=== PATIENT | male | born 1945 | race Caucasian/White ===

== ENCOUNTER 2018-04-18 11:01 | Inpatient (IN) | payer MEDICARE, MEDICAID ==
[~2018-04-18] VITALS: Ht 170.2 cm; Wt 43.1 kg
[2018-04-18] MEDS ORDERED: ALBU4TAB6 PO (11:04)
[2018-04-18] MEDS ORDERED: ALBUTEROL (0.083%) 2.5MG/3ML NEB HHN STA (11:31)
[2018-04-18] MEDS ORDERED: IPRATROPIUM BROMIDE (0.02%) 0.5MG/2.5ML NEB HHN STA (11:31)
[2018-04-18] MEDS ORDERED: SODIUM CHLORIDE 0.9% 1,000 ML IV ONE (11:35)
[2018-04-18 12:26] LABS: BASOPHILS % 0.4 % (0.0-2.0); EOSINOPHILS % 3.9 % (0.0-5.0); HEMATOCRIT. 41.3 % (42.0-52.0); HEMOGLOBIN. 13.1 g/dL (14.0-18.0); LYMPHOCYTES % 29.3 % (20.0-50.0); MEAN CORPUSCULAR HEMOGLOBIN 24.6 pg (28.0-32.0); MEAN CORPUSCULAR VOLUME 77.1 fL (80.0-94.0); MEAN PLATELET VOLUME 7.1 fl (7.4-10.4); MONOCYTES % 9.3 % (2.0-8.0); NEUTROPHILS % 57.1 % (40.0-76.0); PLATELET 277 x1000/uL (130-400); RED BLOOD CELL COUNT 5.35 mill/uL (4.7-6.1); RED CELL DISTRIBUTION WIDTH 15.6 % (11.6-14.6)
[2018-04-18 12:32] LABS: CHLORIDE 102 mEq/L (98-107)
[2018-04-18 12:34] LABS: PARTIAL THROMBOPLASTIN TIME 27.3 sec (23.4-31.0); PROTHROMBIN TIME 10.4 sec (9.1-11.1)
[2018-04-18 14:19] LABS: CLARITY URINE CLEAR (CLEAR); COLOR URINE YELLOW (YELLOW); KETONES URINE NEGATIVE (NEGATIVE); LEUKOCYTE ESTERASE URINE NEGATIVE (NEGATIVE); NITRITE URINE NEGATIVE (NEGATIVE); OCCULT BLOOD URINE NEGATIVE (NEGATIVE); PH URINE 6.5 (4.5-8.0); PROTEIN URINE TRACE (NEGATIVE); SPECIFIC GRAVITY URINE 1.016 (1.005-1.030); UROBILINOGEN URINE 0.2 E.U./dL (0.2-1.0)
[2018-04-18 14:53] LABS: *AMPHETAMINES SCREEN URINE NEGATIVE (NEGATIVE); *BARBITURATES SCREEN URINE NEGATIVE (NEGATIVE); *BENZODIAZEPINES SCREEN URINE NEGATIVE (NEGATIVE); *COCAINE SCREEN URINE PRESUMTIVE POSITIVE (NEGATIVE)
[2018-04-18 14:54] LABS: CANNABINOID URINE SCREEN NEGATIVE (NEGATIVE); METHADONE URINE SCREEN NEGATIVE (NEGATIVE); OPIATES URINE SCREEN NEGATIVE (NEGATIVE); PHENCYCLIDINE URINE SCREEN NEGATIVE (NEGATIVE)
[2018-04-18 15:30] VITALS: BP 120/67
[2018-04-18 16:00] VITALS: BP 120/67
[2018-04-18] MEDS ORDERED: GUAIFENESIN 200MG/10ML SUGAR FREE UDC PO PRN (17:00)
[2018-04-18] MEDS ORDERED: ONDANSETRON HCL 4MG/2ML INJ IV PRN (17:00)
[2018-04-18] MEDS ORDERED: MAGNESIUM/ALUMINUM HYDROXIDE/SIMETHICONE 30ML UDC PO PRN (17:00)
[2018-04-18] MEDS ORDERED: DEXT 5%/0.45% NACL 1000ML 1,000 ML IV SCH (17:00)
[2018-04-18] MEDS ORDERED: SODIUM POLYSTYRENE SULFONATE 15 G/60 ML BOT PO NR (17:00)
[2018-04-18] MEDS ORDERED: DIPHENHYDRAMINE 50MG/ML VIAL IV PRN (17:00)
[2018-04-18] MEDS ORDERED: IPRATROPIUM/ALBUTEROL 0.5-3(2.5)MG/3ML NEB INH PRN (17:00)
[2018-04-18] MEDS ORDERED: CLONIDINE 0.1MG TABLET PO PRN (17:00)
[2018-04-18] MEDS ORDERED: ACETAMINOPHEN 325MG TABLET PO PRN (17:00)
[2018-04-18] MEDS ORDERED: METHYLPREDNISOLONE SOD SUCC 40 MG/ML VIAL IV SCH (17:00)
[2018-04-18] MEDS ORDERED: MAGNESIUM HYDROXIDE 400MG/5ML 30ML UDC PO PRN (17:00)
[2018-04-18] MEDS ORDERED: PROMETHAZINE/DEXTROMETHORPHAN 6.25-15MG/5ML BOTTLE 120ML PO PRN (18:30)
[2018-04-18] MEDS: LORAZEPAM 1MG TABLET PO PRN (18:45)
[2018-04-18 20:08] VITALS: BP 147/93
[2018-04-18] MEDS: IPRATROPIUM/ALBUTEROL 0.5-3(2.5)MG/3ML NEB HHN SCH ×2 (20:10→23:42)
[2018-04-18] MEDS: GUAIFENESIN 600MG ER TABLET PO SCH (20:55)
[2018-04-18] MEDS: SODIUM CHLORIDE 0.9% 1,000 ML IV SCH (20:55)
[2018-04-18] MEDS ORDERED: TEMAZEPAM 15MG CAPSULE PO PRN (21:00)
[2018-04-18] MEDS ORDERED: GUAIFENESIN 600MG ER TABLET PO SCH (21:00)
[2018-04-18] MEDS ORDERED: FAMOTIDINE 20MG TABLET PO SCH (21:00)
[2018-04-19] VITALS: BP 141/87
[2018-04-19] MEDS: METHYLPREDNISOLONE SOD SUCC 40 MG/ML VIAL IV SCH ×3 (00:18→17:58)
[2018-04-19] MEDS: IPRATROPIUM/ALBUTEROL 0.5-3(2.5)MG/3ML NEB HHN SCH ×5 (03:22→19:51)
[2018-04-19 04:00] VITALS: BP 105/69
[2018-04-19 06:39] LABS: PHOSPHORUS 4.3 mg/dL (2.5-4.9)
[2018-04-19 06:40] LABS: BASOPHILS % 0.1 % (0.0-2.0); HEMATOCRIT. 38.9 % (42.0-52.0); HEMOGLOBIN. 12.4 g/dL (14.0-18.0); LYMPHOCYTES % 21.1 % (20.0-50.0); MEAN CORPUSCULAR HEMOGLOBIN 24.8 pg (28.0-32.0); MEAN PLATELET VOLUME 7.7 fl (7.4-10.4); MONOCYTES % 1.1 % (2.0-8.0); NEUTROPHILS % 77.7 % (40.0-76.0); PLATELET 270 x1000/uL (130-400); RED BLOOD CELL COUNT 4.98 mill/uL (4.7-6.1); RED CELL DISTRIBUTION WIDTH 15.5 % (11.6-14.6)
[2018-04-19] MEDS: LORAZEPAM 1MG TABLET PO PRN (09:29)
[2018-04-19] MEDS: FAMOTIDINE 20MG TABLET PO SCH (09:29)
[2018-04-19] MEDS: GUAIFENESIN 600MG ER TABLET PO SCH ×2 (09:29→21:30)
[2018-04-19] MEDS: SODIUM CHLORIDE 0.9% 1,000 ML IV SCH ×2 (09:48→22:05)
[2018-04-19 12:00] VITALS: BP 129/81
[2018-04-19 16:00] VITALS: BP 104/64
[2018-04-19] MEDS ORDERED: IPRATROPIUM/ALBUTEROL 0.5-3(2.5)MG/3ML NEB HHN SCH (18:00)
[2018-04-19] MEDS ORDERED: LORAZEPAM 0.5MG TABLET PO PRN (18:30)
[2018-04-19 20:00] VITALS: BP 106/59
[2018-04-20] VITALS: BP 115/60
[2018-04-20] MEDS: IPRATROPIUM/ALBUTEROL 0.5-3(2.5)MG/3ML NEB HHN SCH ×2 (02:10→09:08)
[2018-04-20 04:00] VITALS: BP 119/67
[2018-04-20 06:40] LABS: PHOSPHORUS 3.5 mg/dL (2.5-4.9)
[2018-04-20 07:56] VITALS: BP 126/78
[2018-04-20] MEDS: METHYLPREDNISOLONE SOD SUCC 40 MG/ML VIAL IV SCH ×2 (08:17)
[2018-04-20] MEDS: GUAIFENESIN 600MG ER TABLET PO SCH (08:19)
[2018-04-20] MEDS: FAMOTIDINE 20MG TABLET PO SCH (08:19)
[2018-04-20] MEDS ORDERED: IPRATROPIUM/ALBUTEROL 0.5-3(2.5)MG/3ML NEB HHN PRN (09:45)
[2018-04-20] MEDS ORDERED: TAMSULOSIN HCL 0.4MG SR CAPSULE PO SCH (09:45)
[2018-04-20 12:00] VITALS: BP 117/71
[2018-04-20] MEDS ORDERED: BUDESONIDE 0.5MG/2ML NEB HHN SCH (14:00)
[2018-04-20 16:00] VITALS: BP 119/70
[2018-04-20] MEDS ORDERED: METHYLPREDNISOLONE SOD SUCC 40 MG/ML VIAL IV SCH (16:00)
[2018-04-29] MEDS ORDERED: PRED10TA23 MT (15:26)
[2018-04-29] MEDS ORDERED: TAMS0.4C31 MT (15:27)
== END 2018-04-20 16:31 | disposition home or self-care (01) | DRG 140 ==
LOC: ER 11:01 → 6WST 14:19 → ENRESERV 14:32
PROVIDERS: ADMIT Internal Medicine; ATTEND Internal Medicine
DX: J44.1 Chronic obstructive pulmonary disease with (acute) exacerbation (principal); J96.00 Acute respiratory failure, unspecified whether with hypoxia or hypercapnia; N17.9 Acute kidney failure, unspecified; E44.0 Moderate protein-calorie malnutrition; E87.5 Hyperkalemia; N18.3 Chronic kidney disease, stage 3 (moderate); F17.210 Nicotine dependence, cigarettes, uncomplicated; J98.11 Atelectasis; H26.9 Unspecified cataract; E86.0 Dehydration; D56.9 Thalassemia, unspecified; F14.90 Cocaine use, unspecified, uncomplicated; Z90.3 Acquired absence of stomach [part of]; Z68.1 Body mass index [BMI] 19.9 or less, adult; Z82.49 Family history of ischemic heart disease and other diseases of the circulatory system; Z87.01 Personal history of pneumonia (recurrent); Z87.11 Personal history of peptic ulcer disease
CPT/HCPCS: 36415; 71045; 76770; 80048; 80053; 80305; 81003; 83540; 83550; 83690; 83735; 83880; 84100; 84484; 85025; 85610; 85730; 87804; 93005; 93306; 93970; 94640; 96360; 99285; J2920; J7030; J7611; J7620

== ENCOUNTER 2018-05-03 11:03 | Inpatient (IN) | payer MEDICARE, MEDICAID ==
[~2018-05-03] VITALS: Ht 172.7 cm; Wt 56.7 kg
[~2018-05-03 11:03] MED LIST: ALBU4TAB6 PO; PRED10TA23 MT; TAMS0.4C31 MT
[2018-05-03] MEDS ORDERED: ALBUTEROL (0.083%) 2.5MG/3ML NEB HHN STA (11:19)
[2018-05-03] MEDS ORDERED: METHYLPREDNISOLONE SOD SUCC 125 MG/2 ML VIAL IV STA (11:19)
[2018-05-03] MEDS ORDERED: IPRATROPIUM BROMIDE (0.02%) 0.5MG/2.5ML NEB HHN STA (11:19)
[2018-05-03 11:43] LABS: BASOPHILS % 0.4 % (0.0-2.0); EOSINOPHILS % 3.1 % (0.0-5.0); HEMATOCRIT. 38.5 % (42.0-52.0); HEMOGLOBIN. 12.1 g/dL (14.0-18.0); LYMPHOCYTES % 28.2 % (20.0-50.0); MEAN CORPUSCULAR HEMOGLOBIN 24.5 pg (28.0-32.0); MEAN CORPUSCULAR VOLUME 77.6 fL (80.0-94.0); MEAN PLATELET VOLUME 7.2 fl (7.4-10.4); MONOCYTES % 6.8 % (2.0-8.0); NEUTROPHILS % 61.5 % (40.0-76.0); PLATELET 341 x1000/uL (130-400); RED BLOOD CELL COUNT 4.96 mill/uL (4.7-6.1); RED CELL DISTRIBUTION WIDTH 15.8 % (11.6-14.6)
[2018-05-03 11:55] LABS: CHLORIDE 100 mEq/L (98-107)
[2018-05-03] MEDS ORDERED: IPRATROPIUM/ALBUTEROL 0.5-3(2.5)MG/3ML NEB INH PRN (20:00)
[2018-05-03] MEDS ORDERED: GUAIFENESIN 200MG/10ML SUGAR FREE UDC PO PRN (20:00)
[2018-05-03] MEDS ORDERED: MAGNESIUM/ALUMINUM HYDROXIDE/SIMETHICONE 30ML UDC PO PRN (20:00)
[2018-05-03] MEDS ORDERED: ONDANSETRON HCL 4MG/2ML INJ IV PRN (20:00)
[2018-05-03] MEDS ORDERED: TEMAZEPAM 15MG CAPSULE PO PRN (20:00)
[2018-05-03] MEDS ORDERED: ACETAMINOPHEN 325MG TABLET PO PRN (20:00)
[2018-05-03] MEDS ORDERED: LORAZEPAM 0.5MG TABLET PO PRN (20:00)
[2018-05-03] MEDS ORDERED: MAGNESIUM HYDROXIDE 400MG/5ML 30ML UDC PO PRN (20:00)
[2018-05-03 20:57] VITALS: BP 115/72
[2018-05-03] MEDS: SODIUM CHLORIDE 0.9% INJ 3ML FLUSH IVF SCH (22:38)
[2018-05-03] MEDS: METHYLPREDNISOLONE SOD SUCC 125 MG/2 ML VIAL IV SCH (22:38)
[2018-05-03] MEDS: IPRATROPIUM/ALBUTEROL 0.5-3(2.5)MG/3ML NEB HHN SCH (23:12)
[2018-05-03 23:42] VITALS: BP 115/72
[2018-05-04] VITALS: BP 123/62
[2018-05-04] MEDS: IPRATROPIUM/ALBUTEROL 0.5-3(2.5)MG/3ML NEB HHN SCH ×6 (04:16→21:36)
[2018-05-04] MEDS: METHYLPREDNISOLONE SOD SUCC 125 MG/2 ML VIAL IV SCH (06:08)
[2018-05-04] MEDS: SODIUM CHLORIDE 0.9% INJ 3ML FLUSH IVF SCH ×3 (06:08→22:56)
[2018-05-04 08:00] VITALS: BP 134/84
[2018-05-04] MEDS ORDERED: PNEUMOCOCCAL 23-VAL P-SAC VAC 0.5 ML IM ONE (08:00)
[2018-05-04] MEDS: GUAIFENESIN 600MG ER TABLET PO SCH ×2 (08:23→21:38)
[2018-05-04] MEDS: TAMSULOSIN HCL 0.4MG SR CAPSULE PO SCH (08:24)
[2018-05-04] MEDS: FAMOTIDINE 20MG TABLET PO SCH (08:24)
[2018-05-04] MEDS ORDERED: INFLUENZA VIRUS VACCINE(AFLURIA) 0.5ML SYR IM ONE (10:00)
[2018-05-04] MEDS ORDERED: BENZONATATE 100MG CAPSULE PO PRN (11:00)
[2018-05-04 12:00] VITALS: BP 100/60
[2018-05-04 16:00] VITALS: BP 103/63
[2018-05-04 16:43] LABS: *AMPHETAMINES SCREEN URINE NEGATIVE (NEGATIVE); *BARBITURATES SCREEN URINE NEGATIVE (NEGATIVE); *BENZODIAZEPINES SCREEN URINE NEGATIVE (NEGATIVE); *COCAINE SCREEN URINE PRESUMTIVE POSITIVE (NEGATIVE)
[2018-05-04 16:44] LABS: CANNABINOID URINE SCREEN NEGATIVE (NEGATIVE); METHADONE URINE SCREEN NEGATIVE (NEGATIVE); OPIATES URINE SCREEN NEGATIVE (NEGATIVE); PHENCYCLIDINE URINE SCREEN NEGATIVE (NEGATIVE)
[2018-05-04] MEDS: METHYLPREDNISOLONE SOD SUCC 40 MG/ML VIAL IV SCH (17:33)
[2018-05-04 20:00] VITALS: BP 121/79
[2018-05-05] VITALS: BP 106/62
[2018-05-05] MEDS: IPRATROPIUM/ALBUTEROL 0.5-3(2.5)MG/3ML NEB HHN SCH ×5 (01:07→22:13)
[2018-05-05 04:00] VITALS: BP 110/71
[2018-05-05] MEDS: SODIUM CHLORIDE 0.9% INJ 3ML FLUSH IVF SCH ×2 (06:02→20:58)
[2018-05-05 08:00] VITALS: BP 138/90
[2018-05-05] MEDS: TAMSULOSIN HCL 0.4MG SR CAPSULE PO SCH (10:09)
[2018-05-05] MEDS: FAMOTIDINE 20MG TABLET PO SCH (10:09)
[2018-05-05] MEDS: GUAIFENESIN 600MG ER TABLET PO SCH ×2 (10:09→20:56)
[2018-05-05] MEDS: METHYLPREDNISOLONE SOD SUCC 40 MG/ML VIAL IV SCH (10:10)
[2018-05-05 12:00] VITALS: BP 110/69
[2018-05-05 16:00] VITALS: BP 100/54
[2018-05-05 20:00] VITALS: BP_SYST 120; BP_SYST 160; BP_DIAS 76; BP_DIAS 83
[2018-05-06 04:00] VITALS: BP 117/65
[2018-05-06] MEDS: IPRATROPIUM/ALBUTEROL 0.5-3(2.5)MG/3ML NEB HHN SCH ×4 (05:54→20:55)
[2018-05-06] MEDS: SODIUM CHLORIDE 0.9% INJ 3ML FLUSH IVF SCH ×3 (06:28→22:47)
[2018-05-06 08:00] VITALS: BP 109/85
[2018-05-06] MEDS: GUAIFENESIN 600MG ER TABLET PO SCH ×2 (09:30→21:42)
[2018-05-06] MEDS: FAMOTIDINE 20MG TABLET PO SCH (09:30)
[2018-05-06] MEDS: PREDNISONE 20MG TABLET PO SCH (09:30)
[2018-05-06] MEDS: TAMSULOSIN HCL 0.4MG SR CAPSULE PO SCH (09:31)
[2018-05-06 12:00] VITALS: BP 94/54
[2018-05-06 12:03] LABS: BG BASE EXCESS 7.2 mmol/L (-2.0-2.0); BG CARBOXYHEMOGLOBIN 0.8 % (0.5-1.5); BG DEOXYHEMOGLOBIN 5.5 % (0.0-5.0); BG FRACTION INSPIRED OXYGEN 21; BG HCO3 ACT 33.2 mmol/L (22.0-26.0); BG METHEMOGLOBIN 0.2 % (0.0-1.5); BG OXYGEN SATURATION 94.4 % (92.0-98.5); BG OXYHEMOGLOBIN 93.5 % (94.0-97.0); BG PCO2 53.5 mmHg (35.0-45.0); BG PO2 71.5 mmHg (75.0-100.0); BG SAMPLE SITE RIGHT RADIAL; BG TOTAL HEMOGLOBIN 11.8 g/dL (12.0-18.0); BG VENT MODE ROOM AIR
[2018-05-06 16:00] VITALS: BP 103/75
[2018-05-06 20:00] VITALS: BP 128/77
[2018-05-07] VITALS: BP 107/70
[2018-05-07] MEDS: IPRATROPIUM/ALBUTEROL 0.5-3(2.5)MG/3ML NEB HHN SCH ×5 (00:31→16:00)
[2018-05-07 04:00] VITALS: BP 104/69
[2018-05-07] MEDS: SODIUM CHLORIDE 0.9% INJ 3ML FLUSH IVF SCH ×2 (07:31→17:03)
[2018-05-07] MEDS: TAMSULOSIN HCL 0.4MG SR CAPSULE PO SCH (09:11)
[2018-05-07] MEDS: FAMOTIDINE 20MG TABLET PO SCH (09:12)
[2018-05-07] MEDS: GUAIFENESIN 600MG ER TABLET PO SCH (09:12)
[2018-05-07] MEDS: PREDNISONE 20MG TABLET PO SCH (09:12)
[2018-05-07 18:05] VITALS: BP 102/56
== END 2018-05-07 18:35 | disposition home or self-care (01) | DRG 816 ==
LOC: ER 11:03 → 5WST 12:25 → ENRESERV 18:59
PROVIDERS: ADMIT Internal Medicine; ATTEND Internal Medicine
DX: T40.5X1A Poisoning by cocaine, accidental (unintentional), initial encounter (principal); J96.00 Acute respiratory failure, unspecified whether with hypoxia or hypercapnia; J44.1 Chronic obstructive pulmonary disease with (acute) exacerbation; E44.1 Mild protein-calorie malnutrition; J45.901 Unspecified asthma with (acute) exacerbation; J68.0 Bronchitis and pneumonitis due to chemicals, gases, fumes and vapors; Z96.641 Presence of right artificial hip joint; D72.829 Elevated white blood cell count, unspecified; F14.90 Cocaine use, unspecified, uncomplicated; H54.7 Unspecified visual loss; K44.9 Diaphragmatic hernia without obstruction or gangrene; N18.9 Chronic kidney disease, unspecified; N40.0 Benign prostatic hyperplasia without lower urinary tract symptoms; Z87.11 Personal history of peptic ulcer disease; Z87.891 Personal history of nicotine dependence; Z90.3 Acquired absence of stomach [part of]; Z91.14 Patient's other noncompliance with medication regimen; Z88.0 Allergy status to penicillin; Z79.899 Other long term (current) drug therapy; Y92.89 Other specified places as the place of occurrence of the external cause; Z68.1 Body mass index [BMI] 19.9 or less, adult
CPT/HCPCS: 36415; 36600; 71045; 80305; 82375; 82805; 83880; 84484; 90686; 90732; 93005; 94618; 94640; 96374; 97116; 97162; 99285; C1893; J2920; J2930; J7512; J7611; J7620

== ENCOUNTER 2018-05-16 05:52 | Inpatient (IN) | payer MEDICARE, MEDICAID ==
[~2018-05-16] VITALS: Ht 172.7 cm; Wt 85.0 kg
[2018-05-16] MEDS ORDERED: METHYLPREDNISOLONE SOD SUCC 125 MG/2 ML VIAL IV STA (06:34)
[2018-05-16] MEDS ORDERED: IPRATROPIUM BROMIDE (0.02%) 0.5MG/2.5ML NEB HHN STA ×2 (06:34→09:34)
[2018-05-16] MEDS ORDERED: ALBUTEROL (0.083%) 2.5MG/3ML NEB HHN STA ×2 (06:34→09:34)
[2018-05-16] MEDS ORDERED: MAGNESIUM 2 G PREMIX 50 ML IV STA (06:34)
[2018-05-16] MEDS ORDERED: LEVOFLOXACIN 500MG PREMIX 100 ML IV ONE (06:45)
[2018-05-16] MEDS ORDERED: SODIUM CHLORIDE 0.9% 1000ML BAG (SEPSIS BOLUS) IV ONE (06:45)
[2018-05-16 07:19] LABS: BASOPHILS % 0.2 % (0.0-2.0); EOSINOPHILS % 0.8 % (0.0-5.0); HEMATOCRIT. 34.5 % (42.0-52.0); HEMOGLOBIN. 10.9 g/dL (14.0-18.0); LYMPHOCYTES % 26.6 % (20.0-50.0); MEAN CORPUSCULAR HEMOGLOBIN 24.3 pg (28.0-32.0); MEAN CORPUSCULAR VOLUME 77.1 fL (80.0-94.0); MONOCYTES % 4.4 % (2.0-8.0); PLATELET 319 x1000/uL (130-400); RED BLOOD CELL COUNT 4.47 mill/uL (4.7-6.1); RED CELL DISTRIBUTION WIDTH 15.8 % (11.6-14.6)
[2018-05-16 07:27] LABS: PARTIAL THROMBOPLASTIN TIME 26.9 sec (23.4-31.0)
[2018-05-16 07:30] LABS: CHLORIDE 105 mEq/L (98-107)
[2018-05-16] MEDS ORDERED: IBUPROFEN 600MG TABLET PO PRN (11:30)
[2018-05-16] MEDS: FAMOTIDINE 20MG TABLET PO SCH (12:00)
[2018-05-16 13:00] VITALS: BP 107/46
[2018-05-16] MEDS: METHYLPREDNISOLONE SOD SUCC 125 MG/2 ML VIAL IV SCH ×2 (13:58→21:30)
[2018-05-16] MEDS ORDERED: ONDANSETRON HCL 4MG/2ML INJ IV PRN (15:15)
[2018-05-16] MEDS ORDERED: GUAIFENESIN 200MG/10ML SUGAR FREE UDC PO PRN (15:15)
[2018-05-16] MEDS ORDERED: CLONIDINE 0.1MG TABLET PO PRN (15:15)
[2018-05-16] MEDS ORDERED: IPRATROPIUM/ALBUTEROL 0.5-3(2.5)MG/3ML NEB INH PRN (15:15)
[2018-05-16] MEDS ORDERED: MAGNESIUM/ALUMINUM HYDROXIDE/SIMETHICONE 30ML UDC PO PRN (15:15)
[2018-05-16] MEDS: IPRATROPIUM/ALBUTEROL 0.5-3(2.5)MG/3ML NEB HHN SCH ×2 (15:24→21:06)
[2018-05-16 16:00] VITALS: BP 105/57
[2018-05-16] MEDS ORDERED: MVI, ADULT NO.1 10 ML, FOLIC ACID 1 MG, THIAMINE HCL 100 MG in SODIUM CHLORIDE 0.9% 1,0... IV NR ×4 (17:30)
[2018-05-16 20:00] VITALS: BP 104/54
[2018-05-17] VITALS: BP 112/22
[2018-05-17] MEDS: IPRATROPIUM/ALBUTEROL 0.5-3(2.5)MG/3ML NEB HHN SCH ×8 (01:05→23:40)
[2018-05-17 04:30] VITALS: BP 112/66
[2018-05-17] MEDS: METHYLPREDNISOLONE SOD SUCC 125 MG/2 ML VIAL IV SCH ×3 (05:22→21:07)
[2018-05-17] MEDS: ACETAMINOPHEN 325MG TABLET PO PRN (05:37)
[2018-05-17 07:17] LABS: CLARITY URINE CLEAR (CLEAR); COLOR URINE YELLOW (YELLOW); KETONES URINE NEGATIVE (NEGATIVE); LEUKOCYTE ESTERASE URINE NEGATIVE (NEGATIVE); NITRITE URINE NEGATIVE (NEGATIVE); OCCULT BLOOD URINE NEGATIVE (NEGATIVE); PH URINE 5.5 (4.5-8.0); PROTEIN URINE NEGATIVE (NEGATIVE); SPECIFIC GRAVITY URINE 1.008 (1.005-1.030); UROBILINOGEN URINE 0.2 E.U./dL (0.2-1.0)
[2018-05-17 08:00] VITALS: BP 113/61
[2018-05-17] MEDS: TAMSULOSIN HCL 0.4MG SR CAPSULE PO SCH (09:12)
[2018-05-17] MEDS: FAMOTIDINE 20MG TABLET PO SCH (09:12)
[2018-05-17 12:00] VITALS: BP 120/66
[2018-05-17] MEDS: DEXT 5%/0.45% NACL 1000ML 1,000 ML IV SCH ×2 (13:37→22:55)
[2018-05-17 16:13] VITALS: BP 127/63
[2018-05-17 17:07] LABS: *AMPHETAMINES SCREEN URINE NEGATIVE (NEGATIVE); *BARBITURATES SCREEN URINE NEGATIVE (NEGATIVE); *BENZODIAZEPINES SCREEN URINE NEGATIVE (NEGATIVE); *COCAINE SCREEN URINE PRESUMTIVE POSITIVE (NEGATIVE)
[2018-05-17 17:08] LABS: CANNABINOID URINE SCREEN NEGATIVE (NEGATIVE); METHADONE URINE SCREEN NEGATIVE (NEGATIVE); OPIATES URINE SCREEN NEGATIVE (NEGATIVE); PHENCYCLIDINE URINE SCREEN NEGATIVE (NEGATIVE)
[2018-05-17] MEDS ORDERED: KETOROLAC 15MG/ML VIAL IV NR (18:30)
[2018-05-17 20:00] VITALS: BP 128/74
[2018-05-18] VITALS (7 sets, daily range): BP systolic 99–126; BP diastolic 60–84
[2018-05-18] MEDS: METHYLPREDNISOLONE SOD SUCC 125 MG/2 ML VIAL IV SCH ×2 (05:15→14:50)
[2018-05-18] MEDS: ACETAMINOPHEN 325MG TABLET PO PRN ×3 (06:29→20:04)
[2018-05-18] MEDS: IPRATROPIUM/ALBUTEROL 0.5-3(2.5)MG/3ML NEB HHN SCH ×5 (07:34→21:17)
[2018-05-18 08:11] LABS: BASOPHILS % 0.1 % (0.0-2.0); HEMATOCRIT. 34.3 % (42.0-52.0); HEMOGLOBIN. 10.6 g/dL (14.0-18.0); LYMPHOCYTES % 20.4 % (20.0-50.0); MEAN CORPUSCULAR HEMOGLOBIN 24.1 pg (28.0-32.0); MEAN CORPUSCULAR VOLUME 77.7 fL (80.0-94.0); MEAN PLATELET VOLUME 7.6 fl (7.4-10.4); MONOCYTES % 4.2 % (2.0-8.0); NEUTROPHILS % 75.3 % (40.0-76.0); PLATELET 325 x1000/uL (130-400); RED BLOOD CELL COUNT 4.42 mill/uL (4.7-6.1); RED CELL DISTRIBUTION WIDTH 15.9 % (11.6-14.6)
[2018-05-18] MEDS: FAMOTIDINE 20MG TABLET PO SCH (09:57)
[2018-05-18] MEDS: TAMSULOSIN HCL 0.4MG SR CAPSULE PO SCH (09:57)
[2018-05-18] MEDS: DEXT 5%/0.45% NACL 1000ML 1,000 ML IV SCH (09:58)
[2018-05-18] MEDS: METHYLPREDNISOLONE SOD SUCC 40 MG/ML VIAL IV SCH (20:04)
[2018-05-19] VITALS: BP 110/60
[2018-05-19] MEDS: IPRATROPIUM/ALBUTEROL 0.5-3(2.5)MG/3ML NEB HHN SCH ×4 (00:54→11:01)
[2018-05-19 04:00] VITALS: BP 139/61
[2018-05-19] MEDS: DEXT 5%/0.45% NACL 1000ML 1,000 ML IV SCH ×2 (04:46→15:30)
[2018-05-19] MEDS: TAMSULOSIN HCL 0.4MG SR CAPSULE PO SCH (10:02)
[2018-05-19] MEDS: METHYLPREDNISOLONE SOD SUCC 40 MG/ML VIAL IV SCH (10:02)
[2018-05-19] MEDS: ACETAMINOPHEN 325MG TABLET PO PRN (10:02)
[2018-05-19] MEDS: FAMOTIDINE 20MG TABLET PO SCH (10:02)
[2018-05-19 12:00] VITALS: BP 114/72
[2018-05-19 15:22] VITALS: BP 114/72
[2018-05-19 16:00] VITALS: BP 164/69
[2018-05-19 17:00] VITALS: BP 139/62
== END 2018-05-19 17:10 | disposition home or self-care (01) | DRG 816 ==
LOC: ER 05:52 → 8WST 08:10 → EDBEDREQ 08:14 → ENRESERV 09:36
PROVIDERS: ADMIT Internal Medicine; ATTEND Internal Medicine
DX: T40.5X1A Poisoning by cocaine, accidental (unintentional), initial encounter (principal); J96.00 Acute respiratory failure, unspecified whether with hypoxia or hypercapnia; N17.9 Acute kidney failure, unspecified; R65.10 Systemic inflammatory response syndrome (SIRS) of non-infectious origin without acute organ dysfunction; J68.0 Bronchitis and pneumonitis due to chemicals, gases, fumes and vapors; J44.1 Chronic obstructive pulmonary disease with (acute) exacerbation; E86.0 Dehydration; N18.9 Chronic kidney disease, unspecified; K30 Functional dyspepsia; M25.511 Pain in right shoulder; T38.0X5A Adverse effect of glucocorticoids and synthetic analogues, initial encounter; D72.829 Elevated white blood cell count, unspecified; W01.0XXA Fall on same level from slipping, tripping and stumbling without subsequent striking against object, initial encounter; H54.7 Unspecified visual loss; Z96.641 Presence of right artificial hip joint; N40.0 Benign prostatic hyperplasia without lower urinary tract symptoms; H26.9 Unspecified cataract; Z87.11 Personal history of peptic ulcer disease; Z87.891 Personal history of nicotine dependence; Z90.3 Acquired absence of stomach [part of]; Z88.0 Allergy status to penicillin; Z79.899 Other long term (current) drug therapy; Z87.01 Personal history of pneumonia (recurrent); Y92.89 Other specified places as the place of occurrence of the external cause; Z87.81 Personal history of (healed) traumatic fracture; Y93.89 Activity, other specified; Y99.8 Other external cause status
CPT/HCPCS: 36415; 71045; 73030; 73060; 80048; 80305; 83605; 83880; 84145; 84484; 93005; 96365; 96366; 96375; 99291; A4565; J1885; J1956; J2920; J2930; J3411; J3475; J3490; J7030; J7611; J7620

== ENCOUNTER 2018-05-30 12:49 | Inpatient (IN) | payer MEDICARE, MEDICAID ==
[~2018-05-30] VITALS: Ht 172.7 cm; Wt 61.2 kg
[~2018-05-30 12:49] MED LIST changes: -ALBU4TAB6 PO; -PRED10TA23 MT; -TAMS0.4C31 MT; +TAMS0.4C31 PO
[2018-05-30] MEDS ORDERED: ALBUTEROL (0.083%) 2.5MG/3ML NEB HHN STA (12:53)
[2018-05-30] MEDS ORDERED: METHYLPREDNISOLONE SOD SUCC 125 MG/2 ML VIAL IV STA (12:53)
[2018-05-30 15:34] LABS: BASOPHILS % 0.1 % (0.0-2.0); EOSINOPHILS % 1.2 % (0.0-5.0); HEMATOCRIT. 35.1 % (42.0-52.0); HEMOGLOBIN. 10.9 g/dL (14.0-18.0); LYMPHOCYTES % 24.5 % (20.0-50.0); MEAN CORPUSCULAR HEMOGLOBIN 24.2 pg (28.0-32.0); MEAN CORPUSCULAR VOLUME 77.7 fL (80.0-94.0); MEAN PLATELET VOLUME 7.2 fl (7.4-10.4); MONOCYTES % 4.3 % (2.0-8.0); NEUTROPHILS % 69.9 % (40.0-76.0); PLATELET 390 x1000/uL (130-400); RED BLOOD CELL COUNT 4.51 mill/uL (4.7-6.1); RED CELL DISTRIBUTION WIDTH 16.3 % (11.6-14.6)
[2018-05-30 15:35] LABS: CHLORIDE 101 mEq/L (98-107)
[2018-05-30 16:00] VITALS: BP 95/68
[2018-05-30 18:14] VITALS: BP 95/68
[2018-05-30] MEDS ORDERED: DEXTROSE 50% WATER 50ML SYRINGE IV PRN (18:30)
[2018-05-30] MEDS ORDERED: MAGNESIUM/ALUMINUM HYDROXIDE/SIMETHICONE 30ML UDC PO PRN (18:30)
[2018-05-30] MEDS ORDERED: ACETAMINOPHEN 650MG/20.3ML UDC GT PRN (18:30)
[2018-05-30] MEDS ORDERED: ACETAMINOPHEN 650MG SUPP PR PRN (18:30)
[2018-05-30] MEDS ORDERED: GUAIFENESIN 200MG/10ML SUGAR FREE UDC PO PRN (18:30)
[2018-05-30] MEDS ORDERED: DIPHENHYDRAMINE 50MG/ML VIAL IV PRN (18:30)
[2018-05-30] MEDS ORDERED: DOCUSATE SODIUM 100MG CAPSULE PO PRN (18:30)
[2018-05-30] MEDS ORDERED: CLONIDINE 0.1MG TABLET PO PRN (18:30)
[2018-05-30] MEDS ORDERED: NA PHOS,M-B/NA PHOS,DI-BA ENEMA 118ML PR PRN (18:30)
[2018-05-30] MEDS ORDERED: ONDANSETRON HCL 4MG/2ML INJ IV PRN (18:30)
[2018-05-30] MEDS ORDERED: ENOXAPARIN 40MG/0.4ML SYR SUBCUT SCH (18:45)
[2018-05-30 19:03] LABS: D-DIMER 1.12 mg/L FEU (<0.50); PROTHROMBIN TIME 10.1 sec (9.1-11.1)
[2018-05-30] MEDS: IPRATROPIUM/ALBUTEROL 0.5-3(2.5)MG/3ML NEB INH SCH (19:37)
[2018-05-30 20:00] VITALS: BP 109/64
[2018-05-30] MEDS ORDERED: SODIUM CHLORIDE 10% FOR INH 15ML VIAL NEB INH NR (20:00)
[2018-05-30] MEDS: ACETAMINOPHEN 325MG TABLET PO PRN (20:49)
[2018-05-30] MEDS: SODIUM CHLORIDE 0.9% 1,000 ML IV SCH (20:50)
[2018-05-30] MEDS: BLOOD SUGAR DIAGNOSTIC STRIP TEST SCH (21:04)
[2018-05-30] MEDS: INSULIN LISPRO 100 UNITS/ML SUBCUT SCH (21:11)
[2018-05-30] MEDS: AZITHROMYCIN 500 MG in DEXT 5% WATER 250 ML IV SCH (21:31)
[2018-05-30] MEDS ORDERED: SODIUM CHLORIDE 0.9% INJ 3ML FLUSH IVF SCH (22:00)
[2018-05-30] MEDS ORDERED: P20 PO (22:12)
[2018-05-30] MEDS ORDERED: ASPI-1159 PO (22:13)
[2018-05-30] MEDS ORDERED: LEVO500T89 PO (22:13)
[2018-05-30] MEDS ORDERED: MONT10TA21 PO (22:13)
[2018-05-30] MEDS ORDERED: PRED10TA23 PO (22:14)
[2018-05-30] MEDS ORDERED: CARV3.1242 PO (22:15)
[2018-05-30] MEDS ORDERED: BUDE6HFA INH (22:15)
[2018-05-30 23:36] LABS: CREATINE KINASE 37 IU/L (39-308)
[2018-05-30 23:37] LABS: CREATINE KINASE MB FRACTION 2.9 ng/mL (0.5-3.6)
[2018-05-30] MEDS: CEFTRIAXONE 1 G PREMIX 50 ML IV SCH (23:54)
[2018-05-31] VITALS: BP 97/59
[2018-05-31] MEDS: IPRATROPIUM/ALBUTEROL 0.5-3(2.5)MG/3ML NEB INH SCH ×4 (02:05→18:50)
[2018-05-31 04:00] VITALS: BP 100/61
[2018-05-31 05:09] LABS: CLARITY URINE CLEAR (CLEAR); COLOR URINE YELLOW (YELLOW); KETONES URINE NEGATIVE (NEGATIVE); LEUKOCYTE ESTERASE URINE NEGATIVE (NEGATIVE); NITRITE URINE NEGATIVE (NEGATIVE); OCCULT BLOOD URINE NEGATIVE (NEGATIVE); PROTEIN URINE NEGATIVE (NEGATIVE); SPECIFIC GRAVITY URINE 1.024 (1.005-1.030); UROBILINOGEN URINE 0.2 E.U./dL (0.2-1.0)
[2018-05-31 05:36] LABS: *AMPHETAMINES SCREEN URINE NEGATIVE (NEGATIVE); *BARBITURATES SCREEN URINE NEGATIVE (NEGATIVE); *BENZODIAZEPINES SCREEN URINE NEGATIVE (NEGATIVE); *COCAINE SCREEN URINE PRESUMTIVE POSITIVE (NEGATIVE)
[2018-05-31 05:37] LABS: CANNABINOID URINE SCREEN NEGATIVE (NEGATIVE); METHADONE URINE SCREEN NEGATIVE (NEGATIVE); OPIATES URINE SCREEN NEGATIVE (NEGATIVE); PHENCYCLIDINE URINE SCREEN NEGATIVE (NEGATIVE)
[2018-05-31] MEDS: BLOOD SUGAR DIAGNOSTIC STRIP TEST SCH ×4 (06:22→22:00)
[2018-05-31 06:24] LABS: HEMATOCRIT. 29.5 % (42.0-52.0); HEMOGLOBIN. 9.5 g/dL (14.0-18.0); MEAN CORPUSCULAR HEMOGLOBIN 24.9 pg (28.0-32.0); MEAN CORPUSCULAR VOLUME 77.2 fL (80.0-94.0); MEAN PLATELET VOLUME 7.3 fl (7.4-10.4); PLATELET 352 x1000/uL (130-400); RED BLOOD CELL COUNT 3.82 mill/uL (4.7-6.1); RED CELL DISTRIBUTION WIDTH 15.7 % (11.6-14.6)
[2018-05-31] MEDS: GLIPIZIDE 5MG TABLET PO SCH ×2 (06:24→18:12)
[2018-05-31] MEDS: ACETAMINOPHEN 325MG TABLET PO PRN ×2 (06:26→20:37)
[2018-05-31] MEDS: INSULIN LISPRO 100 UNITS/ML SUBCUT SCH ×4 (06:27→22:05)
[2018-05-31 06:46] LABS: CHLORIDE 103 mEq/L (98-107)
[2018-05-31 07:13] LABS: LDL CHOLESTEROL 90 mg/dL (5-100)
[2018-05-31 07:14] LABS: CREATINE KINASE 40 IU/L (39-308); HDL CHOLESTEROL 61 mg/dL (40-59)
[2018-05-31 07:17] LABS: CREATINE KINASE MB FRACTION 2.6 ng/mL (0.5-3.6)
[2018-05-31 07:29] LABS: BG BASE EXCESS 0.8 mmol/L (-2.0-2.0); BG CARBOXYHEMOGLOBIN 0.5 % (0.5-1.5); BG DEOXYHEMOGLOBIN 5.6 % (0.0-5.0); BG HCO3 ACT 26.1 mmol/L (22.0-26.0); BG METHEMOGLOBIN 0.3 % (0.0-1.5); BG OXYGEN SATURATION 94.4 % (92.0-98.5); BG OXYHEMOGLOBIN 93.6 % (94.0-97.0); BG PCO2 44.8 mmHg (35.0-45.0); BG PH 7.384 (7.350-7.450); BG PO2 75.4 mmHg (75.0-100.0); BG SAMPLE SITE RIGHT RADIAL; BG TOTAL HEMOGLOBIN 10.5 g/dL (12.0-18.0); BG VENT MODE ROOM AIR
[2018-05-31 12:00] VITALS: BP 111/64
[2018-05-31 13:11] LABS: PLATELET ESTIMATE NORMAL
[2018-05-31 16:00] VITALS: BP 123/69
[2018-05-31] MEDS: SODIUM CHLORIDE 0.9% 1,000 ML IV SCH ×2 (18:14→19:30)
[2018-05-31 20:00] VITALS: BP 98/69
[2018-05-31] MEDS: AZITHROMYCIN 500 MG in DEXT 5% WATER 250 ML IV SCH (20:36)
[2018-05-31] MEDS: IPRATROPIUM/ALBUTEROL 0.5-3(2.5)MG/3ML NEB INH PRN (21:24)
[2018-05-31] MEDS: CEFTRIAXONE 1 G PREMIX 50 ML IV SCH (22:34)
[2018-06-01] VITALS: BP 91/50
[2018-06-01] MEDS: IPRATROPIUM/ALBUTEROL 0.5-3(2.5)MG/3ML NEB INH SCH ×3 (01:55→12:50)
[2018-06-01 04:00] VITALS: BP 106/61
[2018-06-01 05:36] LABS: HEMOGLOBIN. 9.4 g/dL (14.0-18.0); MEAN CORPUSCULAR HEMOGLOBIN 25.1 pg (28.0-32.0); MEAN CORPUSCULAR VOLUME 77.7 fL (80.0-94.0); MEAN PLATELET VOLUME 7.3 fl (7.4-10.4); PLATELET 329 x1000/uL (130-400); RED BLOOD CELL COUNT 3.74 mill/uL (4.7-6.1); RED CELL DISTRIBUTION WIDTH 15.7 % (11.6-14.6)
[2018-06-01] MEDS: ACETAMINOPHEN 325MG TABLET PO PRN (05:51)
[2018-06-01] MEDS: INSULIN LISPRO 100 UNITS/ML SUBCUT SCH ×3 (06:02→16:31)
[2018-06-01] MEDS: BLOOD SUGAR DIAGNOSTIC STRIP TEST SCH ×3 (06:03→16:31)
[2018-06-01 06:22] LABS: CHLORIDE 103 mEq/L (98-107)
[2018-06-01] MEDS: GLIPIZIDE 5MG TABLET PO SCH ×2 (10:00→16:31)
[2018-06-01] MEDS: SODIUM CHLORIDE 0.9% 1,000 ML IV SCH (10:02)
[2018-06-01 11:15] VITALS: BP 98/54
[2018-06-01 12:00] VITALS: BP 104/61
[2018-06-01 12:28] LABS: PLATELET ESTIMATE NORMAL
[2018-06-01] MEDS ORDERED: NEOMY SULF/BACITRAC ZN/POLY OINT 28GM TOP SCH (13:00)
[2018-06-01] MEDS: IPRATROPIUM/ALBUTEROL 0.5-3(2.5)MG/3ML NEB INH PRN (15:22)
[2018-06-01 16:00] VITALS: BP 123/78
[2018-06-01 16:32] VITALS: BP 123/78
== END 2018-06-01 17:55 | disposition home or self-care (01) | DRG 816 ==
LOC: ER 12:49 → EDBEDREQ 15:50 → 5WST 15:51 → EDBEDREQ 15:53 → ENRESERV 15:55
PROVIDERS: ADMIT Family Medicine; ATTEND Family Medicine
DX: T40.5X1A Poisoning by cocaine, accidental (unintentional), initial encounter (principal); J96.20 Acute and chronic respiratory failure, unspecified whether with hypoxia or hypercapnia; E44.0 Moderate protein-calorie malnutrition; E11.22 Type 2 diabetes mellitus with diabetic chronic kidney disease; E11.36 Type 2 diabetes mellitus with diabetic cataract; I50.9 Heart failure, unspecified; J68.0 Bronchitis and pneumonitis due to chemicals, gases, fumes and vapors; J44.1 Chronic obstructive pulmonary disease with (acute) exacerbation; J44.0 Chronic obstructive pulmonary disease with (acute) lower respiratory infection; N18.9 Chronic kidney disease, unspecified; J20.9 Acute bronchitis, unspecified; F14.10 Cocaine abuse, uncomplicated; F17.210 Nicotine dependence, cigarettes, uncomplicated; H54.7 Unspecified visual loss; S30.810A Abrasion of lower back and pelvis, initial encounter; N40.0 Benign prostatic hyperplasia without lower urinary tract symptoms; Z96.641 Presence of right artificial hip joint; Z59.0 Homelessness; Z87.01 Personal history of pneumonia (recurrent); Z87.11 Personal history of peptic ulcer disease; Z88.0 Allergy status to penicillin; Z90.3 Acquired absence of stomach [part of]; Z87.81 Personal history of (healed) traumatic fracture; Z98.42 Cataract extraction status, left eye; Z98.41 Cataract extraction status, right eye; Z71.6 Tobacco abuse counseling; Z79.82 Long term (current) use of aspirin; Z79.899 Other long term (current) drug therapy; Z71.51 Drug abuse counseling and surveillance of drug abuser; X58.XXXA Exposure to other specified factors, initial encounter; Y92.89 Other specified places as the place of occurrence of the external cause; Y93.89 Activity, other specified; Y99.8 Other external cause status; Z68.20 Body mass index [BMI] 20.0-20.9, adult
CPT/HCPCS: 36415; 36600; 71045; 80061; 80305; 82375; 82550; 82553; 82805; 82962; 83036; 83880; 84134; 84484; 85379; 87804; 93005; 93970; 94640; 94644; 96374; 99285; J0456; J0696; J1650; J1815; J2930; J7030; J7060; J7131; J7611; J7620

== ENCOUNTER 2018-06-11 06:22 | Inpatient (IN) | payer MEDICARE, MEDICAID ==
[~2018-06-11] VITALS: Ht 165.1 cm; Wt 67.6 kg
[~2018-06-11 06:22] MED LIST changes: +ASPI-1159 PO; +BUDE6HFA INH; +CARV3.1242 PO; +LEVO500T89 PO; +MONT10TA21 PO; +P20 PO; +PRED10TA23 PO
[2018-06-11] MEDS ORDERED: IPRATROPIUM BROMIDE (0.02%) 0.5MG/2.5ML NEB HHN STA (06:48)
[2018-06-11] MEDS ORDERED: ALBUTEROL (0.083%) 2.5MG/3ML NEB HHN STA (06:48)
[2018-06-11] MEDS ORDERED: METHYLPREDNISOLONE SOD SUCC 125 MG/2 ML VIAL IV STA (06:48)
[2018-06-11 07:19] LABS: HEMATOCRIT. 29.5 % (42.0-52.0); HEMOGLOBIN. 9.7 g/dL (14.0-18.0); MEAN CORPUSCULAR HEMOGLOBIN 24.8 pg (28.0-32.0); MEAN CORPUSCULAR VOLUME 75.8 fL (80.0-94.0); PLATELET 383 x1000/uL (130-400); RED BLOOD CELL COUNT 3.89 mill/uL (4.7-6.1); RED CELL DISTRIBUTION WIDTH 15.4 % (11.6-14.6)
[2018-06-11 07:21] LABS: CHLORIDE 92 mEq/L (98-107)
[2018-06-11 08:08] LABS: BG BASE EXCESS -0.4 mmol/L (-2.0-2.0); BG CARBOXYHEMOGLOBIN 0.9 % (0.5-1.5); BG DEOXYHEMOGLOBIN 1.6 % (0.0-5.0); BG HCO3 ACT 24.4 mmol/L (22.0-26.0); BG METHEMOGLOBIN 0.1 % (0.0-1.5); BG OXYGEN SATURATION 98.4 % (92.0-98.5); BG OXYHEMOGLOBIN 97.4 % (94.0-97.0); BG PCO2 40.6 mmHg (35.0-45.0); BG PH 7.397 (7.350-7.450); BG PO2 150.6 mmHg (75.0-100.0); BG SAMPLE SITE RIGHT RADIAL; BG TOTAL HEMOGLOBIN 9.8 g/dL (12.0-18.0)
[2018-06-11 08:50] LABS: PLATELET ESTIMATE NORMAL
[2018-06-11] MEDS ORDERED: SODIUM CHLORIDE 0.9% 1,000 ML IV ONE (08:58)
[2018-06-11] MEDS ORDERED: LEVOFLOXACIN 750MG PREMIX 150 ML IV ONE (09:00)
[2018-06-11 17:06] VITALS: BP 94/52
[2018-06-11 17:26] VITALS: BP 94/52
[2018-06-11] MEDS ORDERED: IPRATROPIUM/ALBUTEROL 0.5-3(2.5)MG/3ML NEB HHN PRN (17:30)
[2018-06-11] MEDS ORDERED: ACETAMINOPHEN 325MG TABLET PO PRN ×2 (17:30→23:15)
[2018-06-11] MEDS ORDERED: GUAIFENESIN 200MG/10ML SUGAR FREE UDC PO PRN (17:30)
[2018-06-11] MEDS ORDERED: METHYLPREDNISOLONE SOD SUCC 125 MG/2 ML VIAL IV SCH ×2 (18:00→21:00)
[2018-06-11 20:00] VITALS: BP 128/80
[2018-06-11] MEDS: IPRATROPIUM/ALBUTEROL 0.5-3(2.5)MG/3ML NEB HHN SCH ×2 (20:13→23:51)
[2018-06-11] MEDS ORDERED: MAGNESIUM/ALUMINUM HYDROXIDE/SIMETHICONE 30ML UDC PO PRN (23:15)
[2018-06-11] MEDS ORDERED: CLONIDINE 0.1MG TABLET PO PRN (23:15)
[2018-06-11] MEDS ORDERED: LORAZEPAM 0.5MG TABLET PO PRN (23:15)
[2018-06-11] MEDS ORDERED: ONDANSETRON HCL 4MG/2ML INJ IV PRN (23:15)
[2018-06-11] MEDS ORDERED: DEXT 5%/0.45% NACL 1000ML 1,000 ML IV SCH (23:30)
[2018-06-12] VITALS: BP 97/61
[2018-06-12] MEDS: DEXT 5%/0.45% NACL 1000ML 1,000 ML IV SCH ×3 (00:50→16:31)
[2018-06-12 04:00] VITALS: BP 94/58
[2018-06-12] MEDS: IPRATROPIUM/ALBUTEROL 0.5-3(2.5)MG/3ML NEB HHN SCH ×3 (04:22→23:52)
[2018-06-12] MEDS: METRONIDAZOLE 500MG TABLET PO SCH ×3 (06:16→20:48)
[2018-06-12 06:43] LABS: HEMOGLOBIN. 8.9 g/dL (14.0-18.0); MEAN CORPUSCULAR HEMOGLOBIN 24.7 pg (28.0-32.0); MEAN CORPUSCULAR VOLUME 77.8 fL (80.0-94.0); MEAN PLATELET VOLUME 7.4 fl (7.4-10.4); PLATELET 319 x1000/uL (130-400)
[2018-06-12 07:08] LABS: PHOSPHORUS 4.5 mg/dL (2.5-4.9)
[2018-06-12 08:09] VITALS: BP 95/45
[2018-06-12] MEDS: METHYLPREDNISOLONE SOD SUCC 40 MG/ML VIAL IV SCH ×2 (08:29→20:45)
[2018-06-12 11:52] LABS: PLATELET ESTIMATE NORMAL
[2018-06-12 11:58] LABS: *BARBITURATES SCREEN URINE NEGATIVE (NEGATIVE); *COCAINE SCREEN URINE PRESUMTIVE POSITIVE (NEGATIVE)
[2018-06-12 12:00] LABS: *BENZODIAZEPINES SCREEN URINE NEGATIVE (NEGATIVE)
[2018-06-12 12:01] LABS: *AMPHETAMINES SCREEN URINE NEGATIVE (NEGATIVE)
[2018-06-12 12:03] LABS: CANNABINOID URINE SCREEN NEGATIVE (NEGATIVE); OPIATES URINE SCREEN NEGATIVE (NEGATIVE); PHENCYCLIDINE URINE SCREEN NEGATIVE (NEGATIVE)
[2018-06-12 12:10] VITALS: BP 93/51
[2018-06-12 12:16] LABS: METHADONE URINE SCREEN NEGATIVE (NEGATIVE)
[2018-06-12 16:06] VITALS: BP 102/59
[2018-06-12 17:01] LABS: CLARITY URINE CLEAR (CLEAR); COLOR URINE YELLOW (YELLOW); KETONES URINE NEGATIVE (NEGATIVE); LEUKOCYTE ESTERASE URINE NEGATIVE (NEGATIVE); NITRITE URINE NEGATIVE (NEGATIVE); OCCULT BLOOD URINE NEGATIVE (NEGATIVE); PH URINE 5.5 (4.5-8.0); PROTEIN URINE TRACE (NEGATIVE); SPECIFIC GRAVITY URINE 1.021 (1.005-1.030); UROBILINOGEN URINE 0.2 E.U./dL (0.2-1.0)
[2018-06-12 20:00] VITALS: BP 102/58
[2018-06-13] VITALS (7 sets, daily range): BP systolic 99–129; BP diastolic 60–85
[2018-06-13] MEDS: DEXT 5%/0.45% NACL 1000ML 1,000 ML IV SCH ×3 (00:49→20:55)
[2018-06-13] MEDS: METRONIDAZOLE 500MG TABLET PO SCH ×3 (05:03→22:01)
[2018-06-13] MEDS: IPRATROPIUM/ALBUTEROL 0.5-3(2.5)MG/3ML NEB HHN SCH ×5 (05:54→20:42)
[2018-06-13 07:58] LABS: HEMATOCRIT. 26.2 % (42.0-52.0); HEMOGLOBIN. 8.2 g/dL (14.0-18.0); MEAN CORPUSCULAR HEMOGLOBIN 24.8 pg (28.0-32.0); MEAN CORPUSCULAR VOLUME 78.8 fL (80.0-94.0); MEAN PLATELET VOLUME 7.3 fl (7.4-10.4); PLATELET 301 x1000/uL (130-400); RED BLOOD CELL COUNT 3.32 mill/uL (4.7-6.1); RED CELL DISTRIBUTION WIDTH 16.2 % (11.6-14.6)
[2018-06-13 08:20] LABS: PHOSPHORUS 2.6 mg/dL (2.5-4.9)
[2018-06-13] MEDS: METHYLPREDNISOLONE SOD SUCC 40 MG/ML VIAL IV SCH ×3 (09:35→21:00)
[2018-06-13 11:55] LABS: PLATELET ESTIMATE NORMAL
[2018-06-14 00:41] VITALS: BP 107/73
[2018-06-14] MEDS: IPRATROPIUM/ALBUTEROL 0.5-3(2.5)MG/3ML NEB HHN SCH ×4 (00:42→11:15)
[2018-06-14 04:00] VITALS: BP 120/77
[2018-06-14] MEDS: METRONIDAZOLE 500MG TABLET PO SCH (05:57)
[2018-06-14 07:48] VITALS: BP 104/72
[2018-06-14 07:52] LABS: HEMATOCRIT. 27.5 % (42.0-52.0); HEMOGLOBIN. 8.7 g/dL (14.0-18.0); MEAN CORPUSCULAR VOLUME 79.2 fL (80.0-94.0); MEAN PLATELET VOLUME 7.4 fl (7.4-10.4); PLATELET 319 x1000/uL (130-400); RED BLOOD CELL COUNT 3.47 mill/uL (4.7-6.1); RED CELL DISTRIBUTION WIDTH 16.6 % (11.6-14.6)
[2018-06-14 08:00] VITALS: BP 104/72
[2018-06-14 08:14] LABS: PHOSPHORUS 2.1 mg/dL (2.5-4.9)
[2018-06-14] MEDS: METHYLPREDNISOLONE SOD SUCC 40 MG/ML VIAL IV SCH (09:00)
[2018-06-14] MEDS ORDERED: PREDNISONE 20MG TABLET PO SCH (09:00)
[2018-06-14 12:57] LABS: NUCLEATED RED BLOOD CELLS 1 /100 WBC
[2018-06-14 12:58] LABS: PLATELET ESTIMATE NORMAL
== END 2018-06-14 12:17 | disposition home or self-care (01) | DRG 816 ==
LOC: ER 06:22 → 6WST 09:02 → EDBEDREQTM 09:07 → EDBEDREQ 09:07 → ENRESERV 15:33
PROVIDERS: ADMIT Internal Medicine; ATTEND Internal Medicine
DX: T40.5X1A Poisoning by cocaine, accidental (unintentional), initial encounter (principal); J96.91 Respiratory failure, unspecified with hypoxia; E43 Unspecified severe protein-calorie malnutrition; N17.9 Acute kidney failure, unspecified; I95.9 Hypotension, unspecified; I13.0 Hypertensive heart and chronic kidney disease with heart failure and stage 1 through stage 4 chronic kidney disease, or unspecified chronic kidney disease; J68.0 Bronchitis and pneumonitis due to chemicals, gases, fumes and vapors; R65.10 Systemic inflammatory response syndrome (SIRS) of non-infectious origin without acute organ dysfunction; I50.9 Heart failure, unspecified; E87.1 Hypo-osmolality and hyponatremia; J44.1 Chronic obstructive pulmonary disease with (acute) exacerbation; D64.9 Anemia, unspecified; N18.3 Chronic kidney disease, stage 3 (moderate); D72.829 Elevated white blood cell count, unspecified; F17.210 Nicotine dependence, cigarettes, uncomplicated; H91.90 Unspecified hearing loss, unspecified ear; K40.90 Unilateral inguinal hernia, without obstruction or gangrene, not specified as recurrent; F14.129 Cocaine abuse with intoxication, unspecified; N40.0 Benign prostatic hyperplasia without lower urinary tract symptoms; T38.0X5A Adverse effect of glucocorticoids and synthetic analogues, initial encounter; Y92.89 Other specified places as the place of occurrence of the external cause; Z82.49 Family history of ischemic heart disease and other diseases of the circulatory system; Z87.11 Personal history of peptic ulcer disease; Z90.3 Acquired absence of stomach [part of]; Z91.19 Patient's noncompliance with other medical treatment and regimen; Z88.0 Allergy status to penicillin; Z79.82 Long term (current) use of aspirin; Z79.899 Other long term (current) drug therapy; Z79.2 Long term (current) use of antibiotics; Z68.24 Body mass index [BMI] 24.0-24.9, adult
CPT/HCPCS: 36415; 36600; 71045; 76770; 80048; 80305; 82375; 82805; 83605; 83735; 83880; 83935; 84100; 84153; 84484; 87804; 93005; 96365; 99285; C1893; J1956; J2920; J2930; J3490; J7030; J7512; J7611; J7620; G0103

== ENCOUNTER 2018-06-20 12:39 | Inpatient (IN) | payer MEDICARE, MEDICAID ==
[~2018-06-20] VITALS: Ht 165.1 cm; Wt 65.8 kg
[~2018-06-20 12:39] MED LIST changes: -ASPI-1159 PO; -CARV3.1242 PO; -LEVO500T89 PO; -PRED10TA23 PO
[2018-06-20] MEDS ORDERED: METHYLPREDNISOLONE SOD SUCC 125 MG/2 ML VIAL IV STA (13:00)
[2018-06-20] MEDS ORDERED: IPRATROPIUM BROMIDE (0.02%) 0.5MG/2.5ML NEB HHN STA (13:00)
[2018-06-20] MEDS ORDERED: ALBUTEROL (0.083%) 2.5MG/3ML NEB HHN STA (13:00)
[2018-06-20 14:34] LABS: CLARITY URINE CLEAR (CLEAR); COLOR URINE YELLOW (YELLOW); KETONES URINE NEGATIVE (NEGATIVE); LEUKOCYTE ESTERASE URINE NEGATIVE (NEGATIVE); NITRITE URINE NEGATIVE (NEGATIVE); OCCULT BLOOD URINE NEGATIVE (NEGATIVE); PROTEIN URINE NEGATIVE (NEGATIVE); SPECIFIC GRAVITY URINE 1.011 (1.005-1.030); UROBILINOGEN URINE 0.2 E.U./dL (0.2-1.0)
[2018-06-20 14:35] LABS: BASOPHILS % 0.2 % (0.0-2.0); EOSINOPHILS % 0.2 % (0.0-5.0); HEMATOCRIT. 33.6 % (42.0-52.0); HEMOGLOBIN. 10.3 g/dL (14.0-18.0); LYMPHOCYTES % 35.3 % (20.0-50.0); MEAN CORPUSCULAR HEMOGLOBIN 24.7 pg (28.0-32.0); MEAN CORPUSCULAR VOLUME 80.2 fL (80.0-94.0); MEAN PLATELET VOLUME 7.4 fl (7.4-10.4); MONOCYTES % 5.1 % (2.0-8.0); NEUTROPHILS % 59.2 % (40.0-76.0); PLATELET 354 x1000/uL (130-400); RED BLOOD CELL COUNT 4.19 mill/uL (4.7-6.1); RED CELL DISTRIBUTION WIDTH 17.9 % (11.6-14.6)
[2018-06-20 14:41] LABS: CHLORIDE 98 mEq/L (98-107)
[2018-06-20 14:43] LABS: PARTIAL THROMBOPLASTIN TIME 20.9 sec (23.4-31.0); PROTHROMBIN TIME 10.1 sec (9.1-11.1)
[2018-06-20 14:45] LABS: ETHANOL BLOOD < 10 mg/dL
[2018-06-20 14:54] LABS: *AMPHETAMINES SCREEN URINE NEGATIVE (NEGATIVE); *BARBITURATES SCREEN URINE NEGATIVE (NEGATIVE); *BENZODIAZEPINES SCREEN URINE NEGATIVE (NEGATIVE); *COCAINE SCREEN URINE PRESUMTIVE POSITIVE (NEGATIVE); METHADONE URINE SCREEN NEGATIVE (NEGATIVE)
[2018-06-20 14:55] LABS: CANNABINOID URINE SCREEN NEGATIVE (NEGATIVE); OPIATES URINE SCREEN NEGATIVE (NEGATIVE); PHENCYCLIDINE URINE SCREEN NEGATIVE (NEGATIVE)
[2018-06-20] MEDS ORDERED: ONDANSETRON HCL 4MG/2ML INJ IV PRN (16:45)
[2018-06-20] MEDS ORDERED: GUAIFENESIN 200MG/10ML SUGAR FREE UDC PO PRN (16:45)
[2018-06-20] MEDS ORDERED: LORAZEPAM 2MG/ML CPJ IV PRN (16:45)
[2018-06-20] MEDS ORDERED: ACETAMINOPHEN 325MG TABLET PO PRN (16:45)
[2018-06-20] MEDS ORDERED: DOCUSATE SODIUM 100MG CAPSULE PO PRN (16:45)
[2018-06-20] MEDS ORDERED: MAGNESIUM/ALUMINUM HYDROXIDE/SIMETHICONE 30ML UDC PO PRN (16:45)
[2018-06-20] MEDS ORDERED: CLONIDINE 0.1MG TABLET PO PRN (16:45)
[2018-06-20 20:00] VITALS: BP 114/71
[2018-06-20 21:00] VITALS: BP 114/71
[2018-06-20] MEDS ORDERED: NA PHOS,M-B/NA PHOS,DI-BA ENEMA 118ML PR PRN (21:00)
[2018-06-20] MEDS: METHYLPREDNISOLONE SOD SUCC 125 MG/2 ML VIAL IV SCH (21:47)
[2018-06-20] MEDS ORDERED: LEVOFLOXACIN 500MG PREMIX 100 ML IV SCH (22:00)
[2018-06-21] VITALS: BP 118/76
[2018-06-21] MEDS: METHYLPREDNISOLONE SOD SUCC 125 MG/2 ML VIAL IV SCH ×4 (03:00→21:42)
[2018-06-21 04:00] VITALS: BP 124/75
[2018-06-21 07:22] LABS: BASOPHILS % 0.1 % (0.0-2.0); HEMATOCRIT. 30.2 % (42.0-52.0); HEMOGLOBIN. 9.5 g/dL (14.0-18.0); LYMPHOCYTES % 35.3 % (20.0-50.0); MEAN CORPUSCULAR HEMOGLOBIN 24.8 pg (28.0-32.0); MEAN CORPUSCULAR VOLUME 79.2 fL (80.0-94.0); MEAN PLATELET VOLUME 7.2 fl (7.4-10.4); MONOCYTES % 4.9 % (2.0-8.0); NEUTROPHILS % 59.7 % (40.0-76.0); PLATELET 335 x1000/uL (130-400); RED BLOOD CELL COUNT 3.82 mill/uL (4.7-6.1); RED CELL DISTRIBUTION WIDTH 17.5 % (11.6-14.6)
[2018-06-21 07:40] LABS: CHLORIDE 102 mEq/L (98-107)
[2018-06-21 07:53] LABS: LDL CHOLESTEROL 114 mg/dL (5-100)
[2018-06-21 07:54] LABS: HDL CHOLESTEROL 75 mg/dL (40-59)
[2018-06-21 08:00] VITALS: BP 127/75
[2018-06-21] MEDS: ASPIRIN 81MG EC TABLET PO SCH (10:01)
[2018-06-21] MEDS: ENOXAPARIN 40MG/0.4ML SYR SUBCUT SCH (10:01)
[2018-06-21] MEDS: IPRATROPIUM/ALBUTEROL 0.5-3(2.5)MG/3ML NEB INH PRN (10:19)
[2018-06-21 12:00] VITALS: BP 144/85
[2018-06-21] MEDS: FLUTICASONE PROPIONATE 50MCG/SPRAY BOTTLE BOTHNSTRLS SCH ×2 (13:15→21:42)
[2018-06-21 16:00] VITALS: BP 103/61
[2018-06-21] MEDS: HYDROCODONE/ACETAMINOPHEN 5/325MG TABLET PO PRN (18:52)
[2018-06-21 20:00] VITALS: BP 108/74
[2018-06-22] VITALS: BP 111/71
[2018-06-22] MEDS: LEVOFLOXACIN 250MG PREMIX 50 ML IV SCH ×2 (01:14→23:06)
[2018-06-22] MEDS: METHYLPREDNISOLONE SOD SUCC 125 MG/2 ML VIAL IV SCH ×2 (03:00→09:21)
[2018-06-22 04:00] VITALS: BP 110/66
[2018-06-22] MEDS: IPRATROPIUM/ALBUTEROL 0.5-3(2.5)MG/3ML NEB INH PRN ×4 (04:41→21:28)
[2018-06-22 07:49] LABS: BASOPHILS % 0.3 % (0.0-2.0); HEMATOCRIT. 32.9 % (42.0-52.0); LYMPHOCYTES % 30.6 % (20.0-50.0); MEAN CORPUSCULAR HEMOGLOBIN 25.1 pg (28.0-32.0); MEAN CORPUSCULAR VOLUME 82.5 fL (80.0-94.0); MEAN PLATELET VOLUME 7.7 fl (7.4-10.4); MONOCYTES % 4.5 % (2.0-8.0); NEUTROPHILS % 64.6 % (40.0-76.0); PLATELET 293 x1000/uL (130-400); RED BLOOD CELL COUNT 3.99 mill/uL (4.7-6.1); RED CELL DISTRIBUTION WIDTH 18.3 % (11.6-14.6)
[2018-06-22 08:00] VITALS: BP 108/66
[2018-06-22 08:40] LABS: PHOSPHORUS 3.8 mg/dL (2.5-4.9)
[2018-06-22] MEDS: ENOXAPARIN 40MG/0.4ML SYR SUBCUT SCH (09:21)
[2018-06-22] MEDS: ASPIRIN 81MG EC TABLET PO SCH (09:21)
[2018-06-22] MEDS: HYDROCODONE/ACETAMINOPHEN 5/325MG TABLET PO PRN (09:29)
[2018-06-22] MEDS: FLUTICASONE PROPIONATE 50MCG/SPRAY BOTTLE BOTHNSTRLS SCH ×2 (09:47→21:13)
[2018-06-22 12:00] VITALS: BP 107/66
[2018-06-22 16:00] VITALS: BP 100/61
[2018-06-22] MEDS: PREDNISONE 20MG TABLET PO SCH (18:06)
[2018-06-22 20:00] VITALS: BP 116/76
[2018-06-22] MEDS: MUPIROCIN 2% OINT 22GM NS SCH (21:00)
[2018-06-22] MEDS: BUDESONIDE 0.5MG/2ML NEB HHN SCH (21:27)
[2018-06-23] VITALS: BP 97/73
[2018-06-23] MEDS: IPRATROPIUM/ALBUTEROL 0.5-3(2.5)MG/3ML NEB INH PRN ×4 (01:51→20:55)
[2018-06-23] MEDS: HYDROCODONE/ACETAMINOPHEN 5/325MG TABLET PO PRN (02:09)
[2018-06-23 04:00] VITALS: BP 133/83
[2018-06-23] MEDS: PREDNISONE 20MG TABLET PO SCH ×2 (06:18→18:18)
[2018-06-23 08:00] VITALS: BP_SYST 120; BP_SYST 16; BP_DIAS 85; BP_DIAS 99
[2018-06-23] MEDS: BUDESONIDE 0.5MG/2ML NEB HHN SCH ×2 (09:39→20:55)
[2018-06-23] MEDS: ASPIRIN 81MG EC TABLET PO SCH (10:02)
[2018-06-23] MEDS: ENOXAPARIN 40MG/0.4ML SYR SUBCUT SCH (10:02)
[2018-06-23] MEDS: MUPIROCIN 2% OINT 22GM NS SCH ×2 (10:03→21:19)
[2018-06-23] MEDS: FLUTICASONE PROPIONATE 50MCG/SPRAY BOTTLE BOTHNSTRLS SCH ×2 (10:04→21:19)
[2018-06-23 11:15] LABS: HEMATOCRIT. 31.6 % (42.0-52.0); HEMOGLOBIN. 9.8 g/dL (14.0-18.0); LYMPHOCYTES % 28.7 % (20.0-50.0); MEAN CORPUSCULAR HEMOGLOBIN 24.9 pg (28.0-32.0); MEAN CORPUSCULAR VOLUME 80.3 fL (80.0-94.0); MEAN PLATELET VOLUME 7.5 fl (7.4-10.4); MONOCYTES % 4.8 % (2.0-8.0); NEUTROPHILS % 66.5 % (40.0-76.0); PLATELET 332 x1000/uL (130-400); RED BLOOD CELL COUNT 3.93 mill/uL (4.7-6.1); RED CELL DISTRIBUTION WIDTH 17.9 % (11.6-14.6)
[2018-06-23 12:37] VITALS: BP_SYST 120; BP_SYST 146; BP_DIAS 85; BP_DIAS 99
[2018-06-23 16:00] VITALS: BP 109/72
[2018-06-23] MEDS: HYDROMORPHONE HCL/PF 2MG/ML CPJ IV PRN (16:41)
[2018-06-23 20:00] VITALS: BP 121/80
[2018-06-23] MEDS: LEVOFLOXACIN 250MG PREMIX 50 ML IV SCH (23:55)
[2018-06-24] VITALS: BP 112/67
[2018-06-24 04:00] VITALS: BP 113/77
[2018-06-24] MEDS: HYDROMORPHONE HCL/PF 2MG/ML CPJ IV PRN ×2 (06:04→16:37)
[2018-06-24 07:31] LABS: BASOPHILS % 0.3 % (0.0-2.0); HEMATOCRIT. 31.5 % (42.0-52.0); HEMOGLOBIN. 9.8 g/dL (14.0-18.0); MEAN CORPUSCULAR HEMOGLOBIN 25.1 pg (28.0-32.0); MEAN CORPUSCULAR VOLUME 80.5 fL (80.0-94.0); MEAN PLATELET VOLUME 7.6 fl (7.4-10.4); MONOCYTES % 5.5 % (2.0-8.0); NEUTROPHILS % 65.2 % (40.0-76.0); PLATELET 294 x1000/uL (130-400); RED BLOOD CELL COUNT 3.92 mill/uL (4.7-6.1); RED CELL DISTRIBUTION WIDTH 17.9 % (11.6-14.6)
[2018-06-24 08:00] VITALS: BP 118/70
[2018-06-24] MEDS: ASPIRIN 81MG EC TABLET PO SCH (08:45)
[2018-06-24] MEDS: PREDNISONE 20MG TABLET PO SCH ×2 (08:45→16:32)
[2018-06-24] MEDS: MUPIROCIN 2% OINT 22GM NS SCH ×2 (08:46→21:43)
[2018-06-24] MEDS: ENOXAPARIN 40MG/0.4ML SYR SUBCUT SCH (08:47)
[2018-06-24] MEDS: FLUTICASONE PROPIONATE 50MCG/SPRAY BOTTLE BOTHNSTRLS SCH (08:47)
[2018-06-24] MEDS: IPRATROPIUM/ALBUTEROL 0.5-3(2.5)MG/3ML NEB INH PRN ×2 (09:00→19:54)
[2018-06-24] MEDS: BUDESONIDE 0.5MG/2ML NEB HHN SCH ×2 (09:00→19:54)
[2018-06-24 12:00] VITALS: BP 135/69
[2018-06-24 16:00] VITALS: BP 103/62
[2018-06-24 20:50] VITALS: BP 110/66
[2018-06-24] MEDS ORDERED: LEVOFLOXACIN 500MG PREMIX 100 ML IV SCH (23:00)
[2018-06-24] MEDS: HYDROCODONE/ACETAMINOPHEN 5/325MG TABLET PO PRN (23:55)
[2018-06-25] VITALS: BP 120/59
[2018-06-25 04:00] VITALS: BP 147/80
[2018-06-25] MEDS: PREDNISONE 20MG TABLET PO SCH ×2 (06:52→17:15)
[2018-06-25 07:20] LABS: HEMATOCRIT. 29.9 % (42.0-52.0); HEMOGLOBIN. 9.3 g/dL (14.0-18.0); MEAN CORPUSCULAR VOLUME 80.7 fL (80.0-94.0); MEAN PLATELET VOLUME 7.3 fl (7.4-10.4); PLATELET 304 x1000/uL (130-400); RED CELL DISTRIBUTION WIDTH 17.9 % (11.6-14.6)
[2018-06-25 08:00] VITALS: BP 109/74
[2018-06-25] MEDS: ENOXAPARIN 40MG/0.4ML SYR SUBCUT SCH (08:57)
[2018-06-25] MEDS: MUPIROCIN 2% OINT 22GM NS SCH ×2 (08:58→21:00)
[2018-06-25] MEDS: ASPIRIN 81MG EC TABLET PO SCH (08:58)
[2018-06-25] MEDS: IPRATROPIUM/ALBUTEROL 0.5-3(2.5)MG/3ML NEB INH PRN ×2 (09:27→18:05)
[2018-06-25] MEDS: BUDESONIDE 0.5MG/2ML NEB HHN SCH (09:28)
[2018-06-25 10:05] LABS: PLATELET ESTIMATE NORMAL
[2018-06-25 12:00] VITALS: BP 115/69
[2018-06-25 16:00] VITALS: BP 103/64
[2018-06-25 20:00] VITALS: BP 115/79
[2018-06-25] MEDS: HYDROMORPHONE HCL/PF 2MG/ML CPJ IV PRN (21:14)
[2018-06-26] VITALS: BP 115/74
[2018-06-26 04:00] VITALS: BP 118/70
[2018-06-26] MEDS: PREDNISONE 20MG TABLET PO SCH (06:15)
[2018-06-26] MEDS: HYDROMORPHONE HCL/PF 2MG/ML CPJ IV PRN ×3 (06:16→22:54)
[2018-06-26 08:00] VITALS: BP 124/87
[2018-06-26] MEDS: ASPIRIN 81MG EC TABLET PO SCH (09:40)
[2018-06-26] MEDS: ENOXAPARIN 40MG/0.4ML SYR SUBCUT SCH (09:40)
[2018-06-26] MEDS: MUPIROCIN 2% OINT 22GM NS SCH ×2 (11:36→21:00)
[2018-06-26 12:00] VITALS: BP 136/79
[2018-06-26 16:00] VITALS: BP 115/64
[2018-06-26] MEDS: IPRATROPIUM/ALBUTEROL 0.5-3(2.5)MG/3ML NEB INH PRN (18:36)
[2018-06-26 20:00] VITALS: BP 118/70
[2018-06-26] MEDS: DIPHENHYDRAMINE 50MG/ML VIAL IV PRN (22:54)
[2018-06-27] VITALS: BP 128/76
[2018-06-27 04:00] VITALS: BP 133/72
[2018-06-27 08:00] VITALS: BP 121/85
[2018-06-27] MEDS: MUPIROCIN 2% OINT 22GM NS SCH ×2 (09:00→20:53)
[2018-06-27] MEDS: ENOXAPARIN 40MG/0.4ML SYR SUBCUT SCH (09:55)
[2018-06-27] MEDS: HYDROMORPHONE HCL/PF 2MG/ML CPJ IV PRN ×2 (09:55→19:58)
[2018-06-27] MEDS: PREDNISONE 20MG TABLET PO SCH (09:55)
[2018-06-27] MEDS: ASPIRIN 81MG EC TABLET PO SCH (09:55)
[2018-06-27 12:00] VITALS: BP 110/61
[2018-06-27 16:00] VITALS: BP 117/63
[2018-06-27] MEDS: IPRATROPIUM/ALBUTEROL 0.5-3(2.5)MG/3ML NEB INH PRN (18:12)
[2018-06-27] MEDS: DIPHENHYDRAMINE 50MG/ML VIAL IV PRN (19:57)
[2018-06-27 20:00] VITALS: BP 120/84
[2018-06-28] VITALS: BP 137/80
[2018-06-28 04:00] VITALS: BP 116/75
[2018-06-28] MEDS: HYDROMORPHONE HCL/PF 2MG/ML CPJ IV PRN ×2 (04:11→19:43)
[2018-06-28 08:00] VITALS: BP 113/86
[2018-06-28] MEDS: ENOXAPARIN 40MG/0.4ML SYR SUBCUT SCH (08:26)
[2018-06-28] MEDS: ASPIRIN 81MG EC TABLET PO SCH (08:26)
[2018-06-28] MEDS: PREDNISONE 20MG TABLET PO SCH (08:26)
[2018-06-28 12:00] VITALS: BP 119/70
[2018-06-28 12:48] LABS: HEMATOCRIT. 31.6 % (42.0-52.0); HEMOGLOBIN. 9.9 g/dL (14.0-18.0); MEAN CORPUSCULAR HEMOGLOBIN 25.1 pg (28.0-32.0); MEAN PLATELET VOLUME 7.2 fl (7.4-10.4); PLATELET 259 x1000/uL (130-400); RED BLOOD CELL COUNT 3.95 mill/uL (4.7-6.1); RED CELL DISTRIBUTION WIDTH 18.1 % (11.6-14.6)
[2018-06-28 13:21] LABS: PLATELET ESTIMATE NORMAL
[2018-06-28 16:37] LABS: CLARITY URINE CLEAR (CLEAR); COLOR URINE YELLOW (YELLOW); KETONES URINE NEGATIVE (NEGATIVE); LEUKOCYTE ESTERASE URINE NEGATIVE (NEGATIVE); NITRITE URINE NEGATIVE (NEGATIVE); OCCULT BLOOD URINE NEGATIVE (NEGATIVE); PH URINE 5.5 (4.5-8.0); PROTEIN URINE TRACE (NEGATIVE); UROBILINOGEN URINE 0.2 E.U./dL (0.2-1.0)
[2018-06-28] MEDS: IPRATROPIUM/ALBUTEROL 0.5-3(2.5)MG/3ML NEB INH PRN (18:46)
[2018-06-28] MEDS: DIPHENHYDRAMINE 50MG/ML VIAL IV PRN (19:43)
[2018-06-28 20:00] VITALS: BP 111/79
[2018-06-29] VITALS: BP 123/81
[2018-06-29 04:00] VITALS: BP 110/67
[2018-06-29] MEDS: IPRATROPIUM/ALBUTEROL 0.5-3(2.5)MG/3ML NEB INH PRN (06:45)
[2018-06-29 07:24] LABS: HEMATOCRIT. 29.6 % (42.0-52.0); HEMOGLOBIN. 9.2 g/dL (14.0-18.0); MEAN CORPUSCULAR HEMOGLOBIN 25.3 pg (28.0-32.0); MEAN CORPUSCULAR VOLUME 81.5 fL (80.0-94.0); MEAN PLATELET VOLUME 7.4 fl (7.4-10.4); PLATELET 239 x1000/uL (130-400); RED BLOOD CELL COUNT 3.63 mill/uL (4.7-6.1)
[2018-06-29 08:00] VITALS: BP 114/69
[2018-06-29] MEDS: ENOXAPARIN 40MG/0.4ML SYR SUBCUT SCH (08:33)
[2018-06-29] MEDS: PREDNISONE 20MG TABLET PO SCH (08:33)
[2018-06-29] MEDS: ASPIRIN 81MG EC TABLET PO SCH (08:33)
[2018-06-29] MEDS: HYDROMORPHONE HCL/PF 2MG/ML CPJ IV PRN ×2 (08:34→13:59)
[2018-06-29 10:03] LABS: PLATELET ESTIMATE NORMAL
[2018-06-29 12:00] VITALS: BP 116/68
[2018-06-29 16:00] VITALS: BP 115/80
[2018-06-29 20:00] VITALS: BP 107/67
[2018-06-30] VITALS: BP 110/62
[2018-06-30] MEDS: HYDROMORPHONE HCL/PF 2MG/ML CPJ IV PRN ×2 (00:09→15:15)
[2018-06-30 04:00] VITALS: BP 119/83
[2018-06-30 08:00] VITALS: BP 110/71
[2018-06-30] MEDS: ASPIRIN 81MG EC TABLET PO SCH (08:39)
[2018-06-30] MEDS: ENOXAPARIN 40MG/0.4ML SYR SUBCUT SCH (08:40)
[2018-06-30 12:00] VITALS: BP 101/66
[2018-06-30] MEDS: IPRATROPIUM/ALBUTEROL 0.5-3(2.5)MG/3ML NEB INH PRN (12:13)
[2018-06-30 15:59] VITALS: BP 111/75
[2018-06-30 20:00] VITALS: BP 96/63
[2018-07-01] VITALS: BP 107/71
[2018-07-01] MEDS: IPRATROPIUM/ALBUTEROL 0.5-3(2.5)MG/3ML NEB INH PRN ×2 (03:32→19:13)
[2018-07-01 04:00] VITALS: BP 93/59
[2018-07-01 08:00] VITALS: BP 136/70
[2018-07-01] MEDS: ASPIRIN 81MG EC TABLET PO SCH ×2 (09:00→09:49)
[2018-07-01] MEDS: ENOXAPARIN 40MG/0.4ML SYR SUBCUT SCH (09:49)
[2018-07-01] MEDS: HYDROMORPHONE HCL/PF 2MG/ML CPJ IV PRN ×2 (09:49→23:06)
[2018-07-01 12:00] VITALS: BP 124/75
[2018-07-01 16:00] VITALS: BP 111/77
[2018-07-01 20:00] VITALS: BP 123/73
[2018-07-02] VITALS: BP 111/69
[2018-07-02 04:00] VITALS: BP 112/73
[2018-07-02] MEDS: HYDROMORPHONE HCL/PF 2MG/ML CPJ IV PRN ×3 (04:17→15:47)
[2018-07-02 07:03] LABS: HEMATOCRIT. 30.9 % (42.0-52.0); HEMOGLOBIN. 9.6 g/dL (14.0-18.0); MEAN CORPUSCULAR HEMOGLOBIN 24.9 pg (28.0-32.0); MEAN CORPUSCULAR VOLUME 80.4 fL (80.0-94.0); MEAN PLATELET VOLUME 7.3 fl (7.4-10.4); PLATELET 219 x1000/uL (130-400); RED BLOOD CELL COUNT 3.84 mill/uL (4.7-6.1); RED CELL DISTRIBUTION WIDTH 17.8 % (11.6-14.6)
[2018-07-02 08:00] VITALS: BP 118/82
[2018-07-02] MEDS: ASPIRIN 81MG EC TABLET PO SCH (09:36)
[2018-07-02] MEDS: ENOXAPARIN 40MG/0.4ML SYR SUBCUT SCH (09:37)
[2018-07-02 10:03] LABS: PLATELET ESTIMATE NORMAL
[2018-07-02 12:00] VITALS: BP 100/69
[2018-07-02] MEDS: IPRATROPIUM/ALBUTEROL 0.5-3(2.5)MG/3ML NEB INH PRN (15:40)
[2018-07-02 15:56] VITALS: BP 111/75
[2018-07-02 16:00] VITALS: BP 111/75
== END 2018-07-02 17:10 | DRG 816 ==
LOC: ER 12:39 → 5WST 15:40 → EDBEDREQ 15:47 → ENRESERV 18:45 → 6EST 06-26 12:56
PROVIDERS: ADMIT Internal Medicine; ATTEND Internal Medicine
DX: T40.5X1A Poisoning by cocaine, accidental (unintentional), initial encounter (principal); N17.0 Acute kidney failure with tubular necrosis; J96.00 Acute respiratory failure, unspecified whether with hypoxia or hypercapnia; E46 Unspecified protein-calorie malnutrition; I13.0 Hypertensive heart and chronic kidney disease with heart failure and stage 1 through stage 4 chronic kidney disease, or unspecified chronic kidney disease; R65.10 Systemic inflammatory response syndrome (SIRS) of non-infectious origin without acute organ dysfunction; N28.1 Cyst of kidney, acquired; I50.9 Heart failure, unspecified; J68.0 Bronchitis and pneumonitis due to chemicals, gases, fumes and vapors; J44.1 Chronic obstructive pulmonary disease with (acute) exacerbation; D64.9 Anemia, unspecified; N18.9 Chronic kidney disease, unspecified; F14.10 Cocaine abuse, uncomplicated; E78.5 Hyperlipidemia, unspecified; H26.9 Unspecified cataract; F29 Unspecified psychosis not due to a substance or known physiological condition; I25.10 Atherosclerotic heart disease of native coronary artery without angina pectoris; N40.0 Benign prostatic hyperplasia without lower urinary tract symptoms; T38.0X5A Adverse effect of glucocorticoids and synthetic analogues, initial encounter; Z59.0 Homelessness; Z79.51 Long term (current) use of inhaled steroids; Z87.01 Personal history of pneumonia (recurrent); Z87.891 Personal history of nicotine dependence; Z91.19 Patient's noncompliance with other medical treatment and regimen; Z88.0 Allergy status to penicillin; Z79.82 Long term (current) use of aspirin; Z87.11 Personal history of peptic ulcer disease; Y92.89 Other specified places as the place of occurrence of the external cause; Z68.24 Body mass index [BMI] 24.0-24.9, adult
CPT/HCPCS: 36415; 71045; 80048; 80061; 80305; 83735; 83880; 84100; 84439; 84443; 84484; 93005; 94640; 96365; 96366; 96372; 96375; 97116; 97162; 97530; 99285; G0482; J1170; J1200; J1650; J1956; J2930; J7050; J7512; J7611; J7620; J7626

== ENCOUNTER 2018-07-14 21:27 | Inpatient (IN) | payer MEDICARE, MEDICAID ==
[~2018-07-14] VITALS: Ht 165.1 cm; Wt 65.3 kg
[~2018-07-14 21:27] MED LIST changes: -P20 PO
[2018-07-14] MEDS ORDERED: METHYLPREDNISOLONE SOD SUCC 125 MG/2 ML VIAL IV STA (22:05)
[2018-07-14] MEDS ORDERED: ASPIRIN 81MG TABLET PO ONE (22:15)
[2018-07-14] MEDS ORDERED: LEVOFLOXACIN 750MG PREMIX 150 ML IV ONE (22:15)
[2018-07-14] MEDS ORDERED: IPRATROPIUM/ALBUTEROL 0.5-3(2.5)MG/3ML NEB HHN ONE (22:15)
[2018-07-14] MEDS ORDERED: MAGNESIUM 2 G PREMIX 50 ML IV ONE (22:15)
[2018-07-14 22:57] LABS: BASOPHILS % 0.4 % (0.0-2.0); EOSINOPHILS % 2.2 % (0.0-5.0); HEMATOCRIT. 31.5 % (42.0-52.0); HEMOGLOBIN. 9.9 g/dL (14.0-18.0); LYMPHOCYTES % 35.5 % (20.0-50.0); MEAN CORPUSCULAR HEMOGLOBIN 24.8 pg (28.0-32.0); MEAN CORPUSCULAR VOLUME 79.3 fL (80.0-94.0); MEAN PLATELET VOLUME 6.8 fl (7.4-10.4); MONOCYTES % 11.1 % (2.0-8.0); NEUTROPHILS % 50.8 % (40.0-76.0); PLATELET 469 x1000/uL (130-400); RED BLOOD CELL COUNT 3.98 mill/uL (4.7-6.1); RED CELL DISTRIBUTION WIDTH 17.6 % (11.6-14.6)
[2018-07-14 22:58] LABS: CHLORIDE 105 mEq/L (98-107)
[2018-07-14 23:01] LABS: PARTIAL THROMBOPLASTIN TIME 24.4 sec (23.4-31.0); PROTHROMBIN TIME 10.4 sec (9.1-11.1)
[2018-07-14 23:03] LABS: ETHANOL BLOOD < 10 mg/dL
[2018-07-15] MEDS ORDERED: IPRATROPIUM/ALBUTEROL 0.5-3(2.5)MG/3ML NEB INH PRN (03:30)
[2018-07-15] MEDS ORDERED: MAGNESIUM/ALUMINUM HYDROXIDE/SIMETHICONE 30ML UDC PO PRN (03:30)
[2018-07-15] MEDS ORDERED: CLONIDINE 0.1MG TABLET PO PRN (03:30)
[2018-07-15 12:00] VITALS: BP 124/70
[2018-07-15] MEDS: TAMSULOSIN HCL 0.4MG SR CAPSULE PO SCH (12:00)
[2018-07-15 16:00] VITALS: BP 126/69
[2018-07-15 16:47] VITALS: BP 124/70
[2018-07-15] MEDS: KETOROLAC 30MG/ML VIAL IV PRN (17:36)
[2018-07-15] MEDS: METHYLPREDNISOLONE SOD SUCC 125 MG/2 ML VIAL IV SCH ×2 (17:38→21:18)
[2018-07-15 20:00] VITALS: BP 130/82
[2018-07-15] MEDS: IPRATROPIUM/ALBUTEROL 0.5-3(2.5)MG/3ML NEB HHN SCH (20:38)
[2018-07-15] MEDS: SODIUM CHLORIDE 0.9% INJ 3ML FLUSH IVF SCH (21:18)
[2018-07-16] VITALS: BP 126/82
[2018-07-16] MEDS: KETOROLAC 30MG/ML VIAL IV PRN ×4 (02:39→23:02)
[2018-07-16 04:00] VITALS: BP 98/61
[2018-07-16] MEDS: IPRATROPIUM/ALBUTEROL 0.5-3(2.5)MG/3ML NEB HHN SCH ×6 (04:29→20:44)
[2018-07-16] MEDS: METHYLPREDNISOLONE SOD SUCC 125 MG/2 ML VIAL IV SCH ×3 (05:16→21:38)
[2018-07-16] MEDS: SODIUM CHLORIDE 0.9% INJ 3ML FLUSH IVF SCH ×3 (05:16→21:38)
[2018-07-16] MEDS: ACETAMINOPHEN 325MG TABLET PO PRN (05:21)
[2018-07-16] MEDS: TAMSULOSIN HCL 0.4MG SR CAPSULE PO SCH (07:55)
[2018-07-16 08:00] VITALS: BP 137/75
[2018-07-16 12:00] VITALS: BP 109/66
[2018-07-16] MEDS ORDERED: IBUPROFEN 600MG TABLET PO PRN (15:25)
[2018-07-16 16:00] VITALS: BP 137/77
[2018-07-16 20:00] VITALS: BP 138/80
[2018-07-16 22:20] LABS: *AMPHETAMINES SCREEN URINE NEGATIVE (NEGATIVE); *BARBITURATES SCREEN URINE NEGATIVE (NEGATIVE); *BENZODIAZEPINES SCREEN URINE NEGATIVE (NEGATIVE); *COCAINE SCREEN URINE PRESUMTIVE POSITIVE (NEGATIVE); CANNABINOID URINE SCREEN NEGATIVE (NEGATIVE); METHADONE URINE SCREEN NEGATIVE (NEGATIVE); OPIATES URINE SCREEN NEGATIVE (NEGATIVE); PHENCYCLIDINE URINE SCREEN NEGATIVE (NEGATIVE)
[2018-07-17] VITALS: BP 129/79
[2018-07-17] MEDS: IPRATROPIUM/ALBUTEROL 0.5-3(2.5)MG/3ML NEB HHN SCH ×6 (00:32→21:08)
[2018-07-17 04:00] VITALS: BP 136/80
[2018-07-17] MEDS: METHYLPREDNISOLONE SOD SUCC 125 MG/2 ML VIAL IV SCH ×3 (04:58→21:01)
[2018-07-17] MEDS: SODIUM CHLORIDE 0.9% INJ 3ML FLUSH IVF SCH ×3 (04:59→21:01)
[2018-07-17] MEDS: KETOROLAC 30MG/ML VIAL IV PRN ×4 (05:00→23:19)
[2018-07-17 08:00] VITALS: BP 118/72
[2018-07-17] MEDS: TAMSULOSIN HCL 0.4MG SR CAPSULE PO SCH (08:39)
[2018-07-17 12:00] VITALS: BP 126/82
[2018-07-17 16:00] VITALS: BP 121/81
[2018-07-17 20:00] VITALS: BP 125/83
[2018-07-18] VITALS: BP 111/66
[2018-07-18 04:00] VITALS: BP 131/78
[2018-07-18] MEDS: IPRATROPIUM/ALBUTEROL 0.5-3(2.5)MG/3ML NEB HHN SCH ×5 (04:00→20:48)
[2018-07-18] MEDS: METHYLPREDNISOLONE SOD SUCC 125 MG/2 ML VIAL IV SCH ×3 (05:54→22:03)
[2018-07-18] MEDS: KETOROLAC 30MG/ML VIAL IV PRN ×3 (05:55→22:15)
[2018-07-18] MEDS: SODIUM CHLORIDE 0.9% INJ 3ML FLUSH IVF SCH ×3 (05:55→22:03)
[2018-07-18 08:00] VITALS: BP 120/76
[2018-07-18] MEDS: TAMSULOSIN HCL 0.4MG SR CAPSULE PO SCH (10:22)
[2018-07-18 12:00] VITALS: BP 135/82
[2018-07-18 14:57] LABS: BG BASE EXCESS 1.5 mmol/L (-2.0-2.0); BG CARBOXYHEMOGLOBIN 0.5 % (0.5-1.5); BG DEOXYHEMOGLOBIN 5.1 % (0.0-5.0); BG FRACTION INSPIRED OXYGEN 21; BG HCO3 ACT 25.8 mmol/L (22.0-26.0); BG METHEMOGLOBIN 0.1 % (0.0-1.5); BG OXYGEN SATURATION 94.9 % (92.0-98.5); BG OXYHEMOGLOBIN 94.3 % (94.0-97.0); BG PCO2 39.4 mmHg (35.0-45.0); BG PH 7.434 (7.350-7.450); BG PO2 78.8 mmHg (75.0-100.0); BG SAMPLE SITE LEFT RADIAL; BG TOTAL HEMOGLOBIN 8.9 g/dL (12.0-18.0); BG VENT MODE ROOM AIR
[2018-07-18 16:00] VITALS: BP 128/80
[2018-07-18 20:00] VITALS: BP 122/68
[2018-07-18 20:31] LABS: CHLORIDE 103 mEq/L (98-107)
[2018-07-18] MEDS ORDERED: DEXTROSE 50% WATER 50ML SYRINGE IV PRN (21:15)
[2018-07-18] MEDS: SODIUM CHLORIDE 0.9% 1,000 ML IV SCH (22:03)
[2018-07-18] MEDS: BLOOD SUGAR DIAGNOSTIC STRIP TEST SCH (22:03)
[2018-07-18] MEDS: INSULIN GLARGINE UD 100 UNITS/ML SYR SUBCUT SCH (22:04)
[2018-07-19] VITALS: BP 167/85
[2018-07-19] MEDS: ONDANSETRON HCL 4MG/2ML INJ IV PRN ×2 (00:36→09:01)
[2018-07-19] MEDS: IPRATROPIUM/ALBUTEROL 0.5-3(2.5)MG/3ML NEB HHN SCH ×5 (01:40→20:00)
[2018-07-19 04:00] VITALS: BP 116/65
[2018-07-19] MEDS: METHYLPREDNISOLONE SOD SUCC 125 MG/2 ML VIAL IV SCH ×2 (06:23→14:54)
[2018-07-19] MEDS: SODIUM CHLORIDE 0.9% INJ 3ML FLUSH IVF SCH ×3 (06:23→21:56)
[2018-07-19] MEDS: BLOOD SUGAR DIAGNOSTIC STRIP TEST SCH ×4 (06:23→21:56)
[2018-07-19] MEDS: KETOROLAC 30MG/ML VIAL IV PRN ×2 (06:24→21:53)
[2018-07-19] MEDS: INSULIN LISPRO 100 UNITS/ML SUBCUT SCH ×4 (06:30→21:56)
[2018-07-19 08:00] VITALS: BP 118/75
[2018-07-19] MEDS: TAMSULOSIN HCL 0.4MG SR CAPSULE PO SCH (09:00)
[2018-07-19] MEDS: SODIUM CHLORIDE 0.9% 1,000 ML IV SCH (09:05)
[2018-07-19 11:41] LABS: PHOSPHORUS 4.1 mg/dL (2.5-4.9)
[2018-07-19 12:00] VITALS: BP_SYST 123; BP_SYST 134; BP_DIAS 67; BP_DIAS 71
[2018-07-19] MEDS: PREDNISONE 20MG TABLET PO SCH (16:23)
[2018-07-19] MEDS: DEXT 5%/0.45% NACL 1000ML 1,000 ML IV SCH (16:24)
[2018-07-19] MEDS ORDERED: SODIUM POLYSTYRENE SULFONATE 15 G/60 ML BOT PO NR (17:00)
[2018-07-19 20:00] VITALS: BP 111/67
[2018-07-19] MEDS: INSULIN GLARGINE UD 100 UNITS/ML SYR SUBCUT SCH (21:56)
[2018-07-20] VITALS: BP 126/78
[2018-07-20] MEDS: IPRATROPIUM/ALBUTEROL 0.5-3(2.5)MG/3ML NEB HHN SCH ×6 (00:10→20:15)
[2018-07-20] MEDS: GUAIFENESIN 200MG/10ML SUGAR FREE UDC PO PRN ×2 (00:48→17:00)
[2018-07-20] MEDS: DEXT 5%/0.45% NACL 1000ML 1,000 ML IV SCH ×3 (03:46→22:00)
[2018-07-20 04:00] VITALS: BP 119/74
[2018-07-20] MEDS: SODIUM CHLORIDE 0.9% INJ 3ML FLUSH IVF SCH ×3 (06:12→23:26)
[2018-07-20] MEDS: KETOROLAC 30MG/ML VIAL IV PRN ×3 (06:12→21:39)
[2018-07-20] MEDS: BLOOD SUGAR DIAGNOSTIC STRIP TEST SCH ×4 (07:20→21:44)
[2018-07-20] MEDS: TAMSULOSIN HCL 0.4MG SR CAPSULE PO SCH (09:19)
[2018-07-20] MEDS: INSULIN LISPRO 100 UNITS/ML SUBCUT SCH ×4 (09:19→21:48)
[2018-07-20] MEDS: PREDNISONE 20MG TABLET PO SCH (09:19)
[2018-07-20 12:00] VITALS: BP 117/64
[2018-07-20 16:00] VITALS: BP 114/69
[2018-07-20] MEDS: ACETAMINOPHEN 325MG TABLET PO PRN (17:01)
[2018-07-20 20:00] VITALS: BP 109/67
[2018-07-20] MEDS: INSULIN GLARGINE UD 100 UNITS/ML SYR SUBCUT SCH (22:59)
[2018-07-21] VITALS: BP 107/62
[2018-07-21] MEDS: IPRATROPIUM/ALBUTEROL 0.5-3(2.5)MG/3ML NEB HHN SCH ×6 (00:06→20:49)
[2018-07-21] MEDS: IBUPROFEN 600MG TABLET PO PRN ×2 (02:42→22:47)
[2018-07-21] MEDS: KETOROLAC 30MG/ML VIAL IV PRN ×2 (03:53→13:21)
[2018-07-21 04:00] VITALS: BP 102/64
[2018-07-21] MEDS: SODIUM CHLORIDE 0.9% INJ 3ML FLUSH IVF SCH (05:51)
[2018-07-21] MEDS: BLOOD SUGAR DIAGNOSTIC STRIP TEST SCH ×4 (06:38→20:13)
[2018-07-21] MEDS: INSULIN LISPRO 100 UNITS/ML SUBCUT SCH ×4 (07:50→20:21)
[2018-07-21 08:00] VITALS: BP 112/76
[2018-07-21] MEDS: DEXT 5%/0.45% NACL 1000ML 1,000 ML IV SCH (08:00)
[2018-07-21] MEDS: TAMSULOSIN HCL 0.4MG SR CAPSULE PO SCH (08:56)
[2018-07-21] MEDS: PREDNISONE 20MG TABLET PO SCH (08:56)
[2018-07-21 12:00] VITALS: BP 120/65
[2018-07-21 20:00] VITALS: BP 96/64
[2018-07-21] MEDS: INSULIN GLARGINE UD 100 UNITS/ML SYR SUBCUT SCH (21:45)
[2018-07-22] MEDS: IPRATROPIUM/ALBUTEROL 0.5-3(2.5)MG/3ML NEB HHN SCH ×7 (01:18→21:38)
[2018-07-22] MEDS: ACETAMINOPHEN 325MG TABLET PO PRN ×3 (06:03→20:21)
[2018-07-22] MEDS: BLOOD SUGAR DIAGNOSTIC STRIP TEST SCH ×4 (06:21→21:43)
[2018-07-22] MEDS: INSULIN LISPRO 100 UNITS/ML SUBCUT SCH ×4 (07:31→21:00)
[2018-07-22 08:00] VITALS: BP 101/55
[2018-07-22] MEDS: PREDNISONE 20MG TABLET PO SCH (08:33)
[2018-07-22] MEDS: TAMSULOSIN HCL 0.4MG SR CAPSULE PO SCH (08:33)
[2018-07-22 12:00] VITALS: BP 170/44
[2018-07-22 16:00] VITALS: BP 96/60
[2018-07-22] MEDS: MONTELUKAST SODIUM 10MG TABLET PO SCH (17:27)
[2018-07-22 20:00] VITALS: BP 116/69
[2018-07-22] MEDS: INSULIN GLARGINE UD 100 UNITS/ML SYR SUBCUT SCH (21:43)
[2018-07-23] VITALS: BP 109/58
[2018-07-23] MEDS: ACETAMINOPHEN 325MG TABLET PO PRN ×2 (03:20→10:47)
[2018-07-23 04:00] VITALS: BP 111/61
[2018-07-23] MEDS: IPRATROPIUM/ALBUTEROL 0.5-3(2.5)MG/3ML NEB HHN SCH ×5 (05:42→16:02)
[2018-07-23] MEDS: IBUPROFEN 600MG TABLET PO PRN (05:58)
[2018-07-23] MEDS: BLOOD SUGAR DIAGNOSTIC STRIP TEST SCH ×3 (07:14→17:20)
[2018-07-23] MEDS: INSULIN LISPRO 100 UNITS/ML SUBCUT SCH ×3 (07:50→17:43)
[2018-07-23 08:00] VITALS: BP 99/56
[2018-07-23] MEDS: PREDNISONE 20MG TABLET PO SCH (09:17)
[2018-07-23] MEDS: TAMSULOSIN HCL 0.4MG SR CAPSULE PO SCH (09:17)
[2018-07-23 12:00] VITALS: BP 116/47
[2018-07-23 16:00] VITALS: BP 117/54
[2018-07-23] MEDS ORDERED: TENOFOVIR 300MG TABLET PO SCH ×3 (17:00→18:00)
[2018-07-23] MEDS: MONTELUKAST SODIUM 10MG TABLET PO SCH (18:03)
[2018-07-23 18:17] VITALS: BP 117/80
== END 2018-07-23 18:41 | disposition home or self-care (01) | DRG 133 ==
LOC: ER 21:27 → 5WST 07-15 01:43 → EDBEDREQDT 07-15 01:46 → EDBEDREQ 07-15 01:46 → EDBEDREQTM 07-15 01:46 → ENRESERV 07-15 07:01 → 6EST 07-19 18:11
PROVIDERS: ADMIT Internal Medicine; ATTEND Internal Medicine
DX: J96.00 Acute respiratory failure, unspecified whether with hypoxia or hypercapnia (principal); N17.9 Acute kidney failure, unspecified; J44.1 Chronic obstructive pulmonary disease with (acute) exacerbation; E44.1 Mild protein-calorie malnutrition; N18.9 Chronic kidney disease, unspecified; F14.10 Cocaine abuse, uncomplicated; F17.210 Nicotine dependence, cigarettes, uncomplicated; H26.9 Unspecified cataract; I50.9 Heart failure, unspecified; Z60.2 Problems related to living alone; K27.9 Peptic ulcer, site unspecified, unspecified as acute or chronic, without hemorrhage or perforation; N40.0 Benign prostatic hyperplasia without lower urinary tract symptoms; Z87.01 Personal history of pneumonia (recurrent); Z87.11 Personal history of peptic ulcer disease; Z88.0 Allergy status to penicillin; Z90.3 Acquired absence of stomach [part of]; Z91.19 Patient's noncompliance with other medical treatment and regimen; Z68.24 Body mass index [BMI] 24.0-24.9, adult
CPT/HCPCS: 36415; 36600; 71045; 80048; 80305; 82375; 82805; 82962; 83605; 83880; 84100; 84484; 93005; 94640; 96365; 96375; 97162; 99285; C1893; G0482; J1815; J1885; J1956; J2405; J2930; J3475; J3490; J7030; J7050; J7512; J7620

== ENCOUNTER 2018-07-24 09:49 | Inpatient (IN) | payer MEDICARE, MEDICAID ==
[2018-07-24] VITALS (22 sets, daily range): BP systolic 84–139; BP diastolic 47–76
[~2018-07-24] VITALS: Ht 165.1 cm; Wt 64.4 kg
[2018-07-24] MEDS ORDERED: IPRATROPIUM BROMIDE (0.02%) 0.5MG/2.5ML NEB HHN STA (09:54)
[2018-07-24] MEDS ORDERED: METHYLPREDNISOLONE SOD SUCC 125 MG/2 ML VIAL IV STA (09:54)
[2018-07-24] MEDS ORDERED: MAGNESIUM 2 G PREMIX 50 ML IV STA (09:54)
[2018-07-24] MEDS ORDERED: ALBUTEROL (0.083%) 2.5MG/3ML NEB HHN STA (09:54)
[2018-07-24] MEDS ORDERED: ALBUTEROL (0.083%) 2.5MG/3ML NEB ONE (10:01)
[2018-07-24] MEDS ORDERED: IPRATROPIUM BROMIDE (0.02%) 0.5MG/2.5ML NEB ONE (10:02)
[2018-07-24 10:06] LABS: MEAN CORPUSCULAR HEMOGLOBIN 24.7 pg (28.0-32.0); MEAN CORPUSCULAR VOLUME 82.5 fL (80.0-94.0); MEAN PLATELET VOLUME 7.6 fl (7.4-10.4); PLATELET 379 x1000/uL (130-400); RED BLOOD CELL COUNT 2.35 mill/uL (4.7-6.1); RED CELL DISTRIBUTION WIDTH 18.3 % (11.6-14.6)
[2018-07-24 10:12] LABS: CHLORIDE 107 mEq/L (98-107)
[2018-07-24 10:13] LABS: PARTIAL THROMBOPLASTIN TIME 20.1 sec (23.4-31.0); PROTHROMBIN TIME 10.2 sec (9.1-11.1)
[2018-07-24 10:16] LABS: HEMATOCRIT. 19.4 % (42.0-52.0); HEMOGLOBIN. 5.8 g/dL (14.0-18.0)
[2018-07-24] MEDS ORDERED: LEVOFLOXACIN 500MG PREMIX 100 ML IV ONE (10:45)
[2018-07-24] MEDS ORDERED: SODIUM CHLORIDE 0.9% 1000ML BAG (SEPSIS BOLUS) IV ONE (10:45)
[2018-07-24] MEDS ORDERED: VANCOMYCIN 1 G PREMIX 200 ML IV SCH (10:45)
[2018-07-24 11:06] LABS: PLATELET ESTIMATE NORMAL
[2018-07-24 11:11] LABS: BG BASE EXCESS 1.7 mmol/L (-2.0-2.0); BG BILEVEL POS AIRWAY PRESSURE 15/5; BG CARBOXYHEMOGLOBIN 1.5 % (0.5-1.5); BG FRACTION INSPIRED OXYGEN 50; BG HCO3 ACT 26.5 mmol/L (22.0-26.0); BG METHEMOGLOBIN 0.3 % (0.0-1.5); BG OXYHEMOGLOBIN 97.2 % (94.0-97.0); BG PH 7.408 (7.350-7.450); BG PO2 196.6 mmHg (75.0-100.0); BG SAMPLE SITE RIGHT BRACHIAL; BG TOTAL HEMOGLOBIN 5.6 g/dL (12.0-18.0); BG VENT MODE MASK - CPAP
[2018-07-24] MEDS ORDERED: ACETAMINOPHEN 325MG TABLET PO PRN (11:15)
[2018-07-24] MEDS ORDERED: IPRATROPIUM/ALBUTEROL 0.5-3(2.5)MG/3ML NEB INH PRN (11:15)
[2018-07-24] MEDS ORDERED: NA PHOS,M-B/NA PHOS,DI-BA ENEMA 118ML PR PRN (11:15)
[2018-07-24] MEDS ORDERED: CLONIDINE 0.1MG TABLET PO PRN (11:15)
[2018-07-24] MEDS ORDERED: DOCUSATE SODIUM 100MG CAPSULE PO PRN (11:15)
[2018-07-24] MEDS ORDERED: GUAIFENESIN 200MG/10ML SUGAR FREE UDC PO PRN (11:15)
[2018-07-24] MEDS: FAMOTIDINE 20MG/2ML VIAL IV SCH (13:15)
[2018-07-24] MEDS ORDERED: LIDOCAINE HCL 1% 20ML VIAL (Pyxis) INJ ONE (13:44)
[2018-07-24] MEDS: LORAZEPAM 2MG/ML CPJ IV PRN (13:46)
[2018-07-24] MEDS ORDERED: LEVOFLOXACIN 500MG PREMIX 100 ML IV NR (14:00)
[2018-07-24] MEDS: ACETYLCYSTEINE 100MG/ML 10% VIAL 4ML INH SCH (14:00)
[2018-07-24] MEDS ORDERED: AZITHROMYCIN 500 MG in DEXT 5% WATER 250 ML IV SCH (15:00)
[2018-07-24] MEDS ORDERED: VANCOMYCIN 1,250 MG in DEXT 5% WATER 250 ML IV SCH (15:00)
[2018-07-24] MEDS: IPRATROPIUM/ALBUTEROL 0.5-3(2.5)MG/3ML NEB HHN SCH ×2 (15:19→18:52)
[2018-07-24] MEDS: METHYLPREDNISOLONE SOD SUCC 125 MG/2 ML VIAL IV SCH ×2 (15:34→18:58)
[2018-07-24] MEDS: SODIUM CHLORIDE 0.45% 1,000 ML IV SCH (15:36)
[2018-07-24 18:23] LABS: CLARITY URINE CLEAR (CLEAR); COLOR URINE YELLOW (YELLOW); KETONES URINE NEGATIVE (NEGATIVE); LEUKOCYTE ESTERASE URINE NEGATIVE (NEGATIVE); NITRITE URINE NEGATIVE (NEGATIVE); OCCULT BLOOD URINE NEGATIVE (NEGATIVE); PH URINE 6.5 (4.5-8.0); PROTEIN URINE NEGATIVE (NEGATIVE); SPECIFIC GRAVITY URINE 1.014 (1.005-1.030)
[2018-07-24 18:53] LABS: *BARBITURATES SCREEN URINE NEGATIVE (NEGATIVE)
[2018-07-24 18:54] LABS: *AMPHETAMINES SCREEN URINE NEGATIVE (NEGATIVE); *BENZODIAZEPINES SCREEN URINE NEGATIVE (NEGATIVE); *COCAINE SCREEN URINE PRESUMTIVE POSITIVE (NEGATIVE); METHADONE URINE SCREEN NEGATIVE (NEGATIVE); OPIATES URINE SCREEN NEGATIVE (NEGATIVE); PHENCYCLIDINE URINE SCREEN NEGATIVE (NEGATIVE)
[2018-07-24 18:55] LABS: CANNABINOID URINE SCREEN NEGATIVE (NEGATIVE)
[2018-07-24] MEDS: AZITHROMYCIN 500 MG in DEXT 5% WATER 250 ML IV SCH (18:58)
[2018-07-24] MEDS: MORPHINE SULFATE 4 MG/ML CPJ (NOT FOR IM USE) IV PRN (20:19)
[2018-07-24] MEDS ORDERED: VANCOMYCIN 500 MG PREMIX 100 ML IV SCH (21:00)
[2018-07-25] VITALS (20 sets, daily range): BP systolic 87–142; BP diastolic 52–99
[2018-07-25] MEDS: ACETYLCYSTEINE 100MG/ML 10% VIAL 4ML INH SCH ×3 (00:17→15:49)
[2018-07-25] MEDS: IPRATROPIUM/ALBUTEROL 0.5-3(2.5)MG/3ML NEB HHN SCH ×6 (00:17→20:30)
[2018-07-25] MEDS: LORAZEPAM 2MG/ML CPJ IV PRN ×4 (00:59→17:33)
[2018-07-25] MEDS: METHYLPREDNISOLONE SOD SUCC 125 MG/2 ML VIAL IV SCH ×5 (00:59→23:31)
[2018-07-25] MEDS: SODIUM CHLORIDE 0.45% 1,000 ML IV SCH (00:59)
[2018-07-25] MEDS: MORPHINE SULFATE 4 MG/ML CPJ (NOT FOR IM USE) IV PRN (04:32)
[2018-07-25 06:48] LABS: MEAN CORPUSCULAR HEMOGLOBIN 25.5 pg (28.0-32.0); MEAN CORPUSCULAR VOLUME 81.7 fL (80.0-94.0); MEAN PLATELET VOLUME 7.5 fl (7.4-10.4); PLATELET 327 x1000/uL (130-400); RED BLOOD CELL COUNT 2.29 mill/uL (4.7-6.1); RED CELL DISTRIBUTION WIDTH 17.5 % (11.6-14.6)
[2018-07-25 07:00] LABS: HEMATOCRIT. 18.7 % (42.0-52.0); HEMOGLOBIN. 5.8 g/dL (14.0-18.0)
[2018-07-25 07:13] LABS: CHLORIDE 105 mEq/L (98-107)
[2018-07-25 07:47] LABS: LDL CHOLESTEROL 87 mg/dL (5-100)
[2018-07-25 07:48] LABS: HDL CHOLESTEROL 46 mg/dL (40-59)
[2018-07-25] MEDS: SODIUM CHLORIDE 10% FOR INH 15ML VIAL NEB INH SCH ×2 (08:38→12:16)
[2018-07-25] MEDS: FAMOTIDINE 20MG/2ML VIAL IV SCH (11:35)
[2018-07-25 11:41] LABS: PLATELET ESTIMATE NORMAL
[2018-07-25] MEDS ORDERED: VANCOMYCIN 1 G PREMIX 200 ML IV SCH (12:00)
[2018-07-25] MEDS ORDERED: LEVOFLOXACIN 250MG PREMIX 50 ML IV SCH (13:00)
[2018-07-25] MEDS: VANCOMYCIN 1 G PREMIX 200 ML IV SCH (17:12)
[2018-07-25] MEDS: AZITHROMYCIN 500 MG in DEXT 5% WATER 250 ML IV SCH (17:39)
[2018-07-26] VITALS (14 sets, daily range): BP systolic 103–128; BP diastolic 61–92
[2018-07-26] MEDS: IPRATROPIUM/ALBUTEROL 0.5-3(2.5)MG/3ML NEB HHN SCH ×5 (04:21→20:00)
[2018-07-26] MEDS: METHYLPREDNISOLONE SOD SUCC 125 MG/2 ML VIAL IV SCH ×4 (06:09→23:08)
[2018-07-26] MEDS: ACETYLCYSTEINE 100MG/ML 10% VIAL 4ML INH SCH ×2 (08:00→16:00)
[2018-07-26 10:22] LABS: BASOPHILS % 0.1 % (0.0-2.0); HEMATOCRIT. 27.9 % (42.0-52.0); LYMPHOCYTES % 18.9 % (20.0-50.0); MEAN CORPUSCULAR HEMOGLOBIN 26.3 pg (28.0-32.0); MEAN CORPUSCULAR VOLUME 81.8 fL (80.0-94.0); MEAN PLATELET VOLUME 6.9 fl (7.4-10.4); MONOCYTES % 3.4 % (2.0-8.0); NEUTROPHILS % 77.6 % (40.0-76.0); PLATELET 368 x1000/uL (130-400); RED BLOOD CELL COUNT 3.41 mill/uL (4.7-6.1); RED CELL DISTRIBUTION WIDTH 17.2 % (11.6-14.6)
[2018-07-26] MEDS: LEVOFLOXACIN 750MG PREMIX 150 ML IV SCH (12:16)
[2018-07-26] MEDS: SODIUM CHLORIDE 0.45% 1,000 ML IV SCH (12:17)
[2018-07-26] MEDS: FAMOTIDINE 20MG/2ML VIAL IV SCH (12:17)
[2018-07-26] MEDS: VANCOMYCIN 1 G PREMIX 200 ML IV SCH (14:00)
[2018-07-26] MEDS: HYDROCODONE/ACETAMINOPHEN 5/325MG TABLET PO PRN (14:20)
[2018-07-26] MEDS: LORAZEPAM 2MG/ML CPJ IV PRN (15:11)
[2018-07-26] MEDS: AZITHROMYCIN 500 MG in DEXT 5% WATER 250 ML IV SCH (17:46)
[2018-07-26] MEDS: MORPHINE SULFATE 4 MG/ML CPJ (NOT FOR IM USE) IV PRN ×2 (17:47→23:08)
[2018-07-27] MEDS: IPRATROPIUM/ALBUTEROL 0.5-3(2.5)MG/3ML NEB HHN SCH ×6 (00:38→22:19)
[2018-07-27] MEDS: ACETYLCYSTEINE 100MG/ML 10% VIAL 4ML INH SCH ×4 (00:41→18:47)
[2018-07-27 05:50] LABS: VANCOMYCIN TROUGH 10.8 ug/mL (5.0-10.0)
[2018-07-27] MEDS: VANCOMYCIN 1 G PREMIX 200 ML IV SCH ×3 (05:59→18:47)
[2018-07-27] MEDS: METHYLPREDNISOLONE SOD SUCC 125 MG/2 ML VIAL IV SCH ×2 (06:00→14:53)
[2018-07-27 06:30] LABS: BASOPHILS % 0.5 % (0.0-2.0); HEMATOCRIT. 23.8 % (42.0-52.0); HEMOGLOBIN. 7.7 g/dL (14.0-18.0); LYMPHOCYTES % 17.7 % (20.0-50.0); MEAN CORPUSCULAR HEMOGLOBIN 26.8 pg (28.0-32.0); MEAN CORPUSCULAR VOLUME 82.7 fL (80.0-94.0); MEAN PLATELET VOLUME 8.6 fl (7.4-10.4); MONOCYTES % 4.7 % (2.0-8.0); NEUTROPHILS % 77.1 % (40.0-76.0); PLATELET 342 x1000/uL (130-400); RED BLOOD CELL COUNT 2.88 mill/uL (4.7-6.1)
[2018-07-27] MEDS: SODIUM CHLORIDE 0.45% 1,000 ML IV SCH (11:03)
[2018-07-27 12:00] VITALS: BP 137/81
[2018-07-27 14:00] VITALS: BP 121/73
[2018-07-27] MEDS ORDERED: SODIUM POLYSTYRENE SULFONATE 15 G/60 ML BOT PO NR (14:00)
[2018-07-27] MEDS: FAMOTIDINE 20MG/2ML VIAL IV SCH (14:53)
[2018-07-27] MEDS: MORPHINE SULFATE 4 MG/ML CPJ (NOT FOR IM USE) IV PRN ×2 (15:08→21:20)
[2018-07-27 16:00] VITALS: BP 127/79
[2018-07-27 18:00] VITALS: BP 127/70
[2018-07-27] MEDS: AZITHROMYCIN 500 MG in DEXT 5% WATER 250 ML IV SCH (18:47)
[2018-07-27 20:00] VITALS: BP 130/76
[2018-07-27 22:00] VITALS: BP 125/78
[2018-07-28] VITALS (7 sets, daily range): BP systolic 103–144; BP diastolic 57–85
[2018-07-28] MEDS: IPRATROPIUM/ALBUTEROL 0.5-3(2.5)MG/3ML NEB HHN SCH ×6 (01:27→21:58)
[2018-07-28] MEDS: ACETYLCYSTEINE 100MG/ML 10% VIAL 4ML INH SCH ×3 (01:27→15:56)
[2018-07-28] MEDS: VANCOMYCIN 1 G PREMIX 200 ML IV SCH ×2 (05:53→18:06)
[2018-07-28 07:57] LABS: BASOPHILS % 0.2 % (0.0-2.0); HEMATOCRIT. 26.8 % (42.0-52.0); HEMOGLOBIN. 8.5 g/dL (14.0-18.0); LYMPHOCYTES % 20.6 % (20.0-50.0); MEAN CORPUSCULAR HEMOGLOBIN 26.2 pg (28.0-32.0); MEAN CORPUSCULAR VOLUME 82.2 fL (80.0-94.0); MEAN PLATELET VOLUME 6.7 fl (7.4-10.4); MONOCYTES % 9.3 % (2.0-8.0); NEUTROPHILS % 69.9 % (40.0-76.0); PLATELET 369 x1000/uL (130-400); RED BLOOD CELL COUNT 3.26 mill/uL (4.7-6.1); RED CELL DISTRIBUTION WIDTH 17.5 % (11.6-14.6)
[2018-07-28] MEDS: PREDNISONE 20MG TABLET PO SCH (08:41)
[2018-07-28] MEDS: MORPHINE SULFATE 4 MG/ML CPJ (NOT FOR IM USE) IV PRN ×3 (08:45→20:51)
[2018-07-28] MEDS: LEVOFLOXACIN 750MG PREMIX 150 ML IV SCH (11:00)
[2018-07-28] MEDS: FAMOTIDINE 20MG/2ML VIAL IV SCH (11:10)
[2018-07-28] MEDS: HYDROCODONE/ACETAMINOPHEN 5/325MG TABLET PO PRN (18:04)
[2018-07-28] MEDS: AZITHROMYCIN 500 MG in DEXT 5% WATER 250 ML IV SCH (18:06)
[2018-07-29] MEDS: IPRATROPIUM/ALBUTEROL 0.5-3(2.5)MG/3ML NEB HHN SCH ×6 (01:02→20:53)
[2018-07-29] MEDS: ACETYLCYSTEINE 100MG/ML 10% VIAL 4ML INH SCH ×2 (01:02→12:27)
[2018-07-29 05:14] VITALS: BP 110/67
[2018-07-29] MEDS: VANCOMYCIN 1 G PREMIX 200 ML IV SCH ×2 (05:16→20:27)
[2018-07-29] MEDS: MORPHINE SULFATE 4 MG/ML CPJ (NOT FOR IM USE) IV PRN (05:16)
[2018-07-29] MEDS: ONDANSETRON HCL 4MG/2ML INJ IV PRN ×2 (09:39→20:27)
[2018-07-29] MEDS: PREDNISONE 20MG TABLET PO SCH (10:58)
[2018-07-29 12:00] VITALS: BP 125/70
[2018-07-29] MEDS: FAMOTIDINE 20MG/2ML VIAL IV SCH (12:25)
[2018-07-29 14:00] VITALS: BP 107/70
[2018-07-29] MEDS: MAGNESIUM/ALUMINUM HYDROXIDE/SIMETHICONE 30ML UDC PO PRN (14:17)
[2018-07-29 16:00] VITALS: BP 100/67
[2018-07-29] MEDS: AZITHROMYCIN 500 MG in DEXT 5% WATER 250 ML IV SCH (17:56)
[2018-07-30] MEDS: MORPHINE SULFATE 4 MG/ML CPJ (NOT FOR IM USE) IV PRN ×3 (00:20→21:30)
[2018-07-30] MEDS: IPRATROPIUM/ALBUTEROL 0.5-3(2.5)MG/3ML NEB HHN SCH ×6 (00:45→19:59)
[2018-07-30 08:00] VITALS: BP 102/59
[2018-07-30] MEDS: VANCOMYCIN 1 G PREMIX 200 ML IV SCH (08:31)
[2018-07-30] MEDS: PREDNISONE 20MG TABLET PO SCH (08:31)
[2018-07-30] MEDS: LEVOFLOXACIN 750MG PREMIX 150 ML IV SCH (10:47)
[2018-07-30 12:00] VITALS: BP 126/56
[2018-07-30] MEDS: LORAZEPAM 2MG/ML CPJ IV PRN ×2 (12:11→16:58)
[2018-07-30] MEDS: FAMOTIDINE 20MG/2ML VIAL IV SCH (12:11)
[2018-07-30 16:00] VITALS: BP 103/71
[2018-07-30] MEDS: AZITHROMYCIN 500 MG in DEXT 5% WATER 250 ML IV SCH ×2 (17:03→18:00)
[2018-07-31] MEDS: IPRATROPIUM/ALBUTEROL 0.5-3(2.5)MG/3ML NEB HHN SCH ×6 (00:05→21:34)
[2018-07-31 08:00] VITALS: BP 96/63
[2018-07-31] MEDS ORDERED: VANCOMYCIN 1 G PREMIX 200 ML IV SCH (08:00)
[2018-07-31] MEDS: PREDNISONE 20MG TABLET PO SCH (08:03)
[2018-07-31] MEDS: MORPHINE SULFATE 4 MG/ML CPJ (NOT FOR IM USE) IV PRN (08:27)
[2018-07-31 12:00] VITALS: BP 97/57
[2018-07-31] MEDS: LORAZEPAM 2MG/ML CPJ IV PRN ×2 (12:15→18:59)
[2018-07-31] MEDS: FAMOTIDINE 20MG/2ML VIAL IV SCH (12:15)
[2018-07-31 13:10] LABS: HEMATOCRIT 28.9 % (42.0-52.0); HEMOGLOBIN 9.1 g/dL (14.0-18.0); MEAN CORPUSCULAR HEMOGLOBIN 26.3 pg (28.0-32.0); MEAN CORPUSCULAR VOLUME 83.1 fL (80.0-94.0); PLATELET 298 x1000/uL (130-400); RED BLOOD CELL COUNT 3.47 mill/uL (4.7-6.1); RED CELL DISTRIBUTION WIDTH 17.4 % (11.6-14.6)
[2018-07-31 16:34] VITALS: BP 91/57
[2018-08-01] VITALS: BP 109/68
[2018-08-01] MEDS: IPRATROPIUM/ALBUTEROL 0.5-3(2.5)MG/3ML NEB HHN SCH ×6 (01:28→21:13)
[2018-08-01] MEDS: MORPHINE SULFATE 4 MG/ML CPJ (NOT FOR IM USE) IV PRN (03:01)
[2018-08-01] MEDS: LORAZEPAM 2MG/ML CPJ IV PRN (03:01)
[2018-08-01 04:00] VITALS: BP 99/52
[2018-08-01 08:00] VITALS: BP 84/50
[2018-08-01] MEDS: PREDNISONE 20MG TABLET PO SCH (09:30)
[2018-08-01] MEDS: FAMOTIDINE 20MG/2ML VIAL IV SCH (11:50)
[2018-08-01 12:00] VITALS: BP 86/60
[2018-08-01 16:00] VITALS: BP 80/59
[2018-08-01 20:00] VITALS: BP 101/62
[2018-08-02] VITALS: BP 122/76
[2018-08-02] MEDS: IPRATROPIUM/ALBUTEROL 0.5-3(2.5)MG/3ML NEB HHN SCH ×5 (01:03→16:35)
[2018-08-02 04:00] VITALS: BP 92/65
[2018-08-02] MEDS: MORPHINE SULFATE 4 MG/ML CPJ (NOT FOR IM USE) IV PRN ×2 (06:00→11:20)
[2018-08-02 07:14] LABS: HEMATOCRIT 27.7 % (42.0-52.0); HEMOGLOBIN 8.6 g/dL (14.0-18.0); MEAN CORPUSCULAR HEMOGLOBIN 25.6 pg (28.0-32.0); MEAN CORPUSCULAR VOLUME 82.8 fL (80.0-94.0); PLATELET 363 x1000/uL (130-400); RED BLOOD CELL COUNT 3.34 mill/uL (4.7-6.1); RED CELL DISTRIBUTION WIDTH 17.2 % (11.6-14.6)
[2018-08-02 08:00] VITALS: BP 103/70
[2018-08-02] MEDS: PREDNISONE 20MG TABLET PO SCH (08:29)
[2018-08-02] MEDS ORDERED: FAMOTIDINE 20MG/2ML VIAL IV SCH (09:00)
[2018-08-02 12:00] VITALS: BP 97/52
[2018-08-02] MEDS: MAGNESIUM/ALUMINUM HYDROXIDE/SIMETHICONE 30ML UDC PO PRN (15:35)
[2018-08-02 16:00] VITALS: BP 120/67
== END 2018-08-02 16:47 | disposition left against medical advice (07) | DRG 140 ==
LOC: ER 09:49 → MICUSO 10:56 → EDBEDREQ 10:58 → EDBEDREQSVC 10:58 → ENRESERV 11:08 → 5EST 23:50 → 6EST 07-31 16:50
PROVIDERS: ADMIT Internal Medicine; ATTEND Internal Medicine
PROC: 02HV33Z Insertion of Infusion Device into Superior Vena Cava, Percutaneous Approach (ICD-10-PCS; principal; 2018-07-24)
PROC: B548ZZA Ultrasonography of Superior Vena Cava, Guidance (ICD-10-PCS; 2018-07-24)
PROC: 30233N1 Transfusion of Nonautologous Red Blood Cells into Peripheral Vein, Percutaneous Approach (ICD-10-PCS; 2018-07-24)
PROC: 5A09357 Assistance with Respiratory Ventilation, Less than 24 Consecutive Hours, Continuous Positive Airway Pressure (ICD-10-PCS; 2018-07-24)
PROC: 5A09357 Assistance with Respiratory Ventilation, Less than 24 Consecutive Hours, Continuous Positive Airway Pressure (ICD-10-PCS; 2018-07-26)
DX: J44.1 Chronic obstructive pulmonary disease with (acute) exacerbation (principal); J96.01 Acute respiratory failure with hypoxia; N17.0 Acute kidney failure with tubular necrosis; E46 Unspecified protein-calorie malnutrition; I95.9 Hypotension, unspecified; E87.5 Hyperkalemia; D64.9 Anemia, unspecified; N18.9 Chronic kidney disease, unspecified; I12.9 Hypertensive chronic kidney disease with stage 1 through stage 4 chronic kidney disease, or unspecified chronic kidney disease; F17.210 Nicotine dependence, cigarettes, uncomplicated; Z53.21 Procedure and treatment not carried out due to patient leaving prior to being seen by health care provider; H26.9 Unspecified cataract; F14.10 Cocaine abuse, uncomplicated; I25.10 Atherosclerotic heart disease of native coronary artery without angina pectoris; J98.11 Atelectasis; N40.0 Benign prostatic hyperplasia without lower urinary tract symptoms; Z79.51 Long term (current) use of inhaled steroids; Z79.899 Other long term (current) drug therapy; Z87.01 Personal history of pneumonia (recurrent); Z87.11 Personal history of peptic ulcer disease; Z90.3 Acquired absence of stomach [part of]; Z88.0 Allergy status to penicillin; Z71.6 Tobacco abuse counseling; Z68.23 Body mass index [BMI] 23.0-23.9, adult
CPT/HCPCS: 36415; 36569; 36600; 71045; 76770; 76937; 80048; 80061; 80202; 80305; 82375; 82805; 82962; 83605; 83735; 83880; 84132; 84145; 84484; 85027; 85044; 86850; 86900; 86920; 87804; 93005; 94640; 94660; 96365; 96367; 96375; 99291; C1725; J0456; J1956; J2060; J2270; J2405; J2930; J3370; J3475; J3490; J7030; J7040; J7050; J7060; J7131; J7512; J7608; J7611; J7620; P9016; A4315

== ENCOUNTER 2018-08-03 22:21 | Inpatient (IN) | payer MEDICARE, MEDICAID ==
[~2018-08-03] VITALS: Ht 167.6 cm; Wt 72.1 kg
[2018-08-03] MEDS ORDERED: ALBUTEROL (0.083%) 2.5MG/3ML NEB HHN STA (22:48)
[2018-08-03] MEDS ORDERED: METHYLPREDNISOLONE SOD SUCC 125 MG/2 ML VIAL IV STA (22:48)
[2018-08-03] MEDS ORDERED: IPRATROPIUM BROMIDE (0.02%) 0.5MG/2.5ML NEB HHN STA (22:48)
[2018-08-04 00:04] LABS: BASOPHILS % 0.5 % (0.0-2.0); HEMATOCRIT. 30.7 % (42.0-52.0); HEMOGLOBIN. 9.6 g/dL (14.0-18.0); LYMPHOCYTES % 21.8 % (20.0-50.0); MEAN CORPUSCULAR VOLUME 82.8 fL (80.0-94.0); MEAN PLATELET VOLUME 6.9 fl (7.4-10.4); MONOCYTES % 8.2 % (2.0-8.0); NEUTROPHILS % 68.5 % (40.0-76.0); PLATELET 422 x1000/uL (130-400); RED BLOOD CELL COUNT 3.71 mill/uL (4.7-6.1); RED CELL DISTRIBUTION WIDTH 17.2 % (11.6-14.6)
[2018-08-04 00:06] LABS: CHLORIDE 105 mEq/L (98-107)
[2018-08-04 10:43] VITALS: BP 114/67
[2018-08-04 12:00] VITALS: BP 114/67
[2018-08-04] MEDS ORDERED: IPRATROPIUM/ALBUTEROL 0.5-3(2.5)MG/3ML NEB HHN PRN (12:30)
[2018-08-04] MEDS ORDERED: GUAIFENESIN-DM 200MG-20MG/10ML UDC PO PRN (12:30)
[2018-08-04 12:45] VITALS: BP 114/67
[2018-08-04] MEDS ORDERED: METHYLPREDNISOLONE SOD SUCC 40 MG/ML VIAL IV SCH (13:00)
[2018-08-04] MEDS ORDERED: LEVOFLOXACIN 500MG PREMIX 100 ML IV SCH (14:00)
[2018-08-04 16:00] VITALS: BP 155/85
[2018-08-04] MEDS: TRAMADOL 50MG TABLET PO PRN (16:03)
[2018-08-04] MEDS: IPRATROPIUM/ALBUTEROL 0.5-3(2.5)MG/3ML NEB HHN SCH ×2 (16:46→19:34)
[2018-08-04 17:14] LABS: CLARITY URINE CLEAR (CLEAR); COLOR URINE YELLOW (YELLOW); KETONES URINE NEGATIVE (NEGATIVE); LEUKOCYTE ESTERASE URINE NEGATIVE (NEGATIVE); NITRITE URINE NEGATIVE (NEGATIVE); OCCULT BLOOD URINE NEGATIVE (NEGATIVE); PROTEIN URINE TRACE (NEGATIVE); SPECIFIC GRAVITY URINE 1.019 (1.005-1.030); UROBILINOGEN URINE 0.2 E.U./dL (0.2-1.0)
[2018-08-04] MEDS: PREDNISONE 20MG TABLET PO SCH (18:22)
[2018-08-04 20:00] VITALS: BP 110/68
[2018-08-04] MEDS: MONTELUKAST SODIUM 10MG TABLET PO SCH (20:42)
[2018-08-04] MEDS: GUAIFENESIN 600MG ER TABLET PO SCH (20:42)
[2018-08-04] MEDS: HYDROCODONE/ACETAMINOPHEN 5/325MG TABLET PO PRN (22:13)
[2018-08-05] VITALS (7 sets, daily range): BP systolic 111–155; BP diastolic 63–87
[2018-08-05] MEDS: IPRATROPIUM/ALBUTEROL 0.5-3(2.5)MG/3ML NEB HHN SCH ×4 (01:42→21:45)
[2018-08-05 07:25] LABS: BASOPHILS % 0.1 % (0.0-2.0); HEMATOCRIT. 25.6 % (42.0-52.0); HEMOGLOBIN. 7.9 g/dL (14.0-18.0); MEAN CORPUSCULAR HEMOGLOBIN 25.7 pg (28.0-32.0); MEAN CORPUSCULAR VOLUME 83.1 fL (80.0-94.0); MEAN PLATELET VOLUME 6.7 fl (7.4-10.4); MONOCYTES % 6.4 % (2.0-8.0); NEUTROPHILS % 75.5 % (40.0-76.0); PLATELET 367 x1000/uL (130-400); RED BLOOD CELL COUNT 3.08 mill/uL (4.7-6.1); RED CELL DISTRIBUTION WIDTH 17.1 % (11.6-14.6)
[2018-08-05] MEDS: GUAIFENESIN 600MG ER TABLET PO SCH ×2 (08:05→20:25)
[2018-08-05] MEDS: PREDNISONE 20MG TABLET PO SCH ×2 (08:05→18:08)
[2018-08-05] MEDS ORDERED: LEVOFLOXACIN 250MG PREMIX 50 ML IV SCH (14:00)
[2018-08-05] MEDS: TRAMADOL 50MG TABLET PO PRN (18:08)
[2018-08-05] MEDS: MONTELUKAST SODIUM 10MG TABLET PO SCH (20:25)
[2018-08-06] VITALS: BP 135/82
[2018-08-06] MEDS: IPRATROPIUM/ALBUTEROL 0.5-3(2.5)MG/3ML NEB HHN SCH ×5 (00:20→14:18)
[2018-08-06] MEDS: HYDROCODONE/ACETAMINOPHEN 5/325MG TABLET PO PRN (03:28)
[2018-08-06 04:00] VITALS: BP 126/74
[2018-08-06] MEDS: GUAIFENESIN 600MG ER TABLET PO SCH (08:17)
[2018-08-06] MEDS: PREDNISONE 20MG TABLET PO SCH (08:17)
[2018-08-06] MEDS: TRAMADOL 50MG TABLET PO PRN (08:18)
[2018-08-06 13:18] VITALS: BP 111/71
== END 2018-08-06 15:44 | disposition home or self-care (01) | DRG 140 ==
LOC: ER 22:21 → 7WST 08-04 01:29 → EDBEDREQTM 08-04 01:41 → EDBEDREQDT 08-04 01:41 → EDBEDREQ 08-04 01:41 → ENRESERV 08-04 08:00
PROVIDERS: ADMIT Internal Medicine; ATTEND Internal Medicine
DX: J44.1 Chronic obstructive pulmonary disease with (acute) exacerbation (principal); J96.01 Acute respiratory failure with hypoxia; E43 Unspecified severe protein-calorie malnutrition; N17.9 Acute kidney failure, unspecified; E11.22 Type 2 diabetes mellitus with diabetic chronic kidney disease; D64.9 Anemia, unspecified; N18.3 Chronic kidney disease, stage 3 (moderate); N40.0 Benign prostatic hyperplasia without lower urinary tract symptoms; I12.9 Hypertensive chronic kidney disease with stage 1 through stage 4 chronic kidney disease, or unspecified chronic kidney disease; F14.90 Cocaine use, unspecified, uncomplicated; H26.9 Unspecified cataract; H54.7 Unspecified visual loss; E11.36 Type 2 diabetes mellitus with diabetic cataract; Z88.0 Allergy status to penicillin; Z87.01 Personal history of pneumonia (recurrent); Z68.25 Body mass index [BMI] 25.0-25.9, adult
CPT/HCPCS: 36415; 71045; 80048; 83036; 83880; 84484; 93005; 94640; 96374; 97162; 99285; J1956; J2920; J2930; J7040; J7512; J7611; J7620

== ENCOUNTER 2018-08-09 18:41 | Inpatient (IN) | payer MEDICARE, MEDICAID ==
[~2018-08-09] VITALS: Ht 170.2 cm; Wt 59.0 kg
[2018-08-09] MEDS ORDERED: METHYLPREDNISOLONE SOD SUCC 125 MG/2 ML VIAL IV STA (23:38)
[2018-08-09] MEDS ORDERED: IPRATROPIUM BROMIDE (0.02%) 0.5MG/2.5ML NEB HHN STA (23:38)
[2018-08-09] MEDS ORDERED: ALBUTEROL (0.083%) 2.5MG/3ML NEB HHN STA (23:38)
[2018-08-10 00:26] LABS: BASOPHILS % 0.2 % (0.0-2.0); EOSINOPHILS % 2.5 % (0.0-5.0); HEMATOCRIT. 28.5 % (42.0-52.0); HEMOGLOBIN. 8.8 g/dL (14.0-18.0); LYMPHOCYTES % 23.5 % (20.0-50.0); MEAN CORPUSCULAR HEMOGLOBIN 25.6 pg (28.0-32.0); MEAN CORPUSCULAR VOLUME 83.2 fL (80.0-94.0); MEAN PLATELET VOLUME 6.6 fl (7.4-10.4); MONOCYTES % 8.4 % (2.0-8.0); NEUTROPHILS % 65.4 % (40.0-76.0); PLATELET 403 x1000/uL (130-400); RED BLOOD CELL COUNT 3.43 mill/uL (4.7-6.1); RED CELL DISTRIBUTION WIDTH 16.8 % (11.6-14.6)
[2018-08-10 00:33] LABS: CHLORIDE 109 mEq/L (98-107)
[2018-08-10] MEDS ORDERED: ALBUTEROL (0.083%) 2.5MG/3ML NEB HHN STA (01:44)
[2018-08-10] MEDS ORDERED: IPRATROPIUM BROMIDE (0.02%) 0.5MG/2.5ML NEB HHN STA (01:44)
[2018-08-10] MEDS ORDERED: ONDANSETRON HCL 4MG/2ML INJ IV ONE (03:30)
[2018-08-10] MEDS: IPRATROPIUM/ALBUTEROL 0.5-3(2.5)MG/3ML NEB HHN SCH ×3 (11:45→19:56)
[2018-08-10] MEDS ORDERED: METHYLPREDNISOLONE SOD SUCC 40 MG/ML VIAL IV NR ×2 (11:45→19:27)
[2018-08-10] MEDS: GUAIFENESIN-DM 200MG-20MG/10ML UDC PO PRN (12:29)
[2018-08-10 21:04] VITALS: BP 137/79
[2018-08-10 21:05] VITALS: BP 137/79
[2018-08-11] VITALS: BP 112/70
[2018-08-11] MEDS: IPRATROPIUM/ALBUTEROL 0.5-3(2.5)MG/3ML NEB HHN SCH ×5 (00:51→23:44)
[2018-08-11] MEDS ORDERED: MORPHINE SULFATE 4 MG/ML CPJ (NOT FOR IM USE) IV PRN (01:15)
[2018-08-11] MEDS ORDERED: ONDANSETRON HCL 4MG/2ML INJ IV PRN (01:15)
[2018-08-11 04:00] VITALS: BP 110/64
[2018-08-11 04:14] LABS: CLARITY URINE CLEAR (CLEAR); COLOR URINE YELLOW (YELLOW); KETONES URINE NEGATIVE (NEGATIVE); LEUKOCYTE ESTERASE URINE NEGATIVE (NEGATIVE); NITRITE URINE NEGATIVE (NEGATIVE); OCCULT BLOOD URINE NEGATIVE (NEGATIVE); PROTEIN URINE TRACE (NEGATIVE); SPECIFIC GRAVITY URINE 1.021 (1.005-1.030); UROBILINOGEN URINE 0.2 E.U./dL (0.2-1.0)
[2018-08-11 04:38] LABS: *AMPHETAMINES SCREEN URINE NEGATIVE (NEGATIVE); *BARBITURATES SCREEN URINE NEGATIVE (NEGATIVE); *BENZODIAZEPINES SCREEN URINE NEGATIVE (NEGATIVE); *COCAINE SCREEN URINE PRESUMTIVE POSITIVE (NEGATIVE)
[2018-08-11 04:39] LABS: CANNABINOID URINE SCREEN NEGATIVE (NEGATIVE); METHADONE URINE SCREEN NEGATIVE (NEGATIVE); OPIATES URINE SCREEN NEGATIVE (NEGATIVE); PHENCYCLIDINE URINE SCREEN NEGATIVE (NEGATIVE)
[2018-08-11] MEDS: METHYLPREDNISOLONE SOD SUCC 40 MG/ML VIAL IV SCH ×3 (05:31→20:46)
[2018-08-11 06:48] LABS: HEMOGLOBIN. 7.5 g/dL (14.0-18.0); MEAN CORPUSCULAR HEMOGLOBIN 25.4 pg (28.0-32.0); MEAN CORPUSCULAR VOLUME 81.5 fL (80.0-94.0); MEAN PLATELET VOLUME 6.8 fl (7.4-10.4); MONOCYTES % 4.9 % (2.0-8.0); NEUTROPHILS % 76.1 % (40.0-76.0); PLATELET 385 x1000/uL (130-400); RED BLOOD CELL COUNT 2.94 mill/uL (4.7-6.1); RED CELL DISTRIBUTION WIDTH 16.3 % (11.6-14.6)
[2018-08-11 08:13] VITALS: BP 108/65
[2018-08-11] MEDS: TRAMADOL 50MG TABLET PO PRN (11:07)
[2018-08-11 12:00] VITALS: BP 102/64
[2018-08-11 16:00] VITALS: BP 101/66
[2018-08-11] MEDS: MONTELUKAST SODIUM 10MG TABLET PO SCH (18:17)
[2018-08-11 19:50] VITALS: BP 97/54
[2018-08-12] VITALS (8 sets, daily range): BP systolic 88–140; BP diastolic 54–80
[2018-08-12] MEDS: TRAMADOL 50MG TABLET PO PRN ×2 (00:59→20:12)
[2018-08-12] MEDS: IPRATROPIUM/ALBUTEROL 0.5-3(2.5)MG/3ML NEB HHN SCH ×4 (04:00→20:46)
[2018-08-12] MEDS: METHYLPREDNISOLONE SOD SUCC 40 MG/ML VIAL IV SCH ×2 (04:40→14:00)
[2018-08-12] MEDS: MONTELUKAST SODIUM 10MG TABLET PO SCH (17:36)
[2018-08-12 18:21] LABS: MEAN CORPUSCULAR HEMOGLOBIN 25.6 pg (28.0-32.0); MEAN CORPUSCULAR VOLUME 82.1 fL (80.0-94.0); MEAN PLATELET VOLUME 7.1 fl (7.4-10.4); PLATELET 369 x1000/uL (130-400); RED BLOOD CELL COUNT 1.99 mill/uL (4.7-6.1); RED CELL DISTRIBUTION WIDTH 16.4 % (11.6-14.6)
[2018-08-12 18:33] LABS: HEMATOCRIT. 16.4 % (42.0-52.0); HEMOGLOBIN. 5.1 g/dL (14.0-18.0)
[2018-08-12 18:54] LABS: PLATELET ESTIMATE NORMAL
[2018-08-12] MEDS: SODIUM CHLORIDE 0.9% 1,000 ML IV SCH (21:00)
[2018-08-13] VITALS (13 sets, daily range): BP systolic 100–124; BP diastolic 59–95
[2018-08-13] MEDS: IPRATROPIUM/ALBUTEROL 0.5-3(2.5)MG/3ML NEB HHN SCH ×5 (00:10→20:06)
[2018-08-13] MEDS: TRAMADOL 50MG TABLET PO PRN ×3 (05:57→22:21)
[2018-08-13 06:49] LABS: HEMATOCRIT. 23.9 % (42.0-52.0); MEAN CORPUSCULAR HEMOGLOBIN 26.9 pg (28.0-32.0); MEAN CORPUSCULAR VOLUME 84.6 fL (80.0-94.0); MEAN PLATELET VOLUME 7.1 fl (7.4-10.4); PLATELET 323 x1000/uL (130-400); RED BLOOD CELL COUNT 2.82 mill/uL (4.7-6.1); RED CELL DISTRIBUTION WIDTH 16.3 % (11.6-14.6)
[2018-08-13 07:01] LABS: HEMOGLOBIN. 7.6 g/dL (14.0-18.0)
[2018-08-13] MEDS ORDERED: PREDNISONE 20MG TABLET PO SCH (09:00)
[2018-08-13] MEDS: PANTOPRAZOLE 40MG DR TABLET PO SCH (09:00)
[2018-08-13] MEDS: SODIUM CHLORIDE 0.9% 1,000 ML IV SCH ×2 (10:20→23:40)
[2018-08-13 10:26] LABS: TOTAL IRON BINDING CAPACITY 269 ug/dL (250-450)
[2018-08-13 10:30] LABS: PLATELET ESTIMATE NORMAL
[2018-08-13] MEDS: IPRATROPIUM/ALBUTEROL 0.5-3(2.5)MG/3ML NEB HHN PRN ×2 (10:51→17:56)
[2018-08-13] MEDS: METHYLPREDNISOLONE SOD SUCC 40 MG/ML VIAL IV SCH ×2 (15:44→20:53)
[2018-08-13 15:45] LABS: HEMATOCRIT 23.6 % (42.0-52.0); HEMOGLOBIN 7.5 g/dL (14.0-18.0)
[2018-08-13] MEDS: MONTELUKAST SODIUM 10MG TABLET PO SCH (16:35)
[2018-08-13 18:37] LABS: HEMATOCRIT 25.5 % (42.0-52.0); HEMOGLOBIN 8.1 g/dL (14.0-18.0)
[2018-08-13] MEDS: THEOPHYLLINE ANHYDROUS 80 MG/15 ML 120ML PO SCH (22:20)
[2018-08-14] VITALS (11 sets, daily range): BP systolic 107–137; BP diastolic 67–88
[2018-08-14] MEDS: IPRATROPIUM/ALBUTEROL 0.5-3(2.5)MG/3ML NEB HHN SCH ×7 (00:17→20:12)
[2018-08-14 02:33] LABS: HEMATOCRIT 22.3 % (42.0-52.0); HEMOGLOBIN 7.2 g/dL (14.0-18.0)
[2018-08-14] MEDS: THEOPHYLLINE ANHYDROUS 80 MG/15 ML 120ML PO SCH ×3 (05:29→21:27)
[2018-08-14] MEDS: TRAMADOL 50MG TABLET PO PRN (05:29)
[2018-08-14] MEDS: PANTOPRAZOLE 40MG DR TABLET PO SCH (09:50)
[2018-08-14] MEDS: METHYLPREDNISOLONE SOD SUCC 40 MG/ML VIAL IV SCH ×2 (09:50→21:27)
[2018-08-14 09:53] LABS: HEMATOCRIT. 23.5 % (42.0-52.0); HEMOGLOBIN. 7.5 g/dL (14.0-18.0); MEAN CORPUSCULAR HEMOGLOBIN 26.9 pg (28.0-32.0); MEAN CORPUSCULAR VOLUME 84.6 fL (80.0-94.0); MEAN PLATELET VOLUME 7.1 fl (7.4-10.4); PLATELET 385 x1000/uL (130-400); RED BLOOD CELL COUNT 2.77 mill/uL (4.7-6.1); RED CELL DISTRIBUTION WIDTH 15.6 % (11.6-14.6)
[2018-08-14] MEDS: SODIUM CHLORIDE 0.9% 1,000 ML IV SCH (13:33)
[2018-08-14] MEDS: HYDROCODONE/ACETAMINOPHEN 5/325MG TABLET PO PRN (15:16)
[2018-08-14] MEDS: MONTELUKAST SODIUM 10MG TABLET PO SCH (17:35)
[2018-08-14] MEDS: IPRATROPIUM/ALBUTEROL 0.5-3(2.5)MG/3ML NEB HHN PRN (20:16)
[2018-08-14 21:00] LABS: HEMATOCRIT. 24.3 % (42.0-52.0); HEMOGLOBIN. 7.9 g/dL (14.0-18.0); MEAN CORPUSCULAR HEMOGLOBIN 27.6 pg (28.0-32.0); MEAN CORPUSCULAR VOLUME 85.1 fL (80.0-94.0); MEAN PLATELET VOLUME 7.1 fl (7.4-10.4); PLATELET 354 x1000/uL (130-400); RED BLOOD CELL COUNT 2.86 mill/uL (4.7-6.1); RED CELL DISTRIBUTION WIDTH 15.7 % (11.6-14.6)
[2018-08-14 21:09] LABS: PROTHROMBIN TIME 10.3 sec (9.1-11.1)
[2018-08-14 22:21] LABS: PLATELET ESTIMATE NORMAL
[2018-08-15] VITALS: BP 108/68
[2018-08-15] MEDS: IPRATROPIUM/ALBUTEROL 0.5-3(2.5)MG/3ML NEB HHN SCH ×5 (00:19→22:07)
[2018-08-15] MEDS: HYDROCODONE/ACETAMINOPHEN 5/325MG TABLET PO PRN (00:33)
[2018-08-15 01:49] LABS: NUCLEATED RED BLOOD CELLS 3 /100 WBC
[2018-08-15 01:50] LABS: PLATELET ESTIMATE NORMAL
[2018-08-15 04:00] VITALS: BP 136/83
[2018-08-15] MEDS: SODIUM CHLORIDE 0.9% 1,000 ML IV SCH ×2 (06:28→15:40)
[2018-08-15 06:58] LABS: HEMATOCRIT. 22.6 % (42.0-52.0); HEMOGLOBIN. 7.2 g/dL (14.0-18.0); MEAN CORPUSCULAR HEMOGLOBIN 27.2 pg (28.0-32.0); MEAN CORPUSCULAR VOLUME 85.6 fL (80.0-94.0); MEAN PLATELET VOLUME 7.2 fl (7.4-10.4); PLATELET 351 x1000/uL (130-400); RED BLOOD CELL COUNT 2.64 mill/uL (4.7-6.1); RED CELL DISTRIBUTION WIDTH 15.3 % (11.6-14.6)
[2018-08-15] MEDS: PANTOPRAZOLE 40MG DR TABLET PO SCH (11:59)
[2018-08-15] MEDS: METHYLPREDNISOLONE SOD SUCC 40 MG/ML VIAL IV SCH ×2 (11:59→21:13)
[2018-08-15] MEDS: THEOPHYLLINE ANHYDROUS 80 MG/15 ML 120ML PO SCH ×3 (12:02→21:14)
[2018-08-15 15:35] LABS: NUCLEATED RED BLOOD CELLS 2 /100 WBC; PLATELET ESTIMATE NORMAL
[2018-08-15 16:00] VITALS: BP 120/74
[2018-08-15] MEDS: TRAMADOL 50MG TABLET PO PRN (17:24)
[2018-08-15] MEDS: MONTELUKAST SODIUM 10MG TABLET PO SCH (17:27)
[2018-08-15 20:00] VITALS: BP 105/68
[2018-08-15 20:22] LABS: HEMATOCRIT 23.8 % (42.0-52.0); HEMOGLOBIN 7.6 g/dL (14.0-18.0)
[2018-08-15 23:54] VITALS: BP 115/65
[2018-08-16] VITALS (10 sets, daily range): BP systolic 102–133; BP diastolic 55–79
[2018-08-16] MEDS: IPRATROPIUM/ALBUTEROL 0.5-3(2.5)MG/3ML NEB HHN SCH ×6 (01:34→21:28)
[2018-08-16] MEDS: GUAIFENESIN-DM 200MG-20MG/10ML UDC PO PRN (02:26)
[2018-08-16] MEDS: SODIUM CHLORIDE 0.9% 1,000 ML IV SCH ×2 (04:46→18:19)
[2018-08-16] MEDS: THEOPHYLLINE ANHYDROUS 80 MG/15 ML 120ML PO SCH ×3 (04:46→22:17)
[2018-08-16 06:54] LABS: MEAN CORPUSCULAR HEMOGLOBIN 27.7 pg (28.0-32.0); MEAN CORPUSCULAR VOLUME 85.2 fL (80.0-94.0); MEAN PLATELET VOLUME 6.9 fl (7.4-10.4); PLATELET 359 x1000/uL (130-400); RED BLOOD CELL COUNT 2.41 mill/uL (4.7-6.1); RED CELL DISTRIBUTION WIDTH 15.8 % (11.6-14.6)
[2018-08-16 06:59] LABS: CHLORIDE 109 mEq/L (98-107)
[2018-08-16 07:18] LABS: INR 1.1; PARTIAL THROMBOPLASTIN TIME 20.6 sec (23.4-31.0); PROTHROMBIN TIME 10.7 sec (9.1-11.1)
[2018-08-16] MEDS: PANTOPRAZOLE 40MG DR TABLET PO SCH (07:37)
[2018-08-16 07:59] LABS: HEMATOCRIT. 20.5 % (42.0-52.0); HEMOGLOBIN. 6.7 g/dL (14.0-18.0)
[2018-08-16] MEDS: METHYLPREDNISOLONE SOD SUCC 40 MG/ML VIAL IV SCH ×2 (10:27→21:10)
[2018-08-16] MEDS ORDERED: MIDAZOLAM HCL 5 MG/5 ML VIAL IV ONE (12:30)
[2018-08-16] MEDS ORDERED: FENTANYL CITRATE/PF 50MCG/ML 2ML VIAL ONE (12:37)
[2018-08-16] MEDS ORDERED: MIDAZOLAM HCL 5 MG/5 ML VIAL ONE (12:37)
[2018-08-16 13:50] LABS: NUCLEATED RED BLOOD CELLS 3 /100 WBC
[2018-08-16 13:51] LABS: PLATELET ESTIMATE NORMAL
[2018-08-16] MEDS ORDERED: SODIUM CHLORIDE 0.9% 10ML VIAL ONE (15:22)
[2018-08-16] MEDS ORDERED: SIMETHICONE 40 MG/0.6 ML 30ML ONE (15:22)
[2018-08-16] MEDS: HYDROCODONE/ACETAMINOPHEN 5/325MG TABLET PO PRN ×2 (18:19→23:45)
[2018-08-16] MEDS: MONTELUKAST SODIUM 10MG TABLET PO SCH (18:19)
[2018-08-17] VITALS (9 sets, daily range): BP systolic 120–146; BP diastolic 63–90
[2018-08-17] MEDS: IPRATROPIUM/ALBUTEROL 0.5-3(2.5)MG/3ML NEB HHN SCH ×6 (00:49→15:41)
[2018-08-17 01:01] LABS: HEMATOCRIT 27.9 % (42.0-52.0)
[2018-08-17] MEDS: THEOPHYLLINE ANHYDROUS 80 MG/15 ML 120ML PO SCH (05:26)
[2018-08-17 07:02] LABS: HEMATOCRIT. 29.8 % (42.0-52.0); HEMOGLOBIN. 9.7 g/dL (14.0-18.0); MEAN CORPUSCULAR HEMOGLOBIN 28.4 pg (28.0-32.0); MEAN CORPUSCULAR VOLUME 87.3 fL (80.0-94.0); PLATELET 404 x1000/uL (130-400); RED BLOOD CELL COUNT 3.41 mill/uL (4.7-6.1); RED CELL DISTRIBUTION WIDTH 16.1 % (11.6-14.6)
[2018-08-17] MEDS: PANTOPRAZOLE 40MG DR TABLET PO SCH (08:23)
[2018-08-17] MEDS: METHYLPREDNISOLONE SOD SUCC 40 MG/ML VIAL IV SCH (08:23)
[2018-08-17] MEDS: HYDROCODONE/ACETAMINOPHEN 5/325MG TABLET PO PRN (11:00)
[2018-08-17 11:58] LABS: NUCLEATED RED BLOOD CELLS 1 /100 WBC
[2018-08-17 11:59] LABS: PLATELET ESTIMATE SLIGHTLY INCREASED
== END 2018-08-17 16:37 | disposition home or self-care (01) | DRG 241 ==
LOC: ER 18:41 → 7WST 08-10 02:04 → EDBEDREQTM 08-10 02:07 → EDBEDREQ 08-10 02:07 → ENRESERV 08-10 20:20 → CANBEDREQ 08-11 16:39
PROVIDERS: ADMIT Internal Medicine; ATTEND Internal Medicine
PROC: 30233N1 Transfusion of Nonautologous Red Blood Cells into Peripheral Vein, Percutaneous Approach (ICD-10-PCS; principal; 2018-08-12)
PROC: 0DB68ZX Excision of Stomach, Via Natural or Artificial Opening Endoscopic, Diagnostic (ICD-10-PCS; 2018-08-16)
DX: K25.4 Chronic or unspecified gastric ulcer with hemorrhage (principal); J96.01 Acute respiratory failure with hypoxia; E43 Unspecified severe protein-calorie malnutrition; N17.9 Acute kidney failure, unspecified; J44.1 Chronic obstructive pulmonary disease with (acute) exacerbation; J45.901 Unspecified asthma with (acute) exacerbation; E87.8 Other disorders of electrolyte and fluid balance, not elsewhere classified; N18.3 Chronic kidney disease, stage 3 (moderate); F14.90 Cocaine use, unspecified, uncomplicated; D72.829 Elevated white blood cell count, unspecified; H26.9 Unspecified cataract; H54.3 Unqualified visual loss, both eyes; T38.0X5A Adverse effect of glucocorticoids and synthetic analogues, initial encounter; N40.0 Benign prostatic hyperplasia without lower urinary tract symptoms; G89.29 Other chronic pain; M25.511 Pain in right shoulder; D50.0 Iron deficiency anemia secondary to blood loss (chronic); F41.0 Panic disorder [episodic paroxysmal anxiety]; I12.9 Hypertensive chronic kidney disease with stage 1 through stage 4 chronic kidney disease, or unspecified chronic kidney disease; K29.60 Other gastritis without bleeding; K44.9 Diaphragmatic hernia without obstruction or gangrene; Z59.0 Homelessness; Z90.3 Acquired absence of stomach [part of]; Z68.20 Body mass index [BMI] 20.0-20.9, adult; Y92.89 Other specified places as the place of occurrence of the external cause; Z88.0 Allergy status to penicillin; Z79.899 Other long term (current) drug therapy
CPT/HCPCS: 36415; 71045; 80048; 80305; 82270; 82728; 83540; 83550; 83880; 84145; 84484; 85014; 85018; 85384; 86850; 86900; 86920; 88305; 88312; 88313; 93005; 94640; 96374; 99284; 99285; J2250; J2270; J2405; J2920; J2930; J3010; J7030; J7040; J7050; J7512; J7611; J7620; P9016

== ENCOUNTER 2018-08-18 18:33 | Inpatient (IN) | payer MEDICARE, MEDICAID ==
[~2018-08-18] VITALS: Ht 170.2 cm; Wt 65.1 kg
[2018-08-18] MEDS ORDERED: SODIUM CHLORIDE 0.9% 1,000 ML IV ONE (19:01)
[2018-08-18 19:54] LABS: HEMATOCRIT. 36.4 % (42.0-52.0); HEMOGLOBIN. 11.5 g/dL (14.0-18.0); MEAN CORPUSCULAR HEMOGLOBIN 28.2 pg (28.0-32.0); MEAN CORPUSCULAR VOLUME 89.2 fL (80.0-94.0); MEAN PLATELET VOLUME 7.1 fl (7.4-10.4); PLATELET 488 x1000/uL (130-400); RED BLOOD CELL COUNT 4.08 mill/uL (4.7-6.1); RED CELL DISTRIBUTION WIDTH 16.6 % (11.6-14.6)
[2018-08-18 19:57] LABS: CHLORIDE 102 mEq/L (98-107); PROTHROMBIN TIME 9.8 sec (9.1-11.1)
[2018-08-18 20:20] LABS: PLATELET ESTIMATE INCREASED
[2018-08-18 21:48] LABS: HEMATOCRIT. 29.7 % (42.0-52.0); HEMOGLOBIN. 9.4 g/dL (14.0-18.0); MEAN CORPUSCULAR HEMOGLOBIN 28.2 pg (28.0-32.0); MEAN CORPUSCULAR VOLUME 89.3 fL (80.0-94.0); MEAN PLATELET VOLUME 6.7 fl (7.4-10.4); PLATELET 393 x1000/uL (130-400); RED BLOOD CELL COUNT 3.33 mill/uL (4.7-6.1); RED CELL DISTRIBUTION WIDTH 16.5 % (11.6-14.6)
[2018-08-18 22:24] LABS: PLATELET ESTIMATE NORMAL
[2018-08-18] MEDS ORDERED: DOCUSATE SODIUM 100MG CAPSULE PO PRN (23:00)
[2018-08-18] MEDS ORDERED: DIPHENHYDRAMINE 50MG/ML VIAL IV PRN (23:00)
[2018-08-18] MEDS ORDERED: CLONIDINE 0.1MG TABLET PO PRN (23:00)
[2018-08-18] MEDS ORDERED: LORAZEPAM 2MG/ML CPJ IV PRN (23:00)
[2018-08-18] MEDS ORDERED: ONDANSETRON HCL 4MG/2ML INJ IV PRN (23:00)
[2018-08-18] MEDS ORDERED: MAGNESIUM/ALUMINUM HYDROXIDE/SIMETHICONE 30ML UDC PO PRN (23:00)
[2018-08-18] MEDS ORDERED: GUAIFENESIN 200MG/10ML SUGAR FREE UDC PO PRN (23:00)
[2018-08-18] MEDS ORDERED: ACETAMINOPHEN 325MG TABLET PO PRN (23:00)
[2018-08-18] MEDS ORDERED: HYDRALAZINE 20MG/ML VIAL IV PRN (23:00)
[2018-08-18] MEDS ORDERED: HYDROMORPHONE HCL/PF 2MG/ML CPJ IV PRN (23:59)
[2018-08-19] VITALS (7 sets, daily range): BP systolic 91–122; BP diastolic 53–75
[2018-08-19] MEDS ORDERED: LEVOFLOXACIN 500MG PREMIX 100 ML IV SCH (01:00)
[2018-08-19] MEDS: PANTOPRAZOLE SODIUM 40 MG/VIAL IV SCH ×3 (01:12→18:22)
[2018-08-19] MEDS: SODIUM CHLORIDE 0.9% INJ 3ML FLUSH IVF SCH ×3 (05:24→21:35)
[2018-08-19 06:25] LABS: HEMATOCRIT. 29.5 % (42.0-52.0); HEMOGLOBIN. 9.5 g/dL (14.0-18.0); MEAN CORPUSCULAR HEMOGLOBIN 28.3 pg (28.0-32.0); MEAN CORPUSCULAR VOLUME 87.9 fL (80.0-94.0); MEAN PLATELET VOLUME 6.9 fl (7.4-10.4); PLATELET 389 x1000/uL (130-400); RED BLOOD CELL COUNT 3.36 mill/uL (4.7-6.1); RED CELL DISTRIBUTION WIDTH 16.6 % (11.6-14.6)
[2018-08-19 06:44] LABS: CHLORIDE 108 mEq/L (98-107)
[2018-08-19 07:09] LABS: CREATINE KINASE 46 IU/L (39-308)
[2018-08-19 07:12] LABS: CREATINE KINASE MB FRACTION 4.9 ng/mL (0.5-3.6)
[2018-08-19] MEDS: IPRATROPIUM/ALBUTEROL 0.5-3(2.5)MG/3ML NEB INH PRN ×3 (10:24→21:57)
[2018-08-19] MEDS: SUCRALFATE 1 G/10 ML UDC PO SCH ×3 (13:20→21:32)
[2018-08-19 14:35] LABS: PLATELET ESTIMATE NORMAL
[2018-08-19 15:12] LABS: CLARITY URINE CLEAR (CLEAR); COLOR URINE YELLOW (YELLOW); KETONES URINE NEGATIVE (NEGATIVE); LEUKOCYTE ESTERASE URINE NEGATIVE (NEGATIVE); NITRITE URINE NEGATIVE (NEGATIVE); OCCULT BLOOD URINE NEGATIVE (NEGATIVE); PH URINE 6.5 (4.5-8.0); PROTEIN URINE TRACE (NEGATIVE); SPECIFIC GRAVITY URINE 1.016 (1.005-1.030); UROBILINOGEN URINE 0.2 E.U./dL (0.2-1.0)
[2018-08-19 15:30] LABS: CREATINE KINASE MB FRACTION 6.2 ng/mL (0.5-3.6)
[2018-08-19] MEDS: LEVOFLOXACIN 250MG PREMIX 50 ML IV SCH (21:33)
[2018-08-20] VITALS: BP 118/60
[2018-08-20] MEDS: IPRATROPIUM/ALBUTEROL 0.5-3(2.5)MG/3ML NEB INH PRN ×2 (02:08→20:05)
[2018-08-20 04:00] VITALS: BP 115/63
[2018-08-20] MEDS: SODIUM CHLORIDE 0.9% INJ 3ML FLUSH IVF SCH ×3 (06:00→21:03)
[2018-08-20 07:10] LABS: HEMATOCRIT. 31.7 % (42.0-52.0); HEMOGLOBIN. 9.7 g/dL (14.0-18.0); MEAN CORPUSCULAR HEMOGLOBIN 28.1 pg (28.0-32.0); MEAN CORPUSCULAR VOLUME 91.7 fL (80.0-94.0); MEAN PLATELET VOLUME 7.5 fl (7.4-10.4); PLATELET 344 x1000/uL (130-400); RED BLOOD CELL COUNT 3.46 mill/uL (4.7-6.1); RED CELL DISTRIBUTION WIDTH 17.1 % (11.6-14.6)
[2018-08-20] MEDS: SUCRALFATE 1 G/10 ML UDC PO SCH ×4 (07:19→20:56)
[2018-08-20 08:00] VITALS: BP 101/58
[2018-08-20] MEDS: PANTOPRAZOLE SODIUM 40 MG/VIAL IV SCH ×2 (09:04→16:19)
[2018-08-20 11:55] VITALS: BP 105/47
[2018-08-20 14:27] LABS: PLATELET ESTIMATE NORMAL
[2018-08-20 16:00] VITALS: BP 108/67
[2018-08-20] MEDS: HYDROCODONE/ACETAMINOPHEN 10/325MG TABLET PO PRN (16:20)
[2018-08-20 20:00] VITALS: BP 103/65
[2018-08-20] MEDS: LEVOFLOXACIN 250MG PREMIX 50 ML IV SCH (21:03)
[2018-08-21] VITALS: BP 110/71
[2018-08-21 04:00] VITALS: BP 115/68
[2018-08-21] MEDS: IPRATROPIUM/ALBUTEROL 0.5-3(2.5)MG/3ML NEB INH PRN ×3 (05:10→19:11)
[2018-08-21] MEDS: SODIUM CHLORIDE 0.9% INJ 3ML FLUSH IVF SCH ×2 (05:27→20:58)
[2018-08-21] MEDS: SUCRALFATE 1 G/10 ML UDC PO SCH ×4 (06:07→20:58)
[2018-08-21 06:19] LABS: MEAN CORPUSCULAR HEMOGLOBIN 28.7 pg (28.0-32.0); MEAN CORPUSCULAR VOLUME 88.8 fL (80.0-94.0); MEAN PLATELET VOLUME 6.9 fl (7.4-10.4); PLATELET 375 x1000/uL (130-400); RED BLOOD CELL COUNT 3.49 mill/uL (4.7-6.1); RED CELL DISTRIBUTION WIDTH 16.7 % (11.6-14.6)
[2018-08-21] MEDS: HYDROCODONE/ACETAMINOPHEN 10/325MG TABLET PO PRN ×2 (06:58→18:54)
[2018-08-21 08:00] VITALS: BP_SYST 94; BP_SYST 99; BP_DIAS 58; BP_DIAS 62
[2018-08-21] MEDS: PANTOPRAZOLE SODIUM 40 MG/VIAL IV SCH ×2 (09:05→17:00)
[2018-08-21] MEDS: SODIUM CHLORIDE 0.45% 1,000 ML IV SCH ×2 (09:05→20:57)
[2018-08-21 12:00] VITALS: BP 99/62
[2018-08-21 14:15] LABS: PLATELET ESTIMATE NORMAL
[2018-08-21 16:00] VITALS: BP 97/55
[2018-08-21 20:00] VITALS: BP 109/65
[2018-08-21] MEDS: LEVOFLOXACIN 250MG PREMIX 50 ML IV SCH (21:10)
[2018-08-22] VITALS (7 sets, daily range): BP systolic 92–162; BP diastolic 51–91
[2018-08-22] MEDS: SODIUM CHLORIDE 0.45% 1,000 ML IV SCH ×3 (04:00→13:18)
[2018-08-22] MEDS: SUCRALFATE 1 G/10 ML UDC PO SCH ×4 (05:37→20:55)
[2018-08-22] MEDS: SODIUM CHLORIDE 0.9% INJ 3ML FLUSH IVF SCH ×3 (05:37→20:55)
[2018-08-22] MEDS: HYDROCODONE/ACETAMINOPHEN 10/325MG TABLET PO PRN ×3 (05:37→17:10)
[2018-08-22] MEDS: PANTOPRAZOLE SODIUM 40 MG/VIAL IV SCH ×2 (08:48→17:10)
[2018-08-22] MEDS: IPRATROPIUM/ALBUTEROL 0.5-3(2.5)MG/3ML NEB INH PRN ×2 (10:44→21:38)
[2018-08-22] MEDS: METHYLPREDNISOLONE SOD SUCC 125 MG/2 ML VIAL IV SCH ×2 (11:15→20:55)
[2018-08-22 13:25] LABS: HEMATOCRIT. 29.6 % (42.0-52.0); HEMOGLOBIN. 9.5 g/dL (14.0-18.0); MEAN CORPUSCULAR HEMOGLOBIN 28.2 pg (28.0-32.0); MEAN CORPUSCULAR VOLUME 88.1 fL (80.0-94.0); MEAN PLATELET VOLUME 6.5 fl (7.4-10.4); PLATELET 365 x1000/uL (130-400); RED BLOOD CELL COUNT 3.36 mill/uL (4.7-6.1); RED CELL DISTRIBUTION WIDTH 16.3 % (11.6-14.6)
[2018-08-22 13:51] LABS: CHLORIDE 101 mEq/L (98-107)
[2018-08-22] MEDS: LEVOFLOXACIN 500MG PREMIX 100 ML IV SCH (17:09)
[2018-08-23] VITALS (7 sets, daily range): BP systolic 90–130; BP diastolic 52–78
[2018-08-23] MEDS: SUCRALFATE 1 G/10 ML UDC PO SCH ×4 (05:59→20:40)
[2018-08-23] MEDS: SODIUM CHLORIDE 0.9% INJ 3ML FLUSH IVF SCH ×3 (06:00→22:00)
[2018-08-23 06:32] LABS: HEMATOCRIT. 28.9 % (42.0-52.0); HEMOGLOBIN. 9.1 g/dL (14.0-18.0); MEAN CORPUSCULAR HEMOGLOBIN 27.9 pg (28.0-32.0); MEAN CORPUSCULAR VOLUME 88.3 fL (80.0-94.0); MEAN PLATELET VOLUME 7.4 fl (7.4-10.4); PLATELET 395 x1000/uL (130-400); RED BLOOD CELL COUNT 3.27 mill/uL (4.7-6.1); RED CELL DISTRIBUTION WIDTH 16.6 % (11.6-14.6)
[2018-08-23 06:35] LABS: CHLORIDE 101 mEq/L (98-107)
[2018-08-23] MEDS: IPRATROPIUM/ALBUTEROL 0.5-3(2.5)MG/3ML NEB INH PRN (06:59)
[2018-08-23] MEDS: PANTOPRAZOLE SODIUM 40 MG/VIAL IV SCH ×2 (08:55→16:47)
[2018-08-23] MEDS: METHYLPREDNISOLONE SOD SUCC 125 MG/2 ML VIAL IV SCH ×2 (08:55→16:47)
[2018-08-23] MEDS: SODIUM CHLORIDE 0.45% 1,000 ML IV SCH ×3 (08:56→20:00)
[2018-08-23] MEDS: HYDROCODONE/ACETAMINOPHEN 10/325MG TABLET PO PRN (08:56)
[2018-08-23] MEDS: IPRATROPIUM/ALBUTEROL 0.5-3(2.5)MG/3ML NEB HHN SCH ×5 (09:51→20:52)
[2018-08-23] MEDS ORDERED: HYDROCODONE/ACETAMINOPHEN 10/325MG TABLET PO PRN (11:00)
[2018-08-23 11:24] LABS: PLATELET ESTIMATE NORMAL
[2018-08-23 17:24] LABS: PLATELET ESTIMATE NORMAL
[2018-08-23] MEDS: LEVOFLOXACIN 500MG PREMIX 100 ML IV SCH (18:06)
[2018-08-24] VITALS: BP 102/58
[2018-08-24] MEDS: IPRATROPIUM/ALBUTEROL 0.5-3(2.5)MG/3ML NEB HHN SCH ×4 (00:37→12:30)
[2018-08-24] MEDS: METHYLPREDNISOLONE SOD SUCC 125 MG/2 ML VIAL IV SCH ×4 (01:08→09:00)
[2018-08-24 04:00] VITALS: BP 133/80
[2018-08-24] MEDS: SODIUM CHLORIDE 0.45% 1,000 ML IV SCH (06:00)
[2018-08-24] MEDS: SODIUM CHLORIDE 0.9% INJ 3ML FLUSH IVF SCH ×2 (06:00→14:00)
[2018-08-24] MEDS: SUCRALFATE 1 G/10 ML UDC PO SCH ×3 (07:10→12:10)
[2018-08-24 08:00] VITALS: BP 111/74
[2018-08-24] MEDS: PANTOPRAZOLE SODIUM 40 MG/VIAL IV SCH ×2 (08:35→08:37)
[2018-08-24 12:24] VITALS: BP 110/60
[2018-08-24] MEDS ORDERED: INSULIN LISPRO 100 UNITS/ML SUBCUT NR (13:00)
== END 2018-08-24 15:50 | disposition home or self-care (01) | DRG 241 ==
LOC: ER 18:33 → EDBEDREQ 19:07 → 8WST 22:20 → EDBEDREQ 22:24 → EDBEDREQTM 22:24 → ENRESERV 23:12
PROVIDERS: ADMIT Internal Medicine; ATTEND Internal Medicine
PROC: 0DB68ZX Excision of Stomach, Via Natural or Artificial Opening Endoscopic, Diagnostic (ICD-10-PCS; principal; 2018-08-19)
DX: K29.61 Other gastritis with bleeding (principal); N17.0 Acute kidney failure with tubular necrosis; J69.0 Pneumonitis due to inhalation of food and vomit; G93.41 Metabolic encephalopathy; R65.10 Systemic inflammatory response syndrome (SIRS) of non-infectious origin without acute organ dysfunction; I12.0 Hypertensive chronic kidney disease with stage 5 chronic kidney disease or end stage renal disease; N18.6 End stage renal disease; K25.4 Chronic or unspecified gastric ulcer with hemorrhage; D50.0 Iron deficiency anemia secondary to blood loss (chronic); J44.9 Chronic obstructive pulmonary disease, unspecified; E86.0 Dehydration; J45.909 Unspecified asthma, uncomplicated; E86.9 Volume depletion, unspecified; J98.8 Other specified respiratory disorders; D72.829 Elevated white blood cell count, unspecified; H54.8 Legal blindness, as defined in USA; K44.9 Diaphragmatic hernia without obstruction or gangrene; N18.9 Chronic kidney disease, unspecified; Z79.51 Long term (current) use of inhaled steroids; Z79.899 Other long term (current) drug therapy; Z87.891 Personal history of nicotine dependence; Z90.3 Acquired absence of stomach [part of]; Z88.0 Allergy status to penicillin
CPT/HCPCS: 36415; 71045; 76770; 80048; 82550; 82553; 82962; 84484; 86850; 86900; 93005; 93970; 94640; 96360; 96361; 99291; C1893; C9113; J1815; J1956; J2930; J7030; J7040; J7620

== ENCOUNTER 2018-08-26 20:45 | Inpatient (IN) | payer MEDICARE, MEDICAID ==
[~2018-08-26] VITALS: Ht 175.3 cm; Wt 61.2 kg
[2018-08-26] MEDS ORDERED: METHYLPREDNISOLONE SOD SUCC 125 MG/2 ML VIAL IV STA (23:47)
[2018-08-26] MEDS ORDERED: IPRATROPIUM BROMIDE (0.02%) 0.5MG/2.5ML NEB HHN STA (23:47)
[2018-08-27 00:24] LABS: BG BASE EXCESS 6.4 mmol/L (-2.0-2.0); BG CARBOXYHEMOGLOBIN 1.2 % (0.5-1.5); BG FRACTION INSPIRED OXYGEN 28; BG HCO3 ACT 32.5 mmol/L (22.0-26.0); BG METHEMOGLOBIN 0.2 % (0.0-1.5); BG OXYGEN SATURATION 95.9 % (92.0-98.5); BG OXYHEMOGLOBIN 94.6 % (94.0-97.0); BG PCO2 52.5 mmHg (35.0-45.0); BG PH 7.409 (7.350-7.450); BG PO2 83.1 mmHg (75.0-100.0); BG SAMPLE SITE RIGHT RADIAL; BG TOTAL HEMOGLOBIN 13.2 g/dL (12.0-18.0); BG VENT MODE NASAL CANNULA
[2018-08-27] MEDS: ALBUTEROL (0.083%) 2.5MG/3ML NEB HHN SCH ×3 (00:26→01:30)
[2018-08-27 00:33] LABS: HEMATOCRIT. 33.7 % (42.0-52.0); HEMOGLOBIN. 10.8 g/dL (14.0-18.0); MEAN CORPUSCULAR HEMOGLOBIN 27.8 pg (28.0-32.0); MEAN CORPUSCULAR VOLUME 86.6 fL (80.0-94.0); MEAN PLATELET VOLUME 7.6 fl (7.4-10.4); PLATELET 453 x1000/uL (130-400); RED BLOOD CELL COUNT 3.89 mill/uL (4.7-6.1)
[2018-08-27 01:12] LABS: PLATELET ESTIMATE NORMAL
[2018-08-27 02:12] LABS: CHLORIDE 100 mEq/L (98-107)
[2018-08-27 08:00] VITALS: BP 94/60
[2018-08-27] MEDS ORDERED: IPRATROPIUM/ALBUTEROL 0.5-3(2.5)MG/3ML NEB HHN PRN (10:45)
[2018-08-27 12:00] VITALS: BP 100/60
[2018-08-27 12:10] VITALS: BP 100/90
[2018-08-27] MEDS: SODIUM CHLORIDE 0.45% 1,000 ML IV SCH (12:50)
[2018-08-27] MEDS: SUCRALFATE 1 G/10 ML UDC PO SCH ×3 (12:50→20:58)
[2018-08-27] MEDS: IPRATROPIUM/ALBUTEROL 0.5-3(2.5)MG/3ML NEB HHN SCH ×3 (13:23→20:44)
[2018-08-27] MEDS: BUDESONIDE 0.5MG/2ML NEB HHN SCH ×2 (13:24→20:46)
[2018-08-27 16:00] VITALS: BP 99/67
[2018-08-27] MEDS: HYDROCODONE/ACETAMINOPHEN 5/325MG TABLET PO PRN (16:09)
[2018-08-27] MEDS: THEOPHYLLINE ANHYDROUS 80 MG/15 ML 120ML PO SCH ×2 (18:15→20:59)
[2018-08-27 20:00] VITALS: BP 102/63
[2018-08-27 22:58] LABS: CLARITY URINE CLEAR (CLEAR); COLOR URINE YELLOW (YELLOW); KETONES URINE NEGATIVE (NEGATIVE); LEUKOCYTE ESTERASE URINE NEGATIVE (NEGATIVE); NITRITE URINE NEGATIVE (NEGATIVE); OCCULT BLOOD URINE NEGATIVE (NEGATIVE); PROTEIN URINE TRACE (NEGATIVE); SPECIFIC GRAVITY URINE 1.019 (1.005-1.030); UROBILINOGEN URINE 0.2 E.U./dL (0.2-1.0)
[2018-08-27] MEDS ORDERED: LEVOFLOXACIN 500MG PREMIX 100 ML IV SCH (23:15)
[2018-08-28] VITALS: BP 104/57
[2018-08-28] MEDS ORDERED: LEVOFLOXACIN 500MG PREMIX 100 ML IV SCH
[2018-08-28] MEDS: SODIUM CHLORIDE 0.45% 1,000 ML IV SCH ×2 (00:12→14:17)
[2018-08-28] MEDS: IPRATROPIUM/ALBUTEROL 0.5-3(2.5)MG/3ML NEB HHN SCH ×4 (00:59→13:12)
[2018-08-28 04:00] VITALS: BP 116/63
[2018-08-28] MEDS: HYDROCODONE/ACETAMINOPHEN 5/325MG TABLET PO PRN (04:43)
[2018-08-28] MEDS: THEOPHYLLINE ANHYDROUS 80 MG/15 ML 120ML PO SCH ×2 (05:25→14:17)
[2018-08-28 06:34] LABS: HEMATOCRIT. 28.7 % (42.0-52.0); HEMOGLOBIN. 9.1 g/dL (14.0-18.0); MEAN CORPUSCULAR HEMOGLOBIN 27.4 pg (28.0-32.0); MEAN CORPUSCULAR VOLUME 86.4 fL (80.0-94.0); PLATELET 398 x1000/uL (130-400); RED BLOOD CELL COUNT 3.32 mill/uL (4.7-6.1); RED CELL DISTRIBUTION WIDTH 16.8 % (11.6-14.6)
[2018-08-28] MEDS ORDERED: OMEPRAZOLE 20MG CAPSULE EXTENDED RELEASE PO SCH (07:40)
[2018-08-28 08:00] VITALS: BP 91/65
[2018-08-28] MEDS: SUCRALFATE 1 G/10 ML UDC PO SCH ×2 (09:30→14:16)
[2018-08-28 12:00] VITALS: BP 101/65
[2018-08-28 12:14] LABS: PLATELET ESTIMATE NORMAL
[2018-08-28 15:55] VITALS: BP 107/72
[2018-08-28 16:00] VITALS: BP 107/72
[2018-08-28] MEDS: BUDESONIDE 0.5MG/2ML NEB HHN SCH (16:24)
[2018-08-28] MEDS ORDERED: LEVOFLOXACIN 250MG PREMIX 50 ML IV SCH (21:00)
[2018-08-29] MEDS ORDERED: THEO80EL3 PO (03:46)
== END 2018-08-28 17:33 | disposition home or self-care (01) | DRG 469 ==
LOC: ER 20:45 → 7WST 08-27 05:42 → EDBEDREQTM 08-27 05:44 → EDBEDREQDT 08-27 05:44 → EDBEDREQ 08-27 05:44 → ENRESERV 08-27 07:48
PROVIDERS: ADMIT Internal Medicine; ATTEND Internal Medicine
DX: N17.0 Acute kidney failure with tubular necrosis (principal); E43 Unspecified severe protein-calorie malnutrition; J44.9 Chronic obstructive pulmonary disease, unspecified; D64.9 Anemia, unspecified; F17.200 Nicotine dependence, unspecified, uncomplicated; Z87.11 Personal history of peptic ulcer disease; Z88.0 Allergy status to penicillin; Z68.1 Body mass index [BMI] 19.9 or less, adult
CPT/HCPCS: 36415; 36600; 71045; 80048; 82375; 82805; 83605; 83880; 84145; 84484; 93005; 94640; 96374; 99291; C1893; J1956; J2930; J7611; J7620; J7626

== ENCOUNTER 2018-08-28 17:26 | Inpatient (IN) | payer MEDICARE, MEDICAID ==
[~2018-08-28] VITALS: Ht 175.3 cm; Wt 63.5 kg
[2018-08-28] MEDS ORDERED: METHYLPREDNISOLONE SOD SUCC 125 MG/2 ML VIAL IV STA (19:18)
[2018-08-28] MEDS ORDERED: IPRATROPIUM BROMIDE (0.02%) 0.5MG/2.5ML NEB HHN STA (19:18)
[2018-08-28 19:38] LABS: CLARITY URINE CLEAR (CLEAR); COLOR URINE YELLOW (YELLOW); KETONES URINE NEGATIVE (NEGATIVE); LEUKOCYTE ESTERASE URINE NEGATIVE (NEGATIVE); NITRITE URINE NEGATIVE (NEGATIVE); OCCULT BLOOD URINE NEGATIVE (NEGATIVE); PH URINE 7.5 (4.5-8.0); PROTEIN URINE 1+ (NEGATIVE); UROBILINOGEN URINE 0.2 E.U./dL (0.2-1.0)
[2018-08-28] MEDS: ALBUTEROL (0.083%) 2.5MG/3ML NEB HHN SCH (19:42)
[2018-08-28 19:46] LABS: *AMPHETAMINES SCREEN URINE NEGATIVE (NEGATIVE); *BARBITURATES SCREEN URINE NEGATIVE (NEGATIVE)
[2018-08-28 19:47] LABS: *BENZODIAZEPINES SCREEN URINE NEGATIVE (NEGATIVE); *COCAINE SCREEN URINE PRESUMTIVE POSITIVE (NEGATIVE); CANNABINOID URINE SCREEN NEGATIVE (NEGATIVE); METHADONE URINE SCREEN NEGATIVE (NEGATIVE); OPIATES URINE SCREEN PRESUMTIVE POSITIVE (NEGATIVE); PHENCYCLIDINE URINE SCREEN NEGATIVE (NEGATIVE)
[2018-08-28 20:20] LABS: HEMATOCRIT. 35.6 % (42.0-52.0); HEMOGLOBIN. 11.2 g/dL (14.0-18.0); MEAN CORPUSCULAR HEMOGLOBIN 27.7 pg (28.0-32.0); MEAN CORPUSCULAR VOLUME 88.3 fL (80.0-94.0); MEAN PLATELET VOLUME 7.4 fl (7.4-10.4); PLATELET 392 x1000/uL (130-400); RED BLOOD CELL COUNT 4.04 mill/uL (4.7-6.1); RED CELL DISTRIBUTION WIDTH 16.9 % (11.6-14.6)
[2018-08-28 20:23] LABS: CHLORIDE 99 mEq/L (98-107)
[2018-08-28 20:53] LABS: PLATELET ESTIMATE NORMAL
[2018-08-28 21:36] LABS: BG BASE EXCESS 2.8 mmol/L (-2.0-2.0); BG CARBOXYHEMOGLOBIN 0.2 % (0.5-1.5); BG DEOXYHEMOGLOBIN 12.1 % (0.0-5.0); BG FRACTION INSPIRED OXYGEN 28; BG HCO3 ACT 26.1 mmol/L (22.0-26.0); BG METHEMOGLOBIN 0.3 % (0.0-1.5); BG OXYGEN SATURATION 87.8 % (92.0-98.5); BG OXYHEMOGLOBIN 87.4 % (94.0-97.0); BG PCO2 35.2 mmHg (35.0-45.0); BG PH 7.488 (7.350-7.450); BG PO2 52.6 mmHg (75.0-100.0); BG SAMPLE SITE LEFT RADIAL; BG TOTAL HEMOGLOBIN 9.7 g/dL (12.0-18.0); BG VENT MODE NASAL CANNULA
[2018-08-28] MEDS ORDERED: ACETAMINOPHEN 325MG TABLET PO PRN (23:30)
[2018-08-28] MEDS ORDERED: CLONIDINE 0.1MG TABLET PO PRN (23:30)
[2018-08-28] MEDS ORDERED: GUAIFENESIN 200MG/10ML SUGAR FREE UDC PO PRN (23:30)
[2018-08-28] MEDS ORDERED: ONDANSETRON HCL 4MG/2ML INJ IV PRN (23:30)
[2018-08-28] MEDS ORDERED: IPRATROPIUM/ALBUTEROL 0.5-3(2.5)MG/3ML NEB INH PRN (23:30)
[2018-08-28] MEDS ORDERED: MAGNESIUM/ALUMINUM HYDROXIDE/SIMETHICONE 30ML UDC PO PRN (23:30)
[2018-08-28] MEDS ORDERED: LORAZEPAM 0.5MG TABLET PO PRN (23:30)
[2018-08-29 03:22] VITALS: BP 122/80
[2018-08-29 03:44] VITALS: BP 122/80
[2018-08-29] MEDS ORDERED: THEO80EL3 PO (03:46)
[2018-08-29] MEDS: IPRATROPIUM/ALBUTEROL 0.5-3(2.5)MG/3ML NEB HHN SCH ×5 (05:51→20:00)
[2018-08-29] MEDS: SODIUM CHLORIDE 0.9% INJ 3ML FLUSH IVF SCH ×3 (06:03→21:00)
[2018-08-29 08:00] VITALS: BP 116/72
[2018-08-29] MEDS: ALBUTEROL (0.083%) 2.5MG/3ML NEB HHN SCH (08:40)
[2018-08-29] MEDS ORDERED: FAMOTIDINE 20MG TABLET PO SCH (09:00)
[2018-08-29] MEDS ORDERED: PREDNISONE 20MG TABLET PO SCH (09:00)
[2018-08-29] MEDS: FAMOTIDINE 20MG TABLET PO SCH (09:48)
[2018-08-29] MEDS: TAMSULOSIN HCL 0.4MG SR CAPSULE PO SCH (09:48)
[2018-08-29] MEDS: BUDESONIDE 0.5MG/2ML NEB HHN SCH ×2 (10:04→20:35)
[2018-08-29 12:00] VITALS: BP 118/76
[2018-08-29 16:00] VITALS: BP 120/74
[2018-08-29 20:00] VITALS: BP 132/66
[2018-08-29] MEDS ORDERED: PREDNISONE 20MG TABLET PO NR (20:30)
[2018-08-29] MEDS: IBUPROFEN 400MG TABLET PO PRN (21:05)
[2018-08-30] VITALS (7 sets, daily range): BP systolic 94–120; BP diastolic 50–69
[2018-08-30] MEDS: IPRATROPIUM/ALBUTEROL 0.5-3(2.5)MG/3ML NEB HHN SCH ×5 (00:14→21:33)
[2018-08-30] MEDS: SODIUM CHLORIDE 0.9% INJ 3ML FLUSH IVF SCH ×3 (05:37→21:33)
[2018-08-30 07:53] LABS: BASOPHILS % 0.2 % (0.0-2.0); HEMOGLOBIN. 8.1 g/dL (14.0-18.0); LYMPHOCYTES % 9.8 % (20.0-50.0); MEAN CORPUSCULAR HEMOGLOBIN 27.1 pg (28.0-32.0); MEAN PLATELET VOLUME 7.1 fl (7.4-10.4); PLATELET 358 x1000/uL (130-400); RED BLOOD CELL COUNT 2.98 mill/uL (4.7-6.1); RED CELL DISTRIBUTION WIDTH 17.1 % (11.6-14.6)
[2018-08-30 07:57] LABS: PHOSPHORUS 3.2 mg/dL (2.5-4.9)
[2018-08-30] MEDS ORDERED: PREDNISONE 20MG TABLET PO SCH (09:00)
[2018-08-30] MEDS: FAMOTIDINE 20MG TABLET PO SCH ×2 (09:33→21:26)
[2018-08-30] MEDS: TAMSULOSIN HCL 0.4MG SR CAPSULE PO SCH (09:35)
[2018-08-30] MEDS ORDERED: DEXTROSE 50% WATER 50ML SYRINGE IV PRN (14:15)
[2018-08-30] MEDS: BLOOD SUGAR DIAGNOSTIC STRIP TEST SCH ×2 (17:25→21:27)
[2018-08-30] MEDS: INSULIN LISPRO 100 UNITS/ML SUBCUT SCH ×2 (18:02→21:00)
[2018-08-30] MEDS: BUDESONIDE 0.5MG/2ML NEB HHN SCH (21:27)
[2018-08-30] MEDS: IBUPROFEN 400MG TABLET PO PRN (21:39)
[2018-08-31] MEDS: IPRATROPIUM/ALBUTEROL 0.5-3(2.5)MG/3ML NEB HHN SCH ×6 (01:06→20:48)
[2018-08-31 04:00] VITALS: BP 118/75
[2018-08-31] MEDS: SODIUM CHLORIDE 0.9% INJ 3ML FLUSH IVF SCH ×3 (07:11→21:49)
[2018-08-31] MEDS: INSULIN LISPRO 100 UNITS/ML SUBCUT SCH ×4 (07:50→20:29)
[2018-08-31 08:00] VITALS: BP 96/54
[2018-08-31] MEDS: TAMSULOSIN HCL 0.4MG SR CAPSULE PO SCH (08:59)
[2018-08-31] MEDS: BUDESONIDE 0.5MG/2ML NEB HHN SCH ×2 (09:00→20:52)
[2018-08-31] MEDS: FAMOTIDINE 20MG TABLET PO SCH ×2 (09:09→20:24)
[2018-08-31] MEDS: PREDNISONE 20MG TABLET PO SCH (09:09)
[2018-08-31] MEDS: IBUPROFEN 400MG TABLET PO PRN (09:10)
[2018-08-31] MEDS: BLOOD SUGAR DIAGNOSTIC STRIP TEST SCH ×3 (12:08→20:29)
[2018-08-31 12:29] VITALS: BP 103/53
[2018-08-31 16:58] VITALS: BP 101/54
[2018-08-31 20:00] VITALS: BP 117/70
[2018-09-01] VITALS: BP 103/67
[2018-09-01] MEDS: IPRATROPIUM/ALBUTEROL 0.5-3(2.5)MG/3ML NEB HHN SCH ×5 (00:11→15:25)
[2018-09-01 06:00] VITALS: BP 116/65
[2018-09-01] MEDS: SODIUM CHLORIDE 0.9% INJ 3ML FLUSH IVF SCH ×2 (06:04→13:06)
[2018-09-01] MEDS: BLOOD SUGAR DIAGNOSTIC STRIP TEST SCH ×2 (06:43→13:03)
[2018-09-01 08:00] VITALS: BP 107/70
[2018-09-01] MEDS: INSULIN LISPRO 100 UNITS/ML SUBCUT SCH ×2 (08:11→13:05)
[2018-09-01] MEDS: PREDNISONE 20MG TABLET PO SCH (08:57)
[2018-09-01] MEDS: TAMSULOSIN HCL 0.4MG SR CAPSULE PO SCH (08:58)
[2018-09-01] MEDS: FAMOTIDINE 20MG TABLET PO SCH (08:58)
[2018-09-01] MEDS: BUDESONIDE 0.5MG/2ML NEB HHN SCH (09:01)
[2018-09-01 12:00] VITALS: BP 108/71
[2018-09-01 16:08] VITALS: BP 108/71
== END 2018-09-01 17:00 | disposition home or self-care (01) | DRG 140 ==
LOC: ER 17:26 → 6WST 22:17 → EDBEDREQTM 22:23 → EDBEDREQSVC 22:23 → EDBEDREQ 22:23 → EDBEDREQSVC 08-29 01:21 → ENRESERV 08-29 01:35
PROVIDERS: ADMIT Internal Medicine; ATTEND Internal Medicine
DX: J44.1 Chronic obstructive pulmonary disease with (acute) exacerbation (principal); J96.20 Acute and chronic respiratory failure, unspecified whether with hypoxia or hypercapnia; E43 Unspecified severe protein-calorie malnutrition; F14.10 Cocaine abuse, uncomplicated; N18.9 Chronic kidney disease, unspecified; N40.0 Benign prostatic hyperplasia without lower urinary tract symptoms; Z87.11 Personal history of peptic ulcer disease; Z87.891 Personal history of nicotine dependence; Z90.3 Acquired absence of stomach [part of]; Z91.14 Patient's other noncompliance with medication regimen; Z91.19 Patient's noncompliance with other medical treatment and regimen; Z88.0 Allergy status to penicillin; Z87.81 Personal history of (healed) traumatic fracture; R73.9 Hyperglycemia, unspecified; Z68.20 Body mass index [BMI] 20.0-20.9, adult
CPT/HCPCS: 36415; 36600; 71045; 80048; 80305; 82375; 82805; 82962; 83036; 83735; 83880; 84100; 84484; 93005; 94640; 96374; 99285; A6261; J1815; J2930; J7512; J7611; J7620; J7626

== ENCOUNTER 2018-09-02 19:23 | Inpatient (IN) | payer MEDICARE, MEDICAID ==
[~2018-09-02] VITALS: Ht 172.7 cm; Wt 63.6 kg
[~2018-09-02 19:23] MED LIST changes: +THEO80EL3 PO
[2018-09-02] MEDS ORDERED: ALBUTEROL (0.083%) 2.5MG/3ML NEB HHN STA ×2 (19:36→21:57)
[2018-09-02] MEDS ORDERED: IPRATROPIUM BROMIDE (0.02%) 0.5MG/2.5ML NEB HHN STA (19:36)
[2018-09-02] MEDS ORDERED: METHYLPREDNISOLONE SOD SUCC 125 MG/2 ML VIAL IV STA (19:36)
[2018-09-02] MEDS ORDERED: LEVOFLOXACIN 750MG PREMIX 150 ML IV ONE (19:45)
[2018-09-02] MEDS ORDERED: ASPIRIN 81MG TABLET PO ONE (19:45)
[2018-09-02] MEDS ORDERED: SODIUM CHLORIDE 0.9% 1000ML BAG (SEPSIS BOLUS) IV ONE (19:45)
[2018-09-02 21:05] LABS: BG BASE EXCESS 5.4 mmol/L (-2.0-2.0); BG DEOXYHEMOGLOBIN 1.1 % (0.0-5.0); BG FRACTION INSPIRED OXYGEN 32; BG HCO3 ACT 28.1 mmol/L (22.0-26.0); BG METHEMOGLOBIN 0.3 % (0.0-1.5); BG OXYGEN SATURATION 98.9 % (92.0-98.5); BG OXYHEMOGLOBIN 98.6 % (94.0-97.0); BG PH 7.535 (7.350-7.450); BG PO2 144.3 mmHg (75.0-100.0); BG SAMPLE SITE RIGHT RADIAL; BG TOTAL HEMOGLOBIN 10.2 g/dL (12.0-18.0); BG VENT MODE NASAL CANNULA
[2018-09-02 21:29] LABS: HEMATOCRIT. 31.5 % (42.0-52.0); HEMOGLOBIN. 9.9 g/dL (14.0-18.0); MEAN PLATELET VOLUME 7.2 fl (7.4-10.4); PLATELET 423 x1000/uL (130-400); RED BLOOD CELL COUNT 3.66 mill/uL (4.7-6.1); RED CELL DISTRIBUTION WIDTH 17.1 % (11.6-14.6)
[2018-09-02 21:37] LABS: PARTIAL THROMBOPLASTIN TIME 24.8 sec (23.4-31.0)
[2018-09-02 21:39] LABS: CHLORIDE 101 mEq/L (98-107)
[2018-09-02 21:42] LABS: CLARITY URINE CLEAR (CLEAR); COLOR URINE YELLOW (YELLOW); KETONES URINE NEGATIVE (NEGATIVE); LEUKOCYTE ESTERASE URINE NEGATIVE (NEGATIVE); NITRITE URINE NEGATIVE (NEGATIVE); OCCULT BLOOD URINE NEGATIVE (NEGATIVE); PROTEIN URINE 1+ (NEGATIVE); SPECIFIC GRAVITY URINE 1.019 (1.005-1.030)
[2018-09-02 21:50] LABS: PLATELET ESTIMATE INCREASED
[2018-09-03 00:30] VITALS: BP 96/55
[2018-09-03] MEDS ORDERED: NON FORMULARY PATIENT HOME MED XX SCH (01:00)
[2018-09-03] MEDS ORDERED: IPRATROPIUM/ALBUTEROL 0.5-3(2.5)MG/3ML NEB HHN PRN (01:00)
[2018-09-03] MEDS: MORPHINE SULFATE 4 MG/ML CPJ (NOT FOR IM USE) IV PRN ×3 (04:15→17:37)
[2018-09-03] MEDS: IPRATROPIUM/ALBUTEROL 0.5-3(2.5)MG/3ML NEB HHN SCH ×6 (04:19→22:14)
[2018-09-03] MEDS: METHYLPREDNISOLONE SOD SUCC 40 MG/ML VIAL IV SCH ×3 (06:28→21:43)
[2018-09-03 06:49] LABS: HEMATOCRIT. 26.1 % (42.0-52.0); HEMOGLOBIN. 8.2 g/dL (14.0-18.0); MEAN CORPUSCULAR HEMOGLOBIN 26.8 pg (28.0-32.0); MEAN CORPUSCULAR VOLUME 85.4 fL (80.0-94.0); MEAN PLATELET VOLUME 7.2 fl (7.4-10.4); PLATELET 392 x1000/uL (130-400); RED BLOOD CELL COUNT 3.06 mill/uL (4.7-6.1); RED CELL DISTRIBUTION WIDTH 16.9 % (11.6-14.6)
[2018-09-03 06:57] LABS: CHLORIDE 101 mEq/L (98-107)
[2018-09-03] MEDS: BUDESONIDE 0.5MG/2ML NEB HHN SCH ×2 (08:40→20:59)
[2018-09-03] MEDS ORDERED: DEXTROSE 50% WATER 50ML SYRINGE IV PRN (08:45)
[2018-09-03] MEDS ORDERED: LEVOFLOXACIN 500MG PREMIX 100 ML IV SCH ×2 (09:00→21:00)
[2018-09-03] MEDS: BLOOD SUGAR DIAGNOSTIC STRIP TEST SCH ×3 (11:18→20:16)
[2018-09-03] MEDS: SUCRALFATE 1 G/10 ML UDC PO SCH ×3 (12:14→21:43)
[2018-09-03] MEDS: INSULIN LISPRO 100 UNITS/ML SUBCUT SCH ×3 (12:14→21:52)
[2018-09-03 14:00] VITALS: BP 109/73
[2018-09-03 14:50] LABS: PLATELET ESTIMATE NORMAL
[2018-09-03 16:00] VITALS: BP 115/72
[2018-09-03] MEDS: MONTELUKAST SODIUM 10MG TABLET PO SCH (17:28)
[2018-09-03 20:00] VITALS: BP 93/60
[2018-09-03] MEDS: TAMSULOSIN HCL 0.4MG SR CAPSULE PO SCH (21:59)
[2018-09-03 22:00] VITALS: BP 93/60
[2018-09-04] VITALS: BP 101/53
[2018-09-04] MEDS: IPRATROPIUM/ALBUTEROL 0.5-3(2.5)MG/3ML NEB HHN SCH ×6 (00:09→22:33)
[2018-09-04 06:00] VITALS: BP 105/57
[2018-09-04] MEDS: SUCRALFATE 1 G/10 ML UDC PO SCH ×4 (06:08→20:20)
[2018-09-04] MEDS: METHYLPREDNISOLONE SOD SUCC 40 MG/ML VIAL IV SCH (06:08)
[2018-09-04] MEDS: OMEPRAZOLE 20MG CAPSULE EXTENDED RELEASE PO SCH (06:08)
[2018-09-04] MEDS: BLOOD SUGAR DIAGNOSTIC STRIP TEST SCH ×4 (06:14→20:23)
[2018-09-04] MEDS ORDERED: INSULIN LISPRO 100 UNITS/ML SUBCUT ONE (06:30)
[2018-09-04] MEDS: INSULIN LISPRO 100 UNITS/ML SUBCUT SCH ×4 (06:36→20:23)
[2018-09-04 06:43] LABS: BASOPHILS % 0.2 % (0.0-2.0); HEMOGLOBIN. 8.1 g/dL (14.0-18.0); LYMPHOCYTES % 8.5 % (20.0-50.0); MEAN CORPUSCULAR HEMOGLOBIN 27.1 pg (28.0-32.0); MEAN CORPUSCULAR VOLUME 86.7 fL (80.0-94.0); MEAN PLATELET VOLUME 7.1 fl (7.4-10.4); MONOCYTES % 3.3 % (2.0-8.0); PLATELET 434 x1000/uL (130-400); RED CELL DISTRIBUTION WIDTH 16.7 % (11.6-14.6)
[2018-09-04 08:00] VITALS: BP 101/59
[2018-09-04] MEDS ORDERED: INSULIN LISPRO 100 UNITS/ML SUBCUT NR (10:30)
[2018-09-04] MEDS: MORPHINE SULFATE 4 MG/ML CPJ (NOT FOR IM USE) IV PRN (10:47)
[2018-09-04] MEDS: DOCUSATE SODIUM 250MG CAPSULE PO SCH (11:00)
[2018-09-04 12:00] VITALS: BP 109/61
[2018-09-04] MEDS ORDERED: DIATR MEGLU/DIATRIZOATE SOLN 30ML PO NR (12:45)
[2018-09-04] MEDS: BUDESONIDE 0.5MG/2ML NEB HHN SCH ×2 (12:58→21:04)
[2018-09-04] MEDS: MONTELUKAST SODIUM 10MG TABLET PO SCH (17:13)
[2018-09-04 20:00] VITALS: BP 100/61
[2018-09-04] MEDS: TAMSULOSIN HCL 0.4MG SR CAPSULE PO SCH (20:20)
[2018-09-04] MEDS: LEVOFLOXACIN 250MG PREMIX 50 ML IV SCH (21:53)
[2018-09-04] MEDS: INSULIN GLARGINE UD 100 UNITS/ML SYR SUBCUT SCH (21:54)
[2018-09-05] MEDS: IPRATROPIUM/ALBUTEROL 0.5-3(2.5)MG/3ML NEB HHN SCH ×5 (03:02→20:28)
[2018-09-05] MEDS: OMEPRAZOLE 20MG CAPSULE EXTENDED RELEASE PO SCH (07:26)
[2018-09-05] MEDS: SUCRALFATE 1 G/10 ML UDC PO SCH ×4 (07:26→22:52)
[2018-09-05] MEDS: BLOOD SUGAR DIAGNOSTIC STRIP TEST SCH ×4 (07:30→23:04)
[2018-09-05] MEDS: INSULIN LISPRO 100 UNITS/ML SUBCUT SCH ×4 (07:50→21:00)
[2018-09-05 08:00] VITALS: BP 105/68
[2018-09-05] MEDS: DOCUSATE SODIUM 250MG CAPSULE PO SCH (09:04)
[2018-09-05] MEDS: PREDNISONE 20MG TABLET PO SCH (09:04)
[2018-09-05] MEDS: MORPHINE SULFATE 4 MG/ML CPJ (NOT FOR IM USE) IV PRN ×2 (09:05→22:59)
[2018-09-05] MEDS: BUDESONIDE 0.5MG/2ML NEB HHN SCH ×2 (09:11→20:25)
[2018-09-05] MEDS: INSULIN GLARGINE UD 100 UNITS/ML SYR SUBCUT SCH ×2 (11:04→23:29)
[2018-09-05 12:00] VITALS: BP 91/59
[2018-09-05 16:00] VITALS: BP 92/60
[2018-09-05 16:44] VITALS: BP 91/59
[2018-09-05] MEDS: MONTELUKAST SODIUM 10MG TABLET PO SCH (17:52)
[2018-09-05 20:00] VITALS: BP 109/68
[2018-09-05] MEDS: LEVOFLOXACIN 250MG PREMIX 50 ML IV SCH (22:58)
[2018-09-05] MEDS: TAMSULOSIN HCL 0.4MG SR CAPSULE PO SCH (22:59)
[2018-09-06] MEDS: IPRATROPIUM/ALBUTEROL 0.5-3(2.5)MG/3ML NEB HHN SCH ×6 (00:25→21:08)
[2018-09-06 04:00] VITALS: BP 101/56
[2018-09-06] MEDS: MORPHINE SULFATE 4 MG/ML CPJ (NOT FOR IM USE) IV PRN (06:58)
[2018-09-06] MEDS: BLOOD SUGAR DIAGNOSTIC STRIP TEST SCH ×4 (07:20→21:57)
[2018-09-06] MEDS: OMEPRAZOLE 20MG CAPSULE EXTENDED RELEASE PO SCH (07:22)
[2018-09-06] MEDS: SUCRALFATE 1 G/10 ML UDC PO SCH ×4 (07:22→21:59)
[2018-09-06] MEDS: INSULIN LISPRO 100 UNITS/ML SUBCUT SCH ×4 (07:50→21:00)
[2018-09-06 08:00] VITALS: BP 96/68
[2018-09-06] MEDS: DOCUSATE SODIUM 250MG CAPSULE PO SCH (08:46)
[2018-09-06] MEDS: PREDNISONE 20MG TABLET PO SCH (08:47)
[2018-09-06] MEDS: BUDESONIDE 0.5MG/2ML NEB HHN SCH (09:23)
[2018-09-06] MEDS: INSULIN GLARGINE UD 100 UNITS/ML SYR SUBCUT SCH ×2 (11:32→23:08)
[2018-09-06 12:00] VITALS: BP 86/57
[2018-09-06 16:00] VITALS: BP 84/64
[2018-09-06] MEDS: MONTELUKAST SODIUM 10MG TABLET PO SCH (18:11)
[2018-09-06 20:00] VITALS: BP 99/53
[2018-09-06] MEDS: TAMSULOSIN HCL 0.4MG SR CAPSULE PO SCH (21:59)
[2018-09-06] MEDS: LEVOFLOXACIN 250MG PREMIX 50 ML IV SCH (22:34)
[2018-09-07] VITALS: BP 101/55
[2018-09-07] MEDS: IPRATROPIUM/ALBUTEROL 0.5-3(2.5)MG/3ML NEB HHN SCH ×4 (00:46→15:28)
[2018-09-07 04:00] VITALS: BP 98/56
[2018-09-07] MEDS: OMEPRAZOLE 20MG CAPSULE EXTENDED RELEASE PO SCH ×2 (07:13→08:45)
[2018-09-07] MEDS: SUCRALFATE 1 G/10 ML UDC PO SCH ×2 (07:13→12:01)
[2018-09-07] MEDS: BLOOD SUGAR DIAGNOSTIC STRIP TEST SCH ×2 (07:21→12:20)
[2018-09-07 08:00] VITALS: BP 104/52
[2018-09-07] MEDS: PREDNISONE 20MG TABLET PO SCH (08:45)
[2018-09-07] MEDS: DOCUSATE SODIUM 250MG CAPSULE PO SCH (08:45)
[2018-09-07] MEDS: INSULIN LISPRO 100 UNITS/ML SUBCUT SCH ×2 (08:46→12:50)
[2018-09-07] MEDS: MORPHINE SULFATE 4 MG/ML CPJ (NOT FOR IM USE) IV PRN (10:44)
[2018-09-07 11:14] VITALS: BP 104/52
[2018-09-07 12:00] VITALS: BP 83/52
[2018-09-08] MEDS ORDERED: SUCR1TAB PO (03:46)
[2018-09-08] MEDS ORDERED: P20 PO (03:46)
[2018-09-08] MEDS ORDERED: OMEP40CA34 PO (03:46)
[2018-09-08] MEDS ORDERED: FLUT1AER IH (03:47)
[2018-09-08] MEDS ORDERED: IPRA3AMP31 IH (03:48)
[2018-09-08] MEDS ORDERED: LEVO500T89 PO (03:50)
[2018-09-08] MEDS ORDERED: LEVO250T58 PO (03:50)
[2018-09-08] MEDS ORDERED: METF-416 PO (03:50)
[2018-09-08] MEDS ORDERED: ALBU18HF2 IH (03:52)
== END 2018-09-07 16:23 | disposition home or self-care (01) | DRG 133 ==
LOC: ER 19:23 → 3WST 21:57 → ENRESERV 22:34 → 6EST 09-04 23:15
PROVIDERS: ADMIT Internal Medicine; ATTEND Internal Medicine
PROC: 5A09357 Assistance with Respiratory Ventilation, Less than 24 Consecutive Hours, Continuous Positive Airway Pressure (ICD-10-PCS; principal; 2018-09-02)
PROC: 5A09357 Assistance with Respiratory Ventilation, Less than 24 Consecutive Hours, Continuous Positive Airway Pressure (ICD-10-PCS; 2018-09-03)
DX: J96.00 Acute respiratory failure, unspecified whether with hypoxia or hypercapnia (principal); E43 Unspecified severe protein-calorie malnutrition; E11.22 Type 2 diabetes mellitus with diabetic chronic kidney disease; J44.1 Chronic obstructive pulmonary disease with (acute) exacerbation; J45.901 Unspecified asthma with (acute) exacerbation; I50.9 Heart failure, unspecified; I13.0 Hypertensive heart and chronic kidney disease with heart failure and stage 1 through stage 4 chronic kidney disease, or unspecified chronic kidney disease; K25.9 Gastric ulcer, unspecified as acute or chronic, without hemorrhage or perforation; D64.9 Anemia, unspecified; H54.7 Unspecified visual loss; K29.70 Gastritis, unspecified, without bleeding; N40.0 Benign prostatic hyperplasia without lower urinary tract symptoms; F14.90 Cocaine use, unspecified, uncomplicated; J98.11 Atelectasis; N18.2 Chronic kidney disease, stage 2 (mild); Z87.11 Personal history of peptic ulcer disease; Z68.21 Body mass index [BMI] 21.0-21.9, adult; Z71.51 Drug abuse counseling and surveillance of drug abuser; Z90.3 Acquired absence of stomach [part of]; Z79.899 Other long term (current) drug therapy; Z88.0 Allergy status to penicillin
CPT/HCPCS: 36415; 36600; 71045; 80048; 82375; 82805; 82962; 83605; 83880; 84145; 84484; 93005; 94640; 94644; 94660; 96365; 96366; 96375; 99291; J1815; J1956; J2270; J2920; J2930; J7030; J7040; J7050; J7512; J7611; J7620; J7626; Q9963

== ENCOUNTER 2018-09-07 17:22 | Inpatient (IN) | payer MEDICARE, MEDICAID ==
[~2018-09-07] VITALS: Ht 172.7 cm; Wt 60.8 kg
[2018-09-07] MEDS ORDERED: LEVOFLOXACIN 750MG PREMIX 150 ML IV STA (17:28)
[2018-09-07] MEDS ORDERED: METHYLPREDNISOLONE SOD SUCC 125 MG/2 ML VIAL IV STA (17:28)
[2018-09-07] MEDS ORDERED: ALBUTEROL (0.083%) 2.5MG/3ML NEB HHN STA ×2 (17:28→19:08)
[2018-09-07] MEDS ORDERED: IPRATROPIUM BROMIDE (0.02%) 0.5MG/2.5ML NEB HHN STA (17:28)
[2018-09-07 18:42] LABS: HEMATOCRIT. 27.5 % (42.0-52.0); HEMOGLOBIN. 8.5 g/dL (14.0-18.0); MEAN CORPUSCULAR HEMOGLOBIN 26.3 pg (28.0-32.0); MEAN CORPUSCULAR VOLUME 84.8 fL (80.0-94.0); MEAN PLATELET VOLUME 6.8 fl (7.4-10.4); PLATELET 550 x1000/uL (130-400); RED BLOOD CELL COUNT 3.25 mill/uL (4.7-6.1); RED CELL DISTRIBUTION WIDTH 16.9 % (11.6-14.6)
[2018-09-07 18:44] LABS: CHLORIDE 102 mEq/L (98-107)
[2018-09-07 18:57] LABS: THEOPHYLLINE < 2.0 ug/mL (10-20)
[2018-09-07 18:58] LABS: PLATELET ESTIMATE INCREASED
[2018-09-07 21:37] LABS: BG BASE EXCESS 1.5 mmol/L (-2.0-2.0); BG CARBOXYHEMOGLOBIN 0.3 % (0.5-1.5); BG DEOXYHEMOGLOBIN 3.3 % (0.0-5.0); BG FRACTION INSPIRED OXYGEN 26; BG METHEMOGLOBIN 0.3 % (0.0-1.5); BG OXYGEN SATURATION 96.7 % (92.0-98.5); BG OXYHEMOGLOBIN 96.1 % (94.0-97.0); BG PCO2 40.7 mmHg (35.0-45.0); BG PH 7.424 (7.350-7.450); BG PO2 90.3 mmHg (75.0-100.0); BG SAMPLE SITE LEFT RADIAL; BG TOTAL HEMOGLOBIN 9.2 g/dL (12.0-18.0); BG VENT MODE NASAL CANNULA
[2018-09-08] MEDS ORDERED: SUCR1TAB PO (03:46)
[2018-09-08] MEDS ORDERED: OMEP40CA34 PO (03:46)
[2018-09-08] MEDS ORDERED: P20 PO (03:46)
[2018-09-08] MEDS ORDERED: FLUT1AER IH (03:47)
[2018-09-08] MEDS ORDERED: IPRA3AMP31 IH (03:48)
[2018-09-08] MEDS ORDERED: METF-416 PO (03:50)
[2018-09-08] MEDS ORDERED: LEVO250T58 PO (03:50)
[2018-09-08] MEDS ORDERED: LEVO500T89 PO (03:50)
[2018-09-08] MEDS ORDERED: ALBU18HF2 IH (03:52)
[2018-09-08] MEDS ORDERED: NON FORMULARY PATIENT HOME MED XX SCH (04:00)
[2018-09-08] MEDS ORDERED: LEVOFLOXACIN 500MG PREMIX 100 ML IV SCH ×2 (04:00→18:00)
[2018-09-08 04:21] VITALS: BP 88/63
[2018-09-08] MEDS ORDERED: IPRATROPIUM/ALBUTEROL 0.5-3(2.5)MG/3ML NEB HHN PRN (04:30)
[2018-09-08] MEDS ORDERED: SALMETEROL 50 MCG/INH 28 BLIST DISKUS INHR ORI SCH (09:00)
[2018-09-08] MEDS: IPRATROPIUM/ALBUTEROL 0.5-3(2.5)MG/3ML NEB HHN SCH ×3 (10:49→20:32)
[2018-09-08] MEDS: SUCRALFATE 1 G/10 ML UDC PO SCH ×3 (11:30→21:09)
[2018-09-08] MEDS: OMEPRAZOLE 20MG CAPSULE EXTENDED RELEASE PO SCH (11:30)
[2018-09-08 12:00] VITALS: BP 98/66
[2018-09-08 12:15] LABS: HEMATOCRIT. 24.7 % (42.0-52.0); HEMOGLOBIN. 7.8 g/dL (14.0-18.0); MEAN CORPUSCULAR HEMOGLOBIN 26.6 pg (28.0-32.0); MEAN CORPUSCULAR VOLUME 84.5 fL (80.0-94.0); MEAN PLATELET VOLUME 6.7 fl (7.4-10.4); PLATELET 503 x1000/uL (130-400); RED BLOOD CELL COUNT 2.93 mill/uL (4.7-6.1); RED CELL DISTRIBUTION WIDTH 17.3 % (11.6-14.6)
[2018-09-08 12:24] LABS: CHLORIDE 102 mEq/L (98-107)
[2018-09-08] MEDS: THEOPHYLLINE ANHYDROUS 80 MG/15 ML 120ML PO SCH ×2 (13:22→21:10)
[2018-09-08 13:26] LABS: PLATELET ESTIMATE INCREASED
[2018-09-08 16:00] VITALS: BP 106/61
[2018-09-08] MEDS: HYDROCODONE/ACETAMINOPHEN 5/325MG TABLET PO PRN (16:59)
[2018-09-08 20:00] VITALS: BP 96/59
[2018-09-08] MEDS: BUDESONIDE 0.5MG/2ML NEB HHN SCH (20:32)
[2018-09-09] VITALS: BP 98/64
[2018-09-09] MEDS: IPRATROPIUM/ALBUTEROL 0.5-3(2.5)MG/3ML NEB HHN SCH ×4 (00:22→20:43)
[2018-09-09] MEDS: HYDROCODONE/ACETAMINOPHEN 5/325MG TABLET PO PRN ×2 (02:14→14:40)
[2018-09-09 02:23] LABS: *AMPHETAMINES SCREEN URINE NEGATIVE (NEGATIVE); *BARBITURATES SCREEN URINE NEGATIVE (NEGATIVE); *BENZODIAZEPINES SCREEN URINE NEGATIVE (NEGATIVE)
[2018-09-09 02:24] LABS: *COCAINE SCREEN URINE NEGATIVE (NEGATIVE); CANNABINOID URINE SCREEN NEGATIVE (NEGATIVE); METHADONE URINE SCREEN NEGATIVE (NEGATIVE); OPIATES URINE SCREEN PRESUMTIVE POSITIVE (NEGATIVE); PHENCYCLIDINE URINE SCREEN NEGATIVE (NEGATIVE)
[2018-09-09 04:00] VITALS: BP 94/58
[2018-09-09] MEDS: OMEPRAZOLE 20MG CAPSULE EXTENDED RELEASE PO SCH (06:20)
[2018-09-09] MEDS: SUCRALFATE 1 G/10 ML UDC PO SCH ×4 (06:20→21:13)
[2018-09-09] MEDS: THEOPHYLLINE ANHYDROUS 80 MG/15 ML 120ML PO SCH ×3 (06:21→21:14)
[2018-09-09 08:00] VITALS: BP 109/60
[2018-09-09 12:00] VITALS: BP 99/49
[2018-09-09 12:48] LABS: HEMATOCRIT. 25.3 % (42.0-52.0); MEAN CORPUSCULAR HEMOGLOBIN 26.8 pg (28.0-32.0); MEAN CORPUSCULAR VOLUME 84.2 fL (80.0-94.0); MEAN PLATELET VOLUME 6.7 fl (7.4-10.4); PLATELET 461 x1000/uL (130-400); RED CELL DISTRIBUTION WIDTH 16.9 % (11.6-14.6)
[2018-09-09 13:19] LABS: NUCLEATED RED BLOOD CELLS 1 /100 WBC
[2018-09-09 13:20] LABS: PLATELET ESTIMATE INCREASED
[2018-09-09 16:00] VITALS: BP 149/75
[2018-09-09] MEDS: METFORMIN HCL 500MG TABLET PO SCH (18:18)
[2018-09-09 20:00] VITALS: BP 91/53
[2018-09-09] MEDS: BUDESONIDE 0.5MG/2ML NEB HHN SCH (20:43)
[2018-09-09] MEDS: TRAMADOL 50MG TABLET PO PRN (22:27)
[2018-09-10] VITALS: BP 93/57
[2018-09-10 04:00] VITALS: BP 99/63
[2018-09-10] MEDS: IPRATROPIUM/ALBUTEROL 0.5-3(2.5)MG/3ML NEB HHN SCH ×5 (04:52→21:13)
[2018-09-10] MEDS: SUCRALFATE 1 G/10 ML UDC PO SCH ×4 (06:18→22:37)
[2018-09-10] MEDS: THEOPHYLLINE ANHYDROUS 80 MG/15 ML 120ML PO SCH ×3 (06:19→22:37)
[2018-09-10 08:00] VITALS: BP 94/64
[2018-09-10] MEDS: METFORMIN HCL 500MG TABLET PO SCH ×2 (08:23→17:24)
[2018-09-10] MEDS: TRAMADOL 50MG TABLET PO PRN (08:23)
[2018-09-10] MEDS ORDERED: FAMOTIDINE 20MG TABLET PO SCH (09:00)
[2018-09-10 12:00] VITALS: BP 93/59
[2018-09-10 16:00] VITALS: BP 97/65
[2018-09-10 20:00] VITALS: BP 107/70
[2018-09-10] MEDS: BUDESONIDE 0.5MG/2ML NEB HHN SCH (21:09)
[2018-09-11] VITALS (7 sets, daily range): BP systolic 100–118; BP diastolic 60–79
[2018-09-11] MEDS: IPRATROPIUM/ALBUTEROL 0.5-3(2.5)MG/3ML NEB HHN SCH ×6 (00:47→21:43)
[2018-09-11] MEDS: TRAMADOL 50MG TABLET PO PRN ×2 (02:52→10:00)
[2018-09-11] MEDS: THEOPHYLLINE ANHYDROUS 80 MG/15 ML 120ML PO SCH ×3 (06:34→22:00)
[2018-09-11] MEDS: SUCRALFATE 1 G/10 ML UDC PO SCH ×4 (06:35→22:39)
[2018-09-11] MEDS: OMEPRAZOLE 20MG CAPSULE EXTENDED RELEASE PO SCH (06:35)
[2018-09-11] MEDS: METFORMIN HCL 500MG TABLET PO SCH ×2 (06:36→17:39)
[2018-09-11] MEDS: BUDESONIDE 0.5MG/2ML NEB HHN SCH (09:43)
[2018-09-12] VITALS (7 sets, daily range): BP systolic 89–103; BP diastolic 51–67
[2018-09-12] MEDS: TRAMADOL 50MG TABLET PO PRN ×2 (00:04→11:12)
[2018-09-12] MEDS: IPRATROPIUM/ALBUTEROL 0.5-3(2.5)MG/3ML NEB HHN SCH ×5 (02:35→22:45)
[2018-09-12] MEDS: THEOPHYLLINE ANHYDROUS 80 MG/15 ML 120ML PO SCH ×2 (06:00→14:00)
[2018-09-12] MEDS: SUCRALFATE 1 G/10 ML UDC PO SCH ×4 (06:15→22:25)
[2018-09-12] MEDS: METFORMIN HCL 500MG TABLET PO SCH ×2 (06:15→17:05)
[2018-09-12] MEDS: OMEPRAZOLE 20MG CAPSULE EXTENDED RELEASE PO SCH (06:15)
[2018-09-13] VITALS: BP 104/60
[2018-09-13] MEDS: IPRATROPIUM/ALBUTEROL 0.5-3(2.5)MG/3ML NEB HHN SCH ×6 (01:07→18:10)
[2018-09-13] MEDS: THEOPHYLLINE ANHYDROUS 80 MG/15 ML 120ML PO SCH ×4 (01:27→22:35)
[2018-09-13 04:00] VITALS: BP 101/66
[2018-09-13] MEDS: SUCRALFATE 1 G/10 ML UDC PO SCH ×4 (06:28→22:35)
[2018-09-13] MEDS: OMEPRAZOLE 20MG CAPSULE EXTENDED RELEASE PO SCH (06:29)
[2018-09-13 07:28] LABS: HEMATOCRIT. 26.1 % (42.0-52.0); HEMOGLOBIN. 8.4 g/dL (14.0-18.0); MEAN CORPUSCULAR HEMOGLOBIN 26.5 pg (28.0-32.0); MEAN CORPUSCULAR VOLUME 82.2 fL (80.0-94.0); MEAN PLATELET VOLUME 6.8 fl (7.4-10.4); PLATELET 460 x1000/uL (130-400); RED BLOOD CELL COUNT 3.17 mill/uL (4.7-6.1); RED CELL DISTRIBUTION WIDTH 17.4 % (11.6-14.6)
[2018-09-13 07:45] LABS: CHLORIDE 101 mEq/L (98-107)
[2018-09-13 08:00] VITALS: BP 92/56
[2018-09-13] MEDS: METFORMIN HCL 500MG TABLET PO SCH ×2 (09:44→17:52)
[2018-09-13 10:41] LABS: PLATELET ESTIMATE INCREASED
[2018-09-13] MEDS: TRAMADOL 50MG TABLET PO PRN (11:17)
[2018-09-13 12:00] VITALS: BP 91/67
[2018-09-13 16:00] VITALS: BP 95/66
[2018-09-14] MEDS: IPRATROPIUM/ALBUTEROL 0.5-3(2.5)MG/3ML NEB HHN SCH ×6 (00:34→21:46)
[2018-09-14] MEDS: SUCRALFATE 1 G/10 ML UDC PO SCH ×4 (06:40→20:53)
[2018-09-14] MEDS: OMEPRAZOLE 20MG CAPSULE EXTENDED RELEASE PO SCH ×2 (06:49→09:03)
[2018-09-14 08:00] VITALS: BP 112/61
[2018-09-14] MEDS: THEOPHYLLINE ANHYDROUS 80 MG/15 ML 120ML PO SCH ×3 (08:02→22:00)
[2018-09-14] MEDS: METFORMIN HCL 500MG TABLET PO SCH ×2 (09:04→17:50)
[2018-09-14] MEDS: TRAMADOL 50MG TABLET PO PRN (10:23)
[2018-09-14 12:12] VITALS: BP 105/69
[2018-09-14 15:55] VITALS: BP 105/69
[2018-09-14 20:00] VITALS: BP 107/65
[2018-09-15] VITALS: BP 119/72
[2018-09-15] MEDS: IPRATROPIUM/ALBUTEROL 0.5-3(2.5)MG/3ML NEB HHN SCH ×2 (01:38→10:26)
[2018-09-15 04:00] VITALS: BP 99/52
[2018-09-15] MEDS: THEOPHYLLINE ANHYDROUS 80 MG/15 ML 120ML PO SCH (05:35)
[2018-09-15] MEDS: SUCRALFATE 1 G/10 ML UDC PO SCH (06:56)
[2018-09-15] MEDS: METFORMIN HCL 500MG TABLET PO SCH (07:50)
[2018-09-15 08:00] VITALS: BP 95/56
[2018-09-15] MEDS ORDERED: NITROGLYCERIN 0.4MG TABLET SL SL PRN (10:30)
[2018-09-15] MEDS ORDERED: HYDROMORPHONE HCL/PF 2MG/ML CPJ IM PRN (11:15)
[2018-09-15 11:25] VITALS: BP 88/63
== END 2018-09-15 11:57 | disposition home or self-care (01) | DRG 140 ==
LOC: ER 17:35 → 5WST 18:52 → EDBEDREQ 18:54 → ENRESERV 09-08 02:28 → 6EST 09-12 18:49
PROVIDERS: ADMIT Internal Medicine; ATTEND Internal Medicine
DX: J44.0 Chronic obstructive pulmonary disease with (acute) lower respiratory infection (principal); J96.20 Acute and chronic respiratory failure, unspecified whether with hypoxia or hypercapnia; E43 Unspecified severe protein-calorie malnutrition; I11.0 Hypertensive heart disease with heart failure; J18.9 Pneumonia, unspecified organism; D64.9 Anemia, unspecified; I50.9 Heart failure, unspecified; Z99.81 Dependence on supplemental oxygen; J44.1 Chronic obstructive pulmonary disease with (acute) exacerbation; N40.0 Benign prostatic hyperplasia without lower urinary tract symptoms; K25.9 Gastric ulcer, unspecified as acute or chronic, without hemorrhage or perforation; E11.36 Type 2 diabetes mellitus with diabetic cataract; D72.829 Elevated white blood cell count, unspecified; F14.10 Cocaine abuse, uncomplicated; F17.210 Nicotine dependence, cigarettes, uncomplicated; T38.0X5A Adverse effect of glucocorticoids and synthetic analogues, initial encounter; Z76.5 Malingerer [conscious simulation]; Z79.51 Long term (current) use of inhaled steroids; Z79.84 Long term (current) use of oral hypoglycemic drugs; Z79.899 Other long term (current) drug therapy; Z87.01 Personal history of pneumonia (recurrent); Z87.11 Personal history of peptic ulcer disease; Z90.3 Acquired absence of stomach [part of]; Z88.0 Allergy status to penicillin; Z71.6 Tobacco abuse counseling; Z68.20 Body mass index [BMI] 20.0-20.9, adult; Y92.89 Other specified places as the place of occurrence of the external cause
CPT/HCPCS: 36415; 36600; 71045; 80048; 80198; 80305; 82375; 82805; 82962; 83605; 83880; 84145; 84484; 93005; 94640; 94644; 96374; 99285; J1170; J1956; J2930; J7050; J7611; J7620; J7626

== ENCOUNTER 2018-09-15 23:16 | Emergency (ER) | payer MEDICARE, MEDICAID ==
[~2018-09-15] VITALS: Ht 172.7 cm; Wt 57.0 kg
[~2018-09-15 23:16] MED LIST changes: +ALBU18HF2 IH; -BUDE6HFA INH; +FLUT1AER IH; +IPRA3AMP31 IH; +LEVO250T58 PO; +LEVO500T89 PO; +METF-416 PO; +OMEP40CA34 PO; +P20 PO; +SUCR1TAB PO
[2018-09-16] MEDS ORDERED: ALBUTEROL (0.083%) 2.5MG/3ML NEB HHN STA ×2 (03:02→06:45)
[2018-09-16] MEDS ORDERED: IPRATROPIUM BROMIDE (0.02%) 0.5MG/2.5ML NEB HHN STA ×2 (03:02→06:45)
[2018-09-16 03:37] LABS: HEMATOCRIT. 26.3 % (42.0-52.0); HEMOGLOBIN. 8.3 g/dL (14.0-18.0); MEAN CORPUSCULAR HEMOGLOBIN 25.6 pg (28.0-32.0); MEAN CORPUSCULAR VOLUME 81.3 fL (80.0-94.0); MEAN PLATELET VOLUME 6.5 fl (7.4-10.4); PLATELET 540 x1000/uL (130-400); RED BLOOD CELL COUNT 3.24 mill/uL (4.7-6.1); RED CELL DISTRIBUTION WIDTH 17.4 % (11.6-14.6)
[2018-09-16 03:43] LABS: CHLORIDE 99 mEq/L (98-107)
[2018-09-16 04:08] LABS: BG BASE EXCESS 2.1 mmol/L (-2.0-2.0); BG CARBOXYHEMOGLOBIN 0.1 % (0.5-1.5); BG DEOXYHEMOGLOBIN 2.9 % (0.0-5.0); BG FRACTION INSPIRED OXYGEN 28; BG HCO3 ACT 26.5 mmol/L (22.0-26.0); BG METHEMOGLOBIN 0.3 % (0.0-1.5); BG OXYGEN SATURATION 97.1 % (92.0-98.5); BG OXYHEMOGLOBIN 96.7 % (94.0-97.0); BG PCO2 40.3 mmHg (35.0-45.0); BG PH 7.435 (7.350-7.450); BG PO2 94.6 mmHg (75.0-100.0); BG SAMPLE SITE RIGHT RADIAL; BG VENT MODE NASAL CANNULA
[2018-09-16 06:09] LABS: PLATELET ESTIMATE INCREASED
[2018-09-16] MEDS ORDERED: MAGNESIUM 2 G PREMIX 50 ML IV ONE (06:45)
[2018-09-16] MEDS ORDERED: METHYLPREDNISOLONE SOD SUCC 125 MG/2 ML VIAL IV STA (06:45)
[2018-09-16] MEDS ORDERED: SODIUM CHLORIDE 0.9% 1,000 ML IV ONE (07:11)
[2018-09-16] MEDS ORDERED: GUAIFENESIN 200MG/10ML SUGAR FREE UDC PO PRN (07:30)
[2018-09-16] MEDS ORDERED: IPRATROPIUM/ALBUTEROL 0.5-3(2.5)MG/3ML NEB INH PRN (07:30)
[2018-09-16] MEDS ORDERED: NA PHOS,M-B/NA PHOS,DI-BA ENEMA 118ML PR PRN (07:30)
[2018-09-16] MEDS ORDERED: HYDROCODONE/ACETAMINOPHEN 5/325MG TABLET PO PRN (07:30)
[2018-09-16] MEDS ORDERED: LORAZEPAM 2MG/ML CPJ IV PRN (07:30)
[2018-09-16] MEDS ORDERED: DIPHENHYDRAMINE 50MG/ML VIAL IV PRN (07:30)
[2018-09-16] MEDS ORDERED: METHYLPREDNISOLONE SOD SUCC 125 MG/2 ML VIAL IV SCH (07:30)
[2018-09-16] MEDS ORDERED: DOCUSATE SODIUM 100MG CAPSULE PO PRN (07:30)
[2018-09-16] MEDS ORDERED: MAGNESIUM/ALUMINUM HYDROXIDE/SIMETHICONE 30ML UDC PO PRN (07:30)
[2018-09-16] MEDS ORDERED: ACETAMINOPHEN 325MG TABLET PO PRN (07:30)
[2018-09-16] MEDS ORDERED: ONDANSETRON HCL 4MG/2ML INJ IV PRN (07:30)
[2018-09-16] MEDS ORDERED: ENOXAPARIN 40MG/0.4ML SYR SUBCUT SCH (07:30)
[2018-09-16] MEDS ORDERED: LEVOFLOXACIN 500MG PREMIX 100 ML IV SCH (07:30)
[2018-09-16] MEDS ORDERED: MORPHINE SULFATE 4 MG/ML CPJ (NOT FOR IM USE) IV PRN (07:30)
[2018-09-16] MEDS ORDERED: CLONIDINE 0.1MG TABLET PO PRN (07:30)
[2018-09-16] MEDS ORDERED: ASPIRIN 81MG EC TABLET PO SCH (09:00)
[2018-09-16] MEDS ORDERED: SODIUM CHLORIDE 0.9% 1,000 ML IV SCH (09:15)
[2018-09-16] MEDS ORDERED: BUDESONIDE 0.5MG/2ML NEB HHN SCH (13:30)
[2018-09-16 15:06] LABS: T4 FREE 1.18 ng/dL (0.76-1.46)
[2018-09-16 15:08] LABS: CREATINE KINASE MB FRACTION 2.9 ng/mL (0.5-3.6)
[2018-09-16 16:17] VITALS: BP 111/69
[2018-09-16] MEDS ORDERED: IPRATROPIUM/ALBUTEROL 0.5-3(2.5)MG/3ML NEB HHN SCH (18:00)
== END 2018-09-16 17:01 | disposition left against medical advice (07) ==
LOC: ER 23:16 → CANBEDREQ 09-16 19:17
DX: J96.00 Acute respiratory failure, unspecified whether with hypoxia or hypercapnia (principal); J44.1 Chronic obstructive pulmonary disease with (acute) exacerbation; I13.0 Hypertensive heart and chronic kidney disease with heart failure and stage 1 through stage 4 chronic kidney disease, or unspecified chronic kidney disease; E11.22 Type 2 diabetes mellitus with diabetic chronic kidney disease; N18.9 Chronic kidney disease, unspecified; I50.9 Heart failure, unspecified; D64.9 Anemia, unspecified; N28.9 Disorder of kidney and ureter, unspecified; J98.11 Atelectasis; Z79.899 Other long term (current) drug therapy; Z87.891 Personal history of nicotine dependence
CPT/HCPCS: 36415; 36600; 71045; 80048; 80053; 80061; 82375; 82550; 82553; 82805; 82962; 83036; 83880; 84439; 84484; 85025; 85379; 93005; 93970; 94640; 96365; 96375; 99284; J2270; J2405; J2930; J3475; J7030; J7611